=== PATIENT | female | born 1990 ===

== ENCOUNTER 2020-11-28 20:26 | Emergency (ER) | payer BC, SELFPAY ==
[2020-11-28 20:30] VITALS: BP 126/65; PULSE 63; RESP 20; TEMP 36.7; O2SAT 99
--- NOTE | 2020-11-28 20:43 | ED.ANIMALBIT ---
HPI - Animal Bite General Chief Complaint: Animal Bite Stated Complaint: cut hand Source: patient, family and RN notes reviewed Mode of arrival: ambulatory Limitations: no limitations History of Present Illness complaint: animal bite Onset (ago): minute(s) (20) Animal: dog Mechanism: bite Location - Extremities: Left: hand Pain description: dull Context: animals fighting Associated symptoms: bleeding Treatments prior to arrival: wound dressing(s) Related Data Patient tetanus UTD: Yes Home Medications Medication Instructions Recorded Confirmed etonogestrel 0.12 mg-ethinyl 1 vag ring VAGINAL ONCE 08/17/19 11/28/20 estradiol 0.015 mg/24 hr vaginal ring Allergies Allergy/AdvReac Type Severity Reaction Status Date / Time No Known Allergies Allergy Unverified 08/17/19 13:23 Review of Systems Review of Systems: All systems reviewed & are unremarkable except as noted in HPI and below PMFSH Past Medical History Medical History (Updated 11/28/20 @ 21:29 by Willis Mayer MD) Anxiety Nicotine dependence Obesity, Class II, BMI 35-39.9 Surgical History Surgical History No history of previous surgery Family History Family History Mother Factor 5 Leiden mutation, heterozygous Social History Social History Smoking packs per day: 0.5 Smoking cigarettes per day: 10.0 Years smoked: 2 Smoking pack-years: 1.00 Smoking status: Former smoker Tobacco type: cigarettes Alcohol intake: current Substance use: current Substance use type: marijuana Additional living arrangements comments: Additional occupation/education comments: [employer] Gender identity (if verbalized by the patient): Female Spiritual care concerns: No Exam Const: General: healthy appearing and no acute distress Nutritional Appearance: well nourished Orientation/consciousness: patient oriented x3 HENMT: Head: normal to inspection Ears: external ears normal Eyes: Conjunctivae: conjunctivae normal Pupils: Equal, round and reactive pupils present EOM: EOMs intact bilaterally Chest: Chest palpation & inspection: normal inspection of the chest Resp: Effort & Inspection: normal respiratory effort Auscultation: clear to auscultation bilaterally Cardio: Rate: regular rate Rhythm: regular rhythm GI: GI Palp: Yes Soft to palpation and No Tenderness to palpation present (GI) Auscultation: normal bowel sounds Back/Spine/Pelvis: Cervical Spine: cervical ROM normal Thoracic/Lumbar Spine: thoraco-lumbar ROM normal Skin: General skin exam: normal color Wounds: wounds noted laceration left lateral hand size (3.5 cm), puncture wound left dorsal hand size (0.5 cm) and other (X 2) Neuro: General: patient oriented x3, moves all extremities and no focal motor deficits Speech: normal speech Gait exam (Neuro): Normal gait present Extrem: General: normal to inspection and no pedal edema Psych: Appearance: grossly normal and well kempt Mental Status: mental status grossly normal Affect: normal affect Attitude: cooperative Thought content: Yes Normal thought content present Course Vital Signs Vital signs: Vital Signs Temperature 36.7 C 11/28/20 20:30 Pulse Rate 63 11/28/20 20:30 Respiratory Rate 20 11/28/20 20:30 Blood Pressure 126/65 11/28/20 20:30 Pulse Oximetry 99 11/28/20 20:30 Temperature 36.7 C 11/28/20 20:30 Pulse Rate 63 11/28/20 20:30 Respiratory Rate 20 11/28/20 20:30 Blood Pressure 126/65 11/28/20 20:30 Pulse Oximetry 99 11/28/20 20:30 Procedures Laceration Laceration 1: Date: 11/28/20 Site: hand Side (If applicable): left Size (cm): 3.5 Description: irregular and contaminated Depth: simple, single layer Local Anesthetic: lidocaine 1%
[2020-11-28] MEDS: LIDOCAINE HCL 1% LOCAL INJ 20 ML VIAL (21:05)
[2020-11-28 21:33] VITALS: PULSE 82; RESP 20; TEMP 36.7; O2SAT 98
[2020-11-28] MEDS: AMOXICILLIN/CLAVULANATE K 875-125 MG TAB 1 TABLET PO (21:35)
== END 2020-11-28 21:40 | disposition home or self-care (01) ==
PROVIDERS: Emergency Provider Emergency Medicine; PCP Nurse Practitioner Family
DX: S61.412A Laceration without foreign body of left hand, initial encounter (principal); W54.0XXA Bitten by dog, initial encounter
CPT/HCPCS: 12002; 99282; 99283; A9270

== ENCOUNTER 2021-08-01 11:30 | Outpatient (CLI) | payer BC, SELFPAY ==
[2021-08-01 12:45] LABS: SARS-CoV-2 RNA PCR Positive (Negative)
== END 2021-08-01 11:31 | disposition home or self-care (01) ==
LOC: CHSLAB 11:33
PROVIDERS: PCP Nurse Practitioner Family; Visit Provider Family Medicine
DX: U07.1 COVID-19 (principal)
CPT/HCPCS: C9803; U0003; U0005

== ENCOUNTER 2024-06-18 21:35 | Observation (INO) | payer OTHER, SELFPAY ==
[2024-06-18] VITALS (9 sets, daily range): BP systolic 126–140; BP diastolic 73–93; PULSE 78–101; O2SAT 98–100
--- NOTE | 2024-06-18 22:00 | PC.NURSE ---
RN visually assessed pt's bleeding. Small amount of blood noted on the washcloth the pt had in her underwear. RN gave pt a pad to put in her undewear to better assess her bleeding.
--- NOTE | 2024-06-18 22:00 | LDADM ---
This patient, Jazmyn Mercado, was admitted to OB Post 116 on 06/18/24 at 21:35. Plans for labor, pain management and were discussed with patient. Patient/family oriented to hospital policies and general routines including ID bracelet, bed and alarms, visiting hours, pain management, procedures, bathroom and other care routines, personal items, smoking policy, room service/diet and guest tray routines, infant security routines, and visiting hours. Patient/Family are encouraged to report perceived risks to care and to ask questions if they do not understand what they are told or what they should do. See OBIX for further documentation.
--- NOTE | 2024-06-18 22:55 | PC.NURSE ---
RN assessed the bleeding on the pad. No new bleeding noted on the pt's pad.
--- NOTE | 2024-07-16 21:02 | PM.OBTRLD ---
OB - Triage/Final Diagnosis Visit Information Comments/Additional reasons for admission: I have assessed the risk for this patient, Jazmyn Mercado, and determined that she would benefit from observation care. Final Diagnosis (1) Vaginal bleeding during : Code(s): O46.90 - Antepartum hemorrhage, unspecified, unspecified trimester Status: Acute
== END 2024-06-18 23:31 | disposition home or self-care (01) ==
PROVIDERS: Admitting Provider Obstetrics & Gynecology; PCP Nurse Practitioner Family; Visit Provider Obstetrics & Gynecology
DX: O46.93 Antepartum hemorrhage, unspecified, third trimester (principal); Z3A.35 35 weeks gestation of pregnancy
CPT/HCPCS: G0378; G0379

== ENCOUNTER 2024-07-13 00:01 | Inpatient (IN) | payer OTHER, SELFPAY ==
[2024-07-13] VITALS (218 sets, daily range): BP systolic 74–156; BP diastolic 42–104; PULSE 55–142; RESP 16; TEMP 36.4–37.6; O2SAT 81–100; BMI 37.3
--- NOTE | 2024-07-13 00:21 | LDADM ---
This patient, Jazmyn Mercado, was admitted to Labor/Delivery/Recovery 106 on 07/13/24 at 00:01. Plans for labor, pain management and were discussed with patient. Patient/family oriented to hospital policies and general routines including ID bracelet, bed and alarms, visiting hours, pain management, procedures, bathroom and other care routines, personal items, smoking policy, room service/diet and guest tray routines, infant security routines, and visiting hours. Patient/Family are encouraged to report perceived risks to care and to ask questions if they do not understand what they are told or what they should do. See OBIX for further documentation.
[2024-07-13] MEDS: LACTATED RINGERS 1,000 ML 125 ML IV CONT ×2 (01:15→09:32)
[2024-07-13 01:16] LABS: Basophils Absolute Auto 0.2 K/mm3 (0.0-0.1); Basophils Percent Auto 1.3 % (0.2-1.2); Eosinophils Absolute Auto 0.5 K/mm3 (0-0.3); Eosinophils Percent Auto 3.6 % (0-4.4); Hematocrit 36.9 % (37.0-47.0); Hemoglobin 12.2 g/dL (12.0-15.0); Immature Granulocyte Absolute 0.45 K/mm3 (0.00-0.031); Immature Granulocyte Percent A 3.6 % (0-0.5); Lymphocytes Absolute Auto 2.91 K/mm3 (0.9-3.2); Mean Corpuscular HGB Conc 33.1 g/dl (32-36); Mean Corpuscular Hemoglobin 29.3 pg (26-34); Mean Corpuscular Volume 88.7 fl (80-100); Mean Platelet Volume 10.7 fl (7.4-10.4); Monocytes Absolute Auto 1.5 K/mm3 (0.1-0.6); Monocytes Percent Auto 11.5 % (2.6-8.5); Neutrophils Absolute Auto 7.2 K/mm3 (1.3-6.7); Platelet Count Result 309 k/mm3 (150-375); Red Blood Count 4.16 M/mm3 (4.2-5.4); Red Cell Distribution Width 12.8 % (11.5-14.5); White Blood Count 12.6 K/mm3 (4.5-10.0)
[2024-07-13] MEDS: AMPICILLIN 2 GM/NS 100 ML 2 GM/100 ML BAG IVPB (01:16)
[2024-07-13] MEDS: OXYTOCIN 30 UNITS/NS 500 ML 30 UNITS/500 ML BAG IV CONT (01:17)
[2024-07-13] MEDS: CALCIUM CARBONATE (TUMS) 500 MG (200 MG ELEMENTAL) PO (01:30)
[2024-07-13 02:04] LABS: HIV 1/2 Ab P24 Ag Result Negative (Negative)
[2024-07-13 02:22] LABS: Rapid Plasma Reagin Non-Reactive (NonReactive)
[2024-07-13] MEDS: AMPICILLIN 1 GM/NS 50 ML 1 GM/50 ML BAG IVPB ×3 (05:30→13:30)
--- NOTE | 2024-07-13 08:01 | WPDOBADMIT ---
Obstetrics - Admit Note Admission Note: record reviewed. No pertinent additions to the history and/or any subsequent changes in the physical findings that are not consistent with the expected course of the were found. Additions to the history and/or subsequent changes in the physical findings follow. IOL, SVE 3/80/-2, AROM clear odorless fluid, anticipate vaginal delivery
--- NOTE | 2024-07-13 12:01 | WPDANESEPPF ---
Anes - Initial Pre Proc Eval Procedure: labor epidural Date/Time: 07/13/24 12:01 Surgeon: Juni Turcios MD Pre Op Diagnosis: labor pain Pre Op Diagnosis: IOL Patient Data Age: 33 Gender: F Height: 1.7 m Weight: 108 kg Last Vital Signs Temp 36.6 C 07/13/24 10:00 Pulse 71 07/13/24 12:01 BP 156/93 H 07/13/24 12:01 Pulse Ox 97 07/13/24 07:36 O2 Del Method Room Air 07/13/24 00:21 Allergies Allergy/AdvReac Type Severity Reaction Status Date / Time No Known Allergies Allergy Verified 07/13/24 00:32 Home Medications ?Medication ?Instructions ?Recorded ?Confirmed ?Type vits no.126-ferrous fum 1 tablet PO DAILY 06/17/24 07/13/24 History 28 mg iron-folic acid 800 mcg tablet (Classic ) famotidine 20 mg tablet (Pepcid) 20 mg PO DAILY 07/13/24 07/13/24 History Laboratory Tests 07/13/24 00:17 WBC 12.6 H K/mm3 (4.5-10.0) RBC 4.16 L M/mm3 (4.2-5.4) Hgb 12.2 g/dL (12.0-15.0) Hct 36.9 L % (37.0-47.0) MCV 88.7 fl (80-100) MCH 29.3 pg (26-34) MCHC 33.1 g/dl (32-36) RDW 12.8 % (11.5-14.5) Plt Count 309 k/mm3 (150-375) MPV 10.7 H fl (7.4-10.4) Immature Gran % (Auto) 3.6 H % (0-0.5) Neut % (Auto) 57.0 % (45.5-73.1) Lymph % (Auto) 23.0 % (18.3-44.2) [place] % (Auto) 11.5 H % (2.6-8.5) Eos % (Auto) 3.6 % (0-4.4) Baso % (Auto) 1.3 H % (0.2-1.2) Lymph # (Auto) 2.91 K/mm3 (0.9-3.2) [place] # (Auto) 1.5 H K/mm3 (0.1-0.6) Eos # (Auto) 0.5 H K/mm3 (0-0.3) Baso # (Auto) 0.2 H K/mm3 (0.0-0.1) Abs Immat Gran (auto) 0.45 H K/mm3 (0.00-0.031) Absolute Neuts (auto) 7.2 H K/mm3 (1.3-6.7) Absolute Nucleated RBC 0.000 K/mm3 (0.0-0.012) Nucleated RBC % 0.0 % (0.0-0.2) RPR Non-reactive (NonReactive) HIV 1&2 Ab/P24 Ag 4thGn Negative (Negative) Blood Type O Positive Antibody Screen Negative Patient hx anesthesia problems: none Family hx anesthesia problems: none Results Review: All pre-operative results and documents have been reviewed as part of the pre-operative evaluation. [facility] Past Medical History Medical History Anxiety Miscarriage Nicotine dependence Obesity, Class II, BMI 35-39.9 Surgical History Surgical History No history of previous surgery Family History Family History Mother Factor 5 Leiden mutation, heterozygous Social History Social History Smoking packs per day: 0.5 Smoking cigarettes per day: 10.0 Years smoked: 2 Smoking pack-years: 1.00 Smoking status: Former smoker Tobacco type: cigarettes Alcohol intake: current Alcohol use details: social Substance use: never Substance use type: marijuana Do You Feel Safe in your Home?: Yes Lack of Transportation: No Lack of Food: Never True Current Housing: I Have Housing Concerned About Future Housing: No Difficulty Paying Gas/Electric Bills: No Difficulty Paying for Meds: No Currently Unemployed: No Education: High School Diploma/GED Difficulty w/ Childcare or Family Care: No Living arrangements: with family Additional living arrangements comments: Occupation/Education: occupation Additional occupation/education comments: [employer] Gender identity (if verbalized by the patient): Female Spiritual care concerns: No Anes - Eval Final PreProcedure Day of Procedure 07/13/24 12:01 Patient weight: obese ASA classification: II Anesthetic plan: proceed Anesthesia type and monitoring: regional epidural and standard monitoring Results Review: All pre-operative results and documents have been reviewed as part of the pre-operative evaluation. Informed Consent: The patient's anesthetic plan and its attendant risks and benefits were discussed with the patient/family/POA. Questions were solicited and answers provided to the satisfaction of the patient/family/POA.
[2024-07-13] MEDS: ONDANSETRON INJ 4 MG/2 ML VIAL IV PUSH (15:30)
--- NOTE | 2024-07-13 18:39 | PM.OBPRVD ---
OB - Vaginal Delivery Note Procedure Delivery date: 07/13/24 Induction method: AROM and Per Pitocin Protocol Delivery monitor: External FHT and External Uterine Route of delivery: Episiotomy description: Right Mediolateral Delivery repair: vicryl Specimen: No Quantitative Blood Loss (ml): 125 Anesthesia type: Epidural Disposition: Floor Narrative: pt pushing effectively and perineum unable to stretch, FHR 80's, discussed with pt RML to ease delivery. RML and then baby delivered easily with one push Baby Date of : 07/13/24 Time of : 18:23 Gestational Age by Date: 39 Infant gender: Male presentation: vertex position: Right Occiput Anterior Placenta delivery description: Spontaneous Cord Vessel Description: 3 Vessels and Delayed Cord Clamping score one minute: 9 score five minutes: 9
[2024-07-13] MEDS: OXYTOCIN 30 UNITS/NS 500 ML 30 UNITS/500 ML BAG 125 UNITS IV CONT (18:53)
[2024-07-13] MEDS: IBUPROFEN 600 MG TABLET PO (19:31)
[2024-07-13] MEDS: BENZOCAINE 20% AER SPR (*SP) 56 GM CAN 1 SPRAY TOPICAL (19:32)
[2024-07-13] MEDS: WITCH HAZEL 40 PADS 1 PAD TOPICAL (19:32)
[2024-07-13] MEDS: ACETAMINOPHEN 325 MG TABLET 650 MG PO (19:32)
[2024-07-14 01:30] VITALS: BP 123/70; PULSE 84; RESP 16; TEMP 37.1; O2SAT 101
[2024-07-14] MEDS: ACETAMINOPHEN 325 MG TABLET 650 MG PO ×4 (01:42→20:45)
[2024-07-14] MEDS: IBUPROFEN 600 MG TABLET PO ×4 (01:43→20:45)
--- NOTE | 2024-07-14 02:21 | PC.NURSE ---
2130- pt admitted to room #292, oriented pt to room. Admission packet reviewed with pt and FOB. Pt instructed to call when needing to get up oob, pt agreed.
[2024-07-14 05:05] VITALS: BP 123/75; PULSE 89; RESP 16; TEMP 37; O2SAT 100
[2024-07-14 05:26] LABS: Hematocrit 32.2 % (37.0-47.0); Hemoglobin 10.5 g/dL (12.0-15.0)
[2024-07-14 07:40] VITALS: BP 136/76; PULSE 66; RESP 18; TEMP 36.6; O2SAT 99
--- NOTE | 2024-07-14 08:00 | PC.NURSE ---
Observed mother with latched to the [right] breast in [cradle] position. [was] able to maintain an appropriate latch. Mother [declines] nipple pain/discomfort [throughout feeding]. Mom can tell when he is just on the nipple vs. when he has a deeper latch. Mother was shown how to create a deeper latch while baby is actively nursing. He did begin smacking during the feeding and we adjusted the latch to stop the loss of suction. Encouraged mother to keep infant awake and nursing at the breast for 15 minutes. admission packet given and reviewed. Mom declines WIC at this time but knows we can send over a referral if she chooses. She has her own Mom Cozy pump and hopes to add pumping in once is well established so she can create a stockpile of milk for baby. Mother voiced understanding of the education shared, to call for assistance if the does not latch or if there is discomfort with . name/number on communication board. Reported to the Primary RN.?
[2024-07-14] MEDS: DOCUSATE SODIUM 100 MG CAPSULE PO ×2 (08:07→17:31)
[2024-07-14] MEDS: MULTIVIT/MIN/PREN/FOL AC/IRON TABLET 1 TAB PO (08:11)
--- NOTE | 2024-07-14 08:34 | P.PNOB_ITS ---
OB - PN: Subj Subjective Date/time seen: 07/14/24 08:34 Patient comments: no complaints, pain well controlled, incisional pain, tolerating diet and flatus present OB - PN: Obj Data Labs 07/14/24 04:49 Labs: Laboratory Results - last 24 hr 07/14/24 04:49 Hgb 10.5 L Hct 32.2 L OB - PN A/P Plan day: 1 Plan: routine care Comments: No problems, routine care Time Spent With Patient Time: Total time spent is greater than 50% in coordination of care (as documented) at patient's floor/unit and/or counseling patient: Exam 2 Const: General: comfortable, no acute distress and alert Resp: Effort & Inspection: normal respiratory effort Auscultation: no crackles, no rales and no rhonchi Cardio: Rate: regular rate Heart sounds: no click, no murmurs and no rubs GI: Inspection: non-distended GI Palp: No Tenderness to palpation present (GI) Auscultation: normal bowel sounds Other: Incision - CDI Extrem: General: normal to inspection, no pedal edema and no calf tenderness
[2024-07-14 11:15] VITALS: BP 135/75; PULSE 92; RESP 16; TEMP 37.1; O2SAT 98
[2024-07-14 11:35] VITALS: BP 122/76; PULSE 74; RESP 18; TEMP 36.5; O2SAT 98
--- NOTE | 2024-07-14 16:32 | WPDANLDPN2 ---
Anes-Prog Note L&D Date/Time: 07/14/24 16:32 Comfortable throughout: labor and delivery Neuraxial method: epidural Epidural/Spinal procedure site: clean & non-tender Neuro status: Neuro function grossly intact. Cardiovascular status: normal Respiratory status: normal Airway patency: baseline Mental status: baseline Post-Op hydration status: normal Vital Signs: Last Vital Signs Temp 36.5 C 07/14/24 11:35 Pulse 74 07/14/24 11:35 Resp 18 07/14/24 11:35 BP 122/76 07/14/24 11:35 Pulse Ox 98 07/14/24 11:35 O2 Del Method Room Air 07/14/24 11:15 Pain score (VAS): 0 I/O: Intake & Output 07/14/24 07/14/24 07/14/24 07:59 15:59 23:59 Intake Total 480 Balance 480 Post-procedural complaints: none Patient feedback: Patient satisfied with anesthetic care.
[2024-07-15] MEDS: IBUPROFEN 600 MG TABLET PO ×2 (02:37→08:53)
[2024-07-15] MEDS: ACETAMINOPHEN 325 MG TABLET 650 MG PO ×2 (02:38→08:53)
[2024-07-15 07:25] VITALS: BP 121/70; PULSE 70; RESP 18; TEMP 36.9; O2SAT 98
[2024-07-15] MEDS: MULTIVIT/MIN/PREN/FOL AC/IRON TABLET 1 TAB PO (08:54)
[2024-07-15] MEDS: DOCUSATE SODIUM 100 MG CAPSULE PO (08:54)
[2024-07-15] MEDS: MEASLES,MUMPS,RUBELLA VACCINE 0.5 ML VIAL SUB-Q (08:54)
--- NOTE | 2024-07-15 09:21 | P.PNOB_ITS ---
OB - PN: Subj Subjective Date/time seen: 07/15/24 09:21 Interval history: PPD#2 Doing well, no issues Pain well controlled Breast feeding Ready for discharge home today OB - PN: Obj Data Labs 07/14/24 04:49 OB - PN A/P Assessment and Plan (1) (spontaneous vaginal delivery): Code(s): O80 - Encounter for full-term uncomplicated delivery Status: Acute Plan day: 2 Plan: routine care and discharge home Time Spent With Patient Time: Total time spent is greater than 50% in coordination of care (as documented) at patient's floor/unit and/or counseling patient: Review of Systems 2 Review of Systems: All systems reviewed & are unremarkable except as noted in HPI and below Exam 2 Const: General: comfortable and no acute distress O rientation/consciousness: patient oriented x3 Resp: Effort & Inspection: normal respiratory effort
--- NOTE | 2024-07-15 09:25 | P.DS_ITS ---
DS: Admitting Diagnosis Discharge Date 07/15/24 Admitting Diagnosis labor DS: Discharge Diagnosis Discharge Diagnosis (1) (spontaneous vaginal delivery): Code(s): O80 - Encounter for full-term uncomplicated delivery Status: Acute OB - DS: Summary OB Procedures : None OB Procedures Intrapartum: Spontaneous Vag Delivery OB Procedures: : None Peripartum Data Episiotomy description: Right Mediolateral Time Spent with Patient Time attestation: Total time spent providing and/or coordinating discharge services: Discharge Plan Discharge Attending physician on discharge: Mandeep Baldwin Consulting providers: Radha Carballo Discharging Clinician: Mandeep Baldwin Patient Disposition: Home, Self-Care Activity: may shower, as tolerated and pelvic rest Diet: as tolerated Patient Instructions: Antibiotic Form Patient Language: Turkmen Stand Alone Forms: General Discharge Information Follow-up/Referrals: Radha Carballo CNM [Certified Nurse [place] [facility]] - 5 Weeks Discharge Medications: New docusate sodium 100 mg Capsule 100 mg PO BID PRN (Reason: Constipation) Qty: 60 0RF ibuprofen 600 mg Tablet 600 mg PO Q6H PRN (Reason: Cramping) Qty: 30 0RF Continued Classic 28 mg iron- 800 mcg Tablet 1 tablet PO DAILY Discontinued famotidine [Pepcid] 20 mg tablet 20 mg PO DAILY Date of admission: 07/13/24 00:01 Primary Care Provider: Ila Gill Admitting Provider: Juni Turcios Attending physician on admission: Juni Turcios Condition: Stable
--- NOTE | 2024-07-15 14:07 | PC.NURSE ---
0750 Introductions were made, then consulted with patient to assess needs related to . Mother led the conversation with her?plans to feed?her and the?experience so far. Mother does plan on exclusively but baby did receive one formula bottle through the night as baby would not latch. Encouraged understanding of the benefits of skin to skin (demonstrating unwrapping infant and placing upright on her chest), stimulating with massage touch, changing positions to encourage wakefulness, how to watch for early feeding cues, responsive feeding, feeding on demand (aiming for 8-12 times in 24 hours, about every 2-3 hours), milk production, building/maintaining a milk supply, duration of feeding, signs of adequate intake/output and how to record on the feeding sheet. Infant is going to the nursery to see the mural painter at this time, mother to call out with next feeding so RN could assess latch and positioning. 1024 RN checked on mother as she had not heard from her, per mother baby breastfed at 0910 for 15 mins without any pain but mother does have a small blister on her right nipple. Plan is to discharge home later today, please call with next feeding. 1130 Mother called, she works well with her with encouragement and education. Reviewed positioning and ear, shoulder, hip alignment, supporting the breast to facilitate a deep latch, asymmetrical latch (off-center), leading with the chin with a big, open, wide gape and body close to mother. Infant latched optimally to the [right] breast in [football] position. Education given to the mother of how to visualize the suckling (with good rocking jaw motion), swallows (dropping of the lower jaw) and how to listen for drinking at the breast (the ka sound). was [able] to maintain latch without pain to mother protecting the nipple with optimal positioning and latching, swallows heard by RN. Reviewed comfort measures of healing with a warm, wet washcloth to rinse breast, then leave open to air-dry, good handwashing when or touching the breast/nipples to prevent infection. Mother voiced understanding of skin to skin, stimulating with massage touch, responsive feedings, hand expressed colostrum, talking to infant to encourage if it has been 2 -2.5 hours since the start of the last , to call if infant does not latch, or if there is discomfort with . Resources used for education were facilitated with the [visual educational handouts/ tool/mom and baby guide], Inpatient/outpatient resources provided with business card, feeding sheet, name written on the communication board, and the mom/baby guide. Parents voiced understanding of information, demonstrated learning and will call if there is a request for assistance. Reported to the Primary RN.
[2024-07-16 10:37] VITALS: BP 135/88; PULSE 70; RESP 18; TEMP 36.7; O2SAT 99
--- OUTSIDE RECORDS SUMMARY | 2024-07-18 06:53 | XMS_ITS | Patient Health Summary ---
Author Organization [facility] Address [address] [place] [address] Care Team Providers Care Ordnance Technician Name Role Phone Unavailable Primary Care Provider Unavailabl e Note from [facility],non-owned Affiliates and Associated Physician Practices is amultiple site organization consisting of ambulatory clinics and hospital sitesin [place], [place], [place] and [place]. This disclosure is being madepursuant to the Care Everywhere program and may not contain all information available regarding this patient. 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
--- OUTSIDE RECORDS SUMMARY | 2024-07-18 06:53 | XMS_ITS | Encounter Summary ---
Author Organization [facility] Address [address] [place] [address] Care Team Providers Care Long Goods Drier Name Role Phone Unavailable Primary Care Provider Unavailabl e Reason for Visit * Reason Onset Date Comments Appointment 08/27/2019 Encounter Details Date Type Department Care Team (Late st Contact Info) Description 08/27/2019 Telephone [facility] [address] [place] [address] Michelle Bhakta Appointment Social History Tobacco Use Types Packs/Day Years Used Date Smoking Tobacco: Never Assessed Sex and Gender Information Value Date Recorded Sex Assigned at Not on file Gender Identity Not on file Sexual Orientation Not on file documented as of this encounter Miscellaneous Notes * Telephone Encounter - Michelle Busch - 08/27/2019 9:43 AM CST Left patient a voicemail regarding her appointment tomorrow asking her to give us a call so that wecan update and verify her insurance. 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
--- OUTSIDE RECORDS SUMMARY | 2024-07-18 06:53 | XMS_ITS | Clinical Summary ---
Author Organization [facility] Address [address] [place] [address] Care Team Providers Care Clothing Sales Assistant Name Role Phone Unavailable Primary Care Provider Unavailabl e Source Comments [facility],non-owned Affiliates and Associated Physician Practices is amultiple site organization consisting of ambulatory clinics and hospital sitesin [place], [place], [place] and [place]. This disclosure is being madepursuant to the Care Everywhere program and may not contain all information available regarding this patient. 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 08/18/2019 Social History Tobacco Use Types Packs/Day Years Used Date Smoking Tobacco: Never Assessed Sex and Gender Information Value Date Recorded Sex Assigned at Not on file Gender Identity Not on file Sexual Orientation Not on file Plan of Treatment Health Maintenance Due Date Last Done Comments PAP SMEAR 1992 HIV SCREENING 11/23/2007 HEPATITIS C SCREENING 11/18/2010 DTAP/TDAP/TD VACCINES (1 - Tdap) 11/23/2011 HEPATITIS B VACCINE (1 of 3 - 19+ 3-dose series) 11/23/2011 DEPRESSION SCREENING 07/29/2023 COVID-19 VACCINE ( - 2023-2 5 season) 2024 INFLUENZA VACCINE (#1) 2024 ZOSTER VACCINE (1 of 2) 2042 HIB VACCINE Aged Out No longer eligi ble based on patient's age to complete this topic HPV VACCINE Aged Out No longer eligi ble based on patient's age to complete this topic MENINGOCOCCAL VACCINE Aged Out No allen maxim eligible based on patient's age to complete this topic PNEUMOCOCCAL VACCINE Aged Out No long er eligible based on patient's age to complete this topic
--- OUTSIDE RECORDS SUMMARY | 2024-07-18 06:53 | XMS_ITS | Continuity of Care Document ---
Author Organization [facility] Address [address] [place] [address] Care Team Providers Care Sow Farm Technician Name Role Phone JUVENTINO DIGGS Primary Care Provider Assessment Encounter Date Assessment Date Assessment LastModified by Organization Details LastModified Time 07/08/2024 07/08/2024 Patient is _38__weeks . Discussed plan. Not available 07/09/2024 11:20:12 Plan of Treatment Reminders Order Date Submit Date Provider Last Modified By Organization Details Last Modified Time Details Appointments None record ed. Lab None record ed. Referral None record ed. Procedures None record ed. Surgeries None record ed. Imaging None record ed. Medication Orders None record ed. Patient TargetsNo targets recorded. Patient InstructionsNo instructions recorded. Reason for Referral None Reported. Results Created Date Observation Date Name Description Value Unit Range Abnormal Flag Note LastModifiedBy Organization Detail LastModifiedTime 05/04/2005/04/2024 non-s tress test No observ ation record ed. [email or web address] Dahinda [address], [place], [address], 05/04/2024 12:19:11 05/04/20 24 05/04/2024 US, obste tric, follo w-up No observ ation record ed. [email or web address] Lavinia [address], [place], [address], 05/04/2024 22:27:21 05/04/20 24 05/04/2024 US, obste tric, bioph ysica l profi le No observ ation record ed. [email or web address] Dahinda [address], [place], [address], 05/04/2024 17:18:32 05/18/2005/18/2024 US, obste tric, follo w-up No observ ation record ed. [facility] [address], [place], [address], 05/18/2024 18:12:58 05/18/20 24 05/18/2024 US, obste tric, follo w-up No observ ation record ed. [address]avin[address], [place], [address], 05/20/2024 18:31:50 06/19/20 24 06/19/2024 US, obste tric, follo w-up No observ ation record ed. [email or web address] [address], [place], [address], 06/19/2024 20:46:58 06/19/2006/19/2024 US, obste tric, follo w-up No observ ation record ed. [facility] [address], [place], [address], 06/19/2024 17:04:08 Result Notes None recorded. Problems Name Problem SNOMED Code Status Onset Date Resolution Date Notes Provider Name and Address Organization Details Recorded Time Pregnanc y test negative 658181457 Completed 201412/08/2021 Negative Pregnanc y Test;Pra ctice ID: 0001 Jamee snyder [facility] 2 11:30:32 Amenorrh ea 50782641 Completed 201412/08/2021 AMENORRH EA;Pract ice ID: 0001 Jamee snyder [facility] 2 11:30:31 Routine antenata l care Completed 201412/08/2021 Supervis ion of other normal pregnanc y;Practi ce ID: 0001 Jamee snyder, [facility] 2 11:30:31 Pregnanc y test positive 876964989 Completed 201412/08/2021 Positive Pregnanc y Test;Pra ctice ID: 0001 Jamee snyder, [facility] 2 11:30:32 Uterine size for dates discrepa ncy [id number] Completed 201412/08/2021 UTERINE SIZE MARKO-ANTE PAR;Prac lovely ID: 0001 [facility] 11:30:32 Threaten ed miscarri age 70704819 Completed 201412/08/2021 Threaten ed , antepart um;Pract ice ID: 0001 [facility] 2 11:30:32 Missed miscarri age [id number] Completed 201412/08/2021 Missed ;Practic e ID: 0001 Jamee snyder, [facility] 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 2 11:30:32 Pelvic and perineal pain 315691814 Completed 201812/08/2021 Pelvic and perineal pain;Pra ctice ID: 0001 Jamee snyder, [facility] 2 11:30:32 Finding related to pregnanc y Completed 201812/08/2021 Recurren t pregnanc y loss;Pra ctice ID: 0001 Jamee snyder [facility] 2 11:30:32 Female infertil ity associat ed with anovulat ion [id number] Completed 201812/08/2021 Female infertil ity associat ed with anovulat ion;Prac lovely ID: 0001 Jamee Cruz [facility], [facility] 2 11:30:31 Surveill ance of contrace ption Completed 201812/08/2021 Encounte r for surveill ance of contrace ptives, unspecif ied;Prac lovely ID: 0001 Jamee Cruz [facility], [facility] 2 11:30:32 Venereal disease screenin g Completed 201312/08/2021 Screenin g examinat ion for venereal disease; Recorded Elsewher e: No Locat ion: [facility] S ource: EHR [employer] Specialist bee: N Odilonti ce ID: 0001 Ken lable Time: 02:15:00 PM Jamee Cruz [facility] 2 11:30:31 Complete Completed 201312/08/2021 Spontane ous , complete , without mention of complica tion;Rec orded Elsewher e: No Locat ion: [facility] S ource: EHR [employer] Specialist bee: N Odilonti ce ID: 0001 Ken lable Time: 11:45:00 AM Jamee Cruz [facility] 2 11:30:32 Speciali zed medical examinat ion Completed 201312/08/2021 Other specifie d chlamydi al diseases ;Recorde d Elsewher e: No Locat ion: [facility] S ource: EHR [employer] Specialist bee: N Practi ce ID: 0001 Ken lable Time: 02:15:00 PM Jamee Cruz [facility] 2 11:30:32 Adult health examinat ion Completed 201312/08/2021 ROUTINE MEDICAL EXAM;Rec orded Elsewher e: No Locat ion: [facility] S ource: EHR [employer] Specialist bee: N Odilonti ce ID: 0001 Ken lable Time: 02:15:00 PM Jamee Cruz [facility], [facility] 2 11:30:32 Speciali zed medical examinat ion Completed 201312/08/2021 ROUTINE COMIC BOOK WRITER EXAMINAT ION;Ramone rded Elsewher e: No Locat ion: [facility] S ource: EHR [employer] Specialist bee: N Odilonti ce ID: 0001 Ken lable Time: 02:15:00 PM Jamee snyder, [facility] 2 11:30:32 Oligomen orrhea [id number] Completed 201412/08/2021 Oligomen orrhea;R ecorded Elsewher e: No Locat ion: [facility] S ource: EHR [employer] Specialist bee: N Odilonti ce ID: 0001 Ken lable Time: 06:00:00 PM Jamee Cruz [facility], [facility] 2 11:30:32 Screenin g for malignan t neoplasm of cervix Completed 201312/08/2021 Screenin g for malignan t neoplasm s of the cervix;R ecorded Elsewher e: No Locat ion: [facility] S ource: EHR [employer] Specialist bee: N Emilie ce ID: 0001 Ken lable Time: 02:15:00 PM Jamee Cruz [facility], [facility] 2 11:30:31 Pregnanc y 32412407 Active 2023 Marian Valdez [facility], [facility] 4 13:31:50 Mixed anxiety and depressi ve disorder 127719109 Active 4 EPDS score 15 Marian Valdez [facility], [facility] 4 13:32:54 Past pregnanc y history of multiple miscarri ages Active former partner had transloc ation Radha Carballo, [place] [address], [place], [address], [place] [facility] 4 14:03:22 Rubella non-immu ne 925451658 Active MMR PP Jessica snyder, [facility] 4 10:33:54 Rubella non-immu ne 239312660 Active MMR PP Jessica snyder, [facility] 4 10:33:54 Problem Notes None recorded. Procedures Surgical History Date Name Laterality Status Provider Name and Address Organization Details Recorded Time 2 Date of Last Pap Smear completed [facility] 04/22/2024 13:24:55 1 extraction of wisdom tooth completed [facility] 04/22/2024 13:29:15 Imaging Results None recorded. Procedure Notes None recorded. Medical Equipment None Reported. Allergies No known drug allergies Medications Name Sig Start Date Stop Date Status Note LastModified by Organization Details LastModified Time fluconazo le 100 mg tablet 07/13 completed Not Available Not Available Not Available azithromy ross 250 mg tablet 12/12 completed Not Available Not Available Not Available Cytotec 200 mcg tablet take 4 (800MCG) by Vaginal route every bedtime for 3 days 02/16 completed Prescrib ed Elsewher e: No [facility] odify By: kenneth angulo DateTime : 02/15/20 15 03:15:00 PM Not Available Not Available Not Available clomiphen e citrate 50 mg tablet take 1 Tablet by oral route every day for 5 days days 3-7 of cycle 01/30 completed Prescrib ed Elsewher e: No [facility] odify By: rianna flores DateTime : 01/27/20 19 03:00:00 PM Not Available Not Available Not Available sumatript an 25 mg tablet 12/12 completed Not Available Not Available Not Available Macrobid 100 mg capsule 05/20 completed Not Available Not Available Not Available ofloxacin 0.3 % ear drops 04/22 completed Not Available Not Available Not Available amitripty line 25 mg tablet 12/12 completed Not Available Not Available Not Available amitripty line 10 mg tablet 12/12 completed Not Available Not Available Not Available propranol ol ER 80 mg capsule,2 4 hr,extend ed release 12/12 completed Not Available Not Available Not Available misoprost ol 100 mcg tablet take 1 tablet by oral route 4 times every day after meals and at bedtime 04/30 completed Prescrib ed Elsewher e: Yes [facility] By: [email or web address] trick En counter DateTime : 07/15/20 13 09:45:00 AM Not Available Not Available Not Available Provera 10 mg tablet take 1 tablet by oral route every day 01/12 completed Prescrib ed Elsewher e: No Locat ion: [facility] odify By: leandra ossa DateTime : 01/04/20 15 06:00:00 PM Not Available Not Available Not Available mupirocin 2 % topical ointment 04/22 completed Not Available Not Available Not Available fluticaso ne propionat e 50 mcg/actua tion nasal spray,jaswant pension 12/12 completed Not Available Not Available Not Available amoxicill in 875 mg-potass ium clavulana te 125 mg tablet 04/22 completed Not Available Not Available Not Available etonogest rel 0.12 mg-ethiny l estradiol 0.015 mg/24 hr vaginal ring Insert 1 vaginal ring every month by vaginal route. 04/22 completed Not Available Not Available Not Available take 1 tablet by oral route every day 01/03 completed Prescrib ed Elsewher e: Yes [facility] By: ángel Encount er DateTime : 07/15/20 13 09:45:00 AM Not Available Not Available Not Available Raoul-C DHA 35 mg-1 mg-200 mg capsule take 1 capsule by oral route every day 01/03 completed Prescrib ed Elsewher e: No [facility] By: [email or web address] trick En counter DateTime : 04/30/20 14 02:15:00 PM Not Available Not Available Not Available LAMP SHADE MAKER-PNV-DH A 28 mg iron-1 mg-200 mg capsule take 1 capsule by oral route every day 01/12 completed Prescrib ed Elsewher e: No Locat ion: [facility] annamarie [facility] odify By: dmrose E ncounter DateTime : 01/04/20 15 06:00:00 PM Not Available Not Available Not Available Annovera 0.15 mg-0.013 mg/24 hr vaginal ring Insert ring vaginall y x 3wks, remove 1 wk ring free; then rinse & reinsert yearly vag ring. 04/22 completed Not Available Not Available Not Available Vitals Date Recorded Body weight Body mass index (BMI) Body height Systolic blood pressure Diastolic blood pressure Provider Name and Address Organization Details Last Updated DateTime 07/08/2024 642949.5 3828 g 39.7 kg/m2 167.01 cm 135 mm[Hg] 89 mm[Hg] Marian Valdez [facility] 18:06:56 Social History Question Answer Notes LastModified by Organizat ion Details LastModified Time Tobacco Smoking Status Current Some Day Smoker Jamee Anthony snyder, [facility] 12/12/2021 11:03:45 What Is Your Level Of Alcohol Consumption? None [email or web address] Information not available 04/22/2024 If You Are , What Was Your Level Of Alcohol Consumption Prior To ? Occasional [email or web address] Information not available 04/22/2024 Are You Blind Or Do You Have Difficulty Seeing? No Information not available 12/12/2021 What Is Your Level Of Caffeine Consumption? Occasional Information not available 12/12/2021 In The 14 Days Before Symptom Onset, Have You Had Close Contact With A Laboratory-confir med COVID-19 While That Case Was Ill? No [email or web address] Information not available 04/22/2024 In The 14 Days Before Symptom Onset, Have You Had Close Contact With A Person Who Is Under Investigation For COVID-19 While That Person Was Ill? No Information not available 04/22/2024 Have You Been To An Area Known To Be High Risk For COVID-19? No [email or web address] Information not available 04/22/2024 Are You Deaf Or Do You Have Serious Difficulty Hearing? No Information not available 12/12/2021 What Type Of Diet Are You Following? REGULAR Information not available 12/12/2021 What Is The Highest Grade Or Level Of School You Have Completed Or The Highest Degree You Have Received? 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 No Information not available 04/22/2024 Do You Use Protection During Sex? No [email or web address] Information not available 04/22/2024 Do You Use Your Seat Belt Or Car Seat Routinely? Yes Information not available 12/12/2021 Do You Have Smoke And Carbon Monoxide Detectors In Your Home? Yes Information not available 12/12/2021 How Much Tobacco Do You Smoke? No [email or web address] Information not available 04/22/2024 Do You Feel Stressed (tense, Restless, Nervous, Or Anxious, Or Unable To Sleep At Night)? [id number] Information not available 12/12/2021 Do You Use Any Illicit Or Recreational Drugs? No Information not available 12/12/2021 Do You Use Sunscreen Routinely? Yes Information not available 12/12/2021 Has Tobacco Cessation Counseling Been Provided? Yes [email or web address] Information not available 04/22/2024 On What Date Was Tobacco Cessation Counseling Provided? 07/01/2024 [email or web address] Information not available 07/01/2024 Have You Used IV Drugs? No [email or web address] Information not available 04/22/2024 Do You Or Have You Ever Used Any Other Forms Of Tobacco Or Nicotine? Yes [email or web address] Information not available 04/22/2024 Sex: Unknown Functional Status Question Answer Note LastModified by Organizat ion Details LastModified Time Do you have difficulty walking or climbing stairs? No Information not available 12/12/2021 Are you able to walk? [email or web address] Information not available 12/12/2021 Are you able to care for yourself? Yes Information not available 12/12/2021 Do you have difficulty dressing or bathing? No Information not available 12/12/2021 What is your exercise level? Occasional Information not available 12/12/2021 Mental Status None recorded. Family History Relationship Description Onset Age of this Age Resolved Age Notes LastModified by Organization Details LastModified Time Mother Clotting factor V assay Not available 2021 11:03:07 Notes:factor iv - mom Moth er: Factor IV Medical History Condition Response Other N Blood Transfusion N Dermatologic Disorders N Gestational Diabetes N Anxiety Disorder Y Autoimmune disease N Arthritis N Polyps N Infertility N Acid Reflux (GERD) Y Cancer N Varicosities N Stroke N Neurologic/Epilepsy N Fibromyalgia N Headaches N Kidney Disease N Heart Problems N Kidney or Bladder Problems N Eating Disorder N Art (IVF or FET) N Hepatitis/Liver Disease N No Past Medical History N Urinary Tract Infection N Asthma N Trauma/Violence N Thrombophilias N Allergies (Food, seasonal, environmental ) N Breast Cancer N Drug/Latex Allergies/Reactions N Lung Disease N Defects or Inherited Disease N Breast Problem N Hematologic disorders N Anesthesia Complications N History of STI N Deep Vein Thrombosis N Polycystic ovary syndrome N History of abnormal pap N Endometriosis N High Cholesterol N Thyroid Problems N GI Problems N Anemia N Psychiatric Illness N Ovarian Cancer N Diabetes N Pulmonary (TB, Asthma) N Eczema N Abuse/Domestic Violence N Depression/ depression Y Heart Disease N Pre-Eclampsia N Hypertension N Osteoporosis N Gynecological History Statement/Question Response Abnormal Pap N Flow Light Date of Last Mammogram Date of LMP 10/12/2023 On BCP's at Conception? N N Was last menstrual period normal Y STIs/STDs N HPV Vaccine Y Duration of Flow (days) 4 Current Control Method Are cycles usually normal Y Date of Last Colonoscopy Sexually Active? Y Date of DEXA bone scan Age of first menstrual cycle 15 Date of Last Pap Smear 07/13/2022 Sexual Problems? N LMP Approximate N Obstetrics History GPAL:G 5 P 0 0 4 0 Type Value Spontaneous 4 Living 0 Total 5 Past Encounters Encounter ID Performer Location Encounter Start Date Encounter Closed Date Diagnosis/Indication Diagnosis SNOMED-CT Code Diagnosis ICD10 Code [id number] Yolis Nazario Dah[facility] [address] [address] 06/19/2024 15:20:57 06/19/2024 16:27:38 Dilatation of renal pelvis 906866047 O36.8999 Z3A.35 [id number] Radha Carballo [facility] [address],[place] [address] 06/19/2024 15:21:10 06/19/2024 16:27:17 Gestation period, 35 weeks 83429792 Z3A.35 screening 2437 17096 Z36.85 [id number] Radha Carballo [facility] [address],[place] [address] 06/24/2024 09:21:04 06/24/2024 10:04:18 Gestation period, 36 weeks 95396472 Z3A.36 [id number] Radha Carballo [facility] [address],[place] [address] 07/01/2024 13:48:22 07/01/2024 16:28:18 Routine care 402100286 Z34.90 [id number] Radha Carballo [facility] [address],[place] [address] 07/08/2024 17:47:42 07/09/2024 11:57:03 Gestation period, 38 weeks 04847875 Z3A.38 Health Concerns Section Related Observation LastModified by Organization Detai ls LastModified Time None Recorded Concern Status LastModified by Organization Details LastModified Time None Recorded Payers Encounter Date Sequence Insurance Name Policy Number Policy Forbes Covered Member ID Forbes Member ID Guarantor Name 07/08/2024 1 [facility] ON OR AFTER 01/26/21 (MEDICAID REPLACEMENT - HMO) Yuli Mercado [id number] Yuli Mercado OBGyn Episode Ob Episode Information Episode Created Date Number of Fetuses Patient Bloodtype Patient rh Status Prepregnancy Weight lbs Domestic Partner Domestic Partner Phone Father Name Furnace Firer Status 04/22/20 24 1 O Positive [place] OPEN Fetus Data First Name Last Name Admitted to NICU Weight (g) Sex Living Outcome Pediatric Complications Fetus ID Race Codes Race Delivery Type [id number] Problems Problem Notes Problem Name Start Date End Date Resolution Snomed Code Not e Rubella non-immune 051428659 M MR BHATTI Past history of multiple miscarriages 9564333746 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 Mixed anxiety and depressive disorder 627668093 4 EPDS score 15 David Calculation DAVID Calculation Method Initial David Date Initial Exam Date Initial Exam Provider Initial Ultrasound Date Last Menstrual Period Date Ultra Sound Weeks Gestation Conception by IVF Embryo Age at Transfer Date of Transfer 07/18/20 24 12/12/19 24 12/12/2023 10/12/2023 9 Eighteen To Twenty Week David Update Ultra Sound Date Fundal Height At Umbil Quickening Date Ultra Sound Latest Weeks Gestation Final David Confirmed By Final David Confirmed Date Final David Date Ultra Sound Latest Days Gestation 02/20/20 24 19 0 Pre-naomi Flowsheet Flowsheet Date 04/22/2024 Watkins Score Blood Edema Fundus Height Fundus Units Glucose Ketones Leukocytes Nitrite Labor Signs Protein Cervic Dilation Cervic Effacement Cervic Station neg none none trace Type Weight in lbs Pre/Post Dialysis Refused Weight 209.076591483986 BP Diastolic BP Location Tested BP Systolic BP Type 83 128 Fetus Heart Rate Present A 157 Present Fetus Movement A Yes Comments Patient states that is havin g heartburn, pain in rib area and some BH contractions. ok for tums, pepcid, begin routine prental care moved back from [place], reviewed office, precautions, +FM, GCT today f/u w eeks Flowsheet Date 05/04/2024 Watkins Score Blood Edema Fundus Height Fundus Units Glucose Ketones Leukocytes Nitrite Labor Signs Protein Cervic Dilation Cervic Effacement Cervic Station none Type Weight in lbs Pre/Post Dialysis Refused 213.826629270081 BP Diastolic BP Location Tested BP Systolic BP Type 78 115 Fetus Heart Rate Present Fetus Movement A Yes Comments Patient states that is havin g some BH contractions. discussed rsv, tdap, covid, flu, education and precautions, decel heard on doppler plan NST today f/u 2 weeks Flowsheet Date 05/04/2024 Watkins Score Blood Edema Fundus Height Fundus Units Glucose Ketones Leukocytes Nitrite Labor Signs Protein Cervic Dilation Cervic Effacement Cervic Station Type Weight in lbs Pre/Post Dialysis Refused BP Diastolic BP Location Tested BP Systolic BP Type Fetus Heart Rate Present Fetus Movement Comments Flowsheet Date 05/04/2024 Watkins Score Blood Edema Fundus Height Fundus Units Glucose Ketones Leukocytes Nitrite Labor Signs Protein Cervic Dilation Cervic Effacement Cervic Station Type Weight in lbs Pre/Post Dialysis Refused BP Diastolic BP Location Tested BP Systolic BP Type Fetus Heart Rate Present Fetus Movement Comments Flowsheet Date 05/18/2024 [place]ins Score Blood Edema Fundus Height Fundus Units Glucose Ketones Leukocytes Nitrite Labor Signs Protein Cervic Dilation Cervic Effacement Cervic Station Type Weight in lbs Pre/Post Dialysis Refused BP Diastolic BP Location Tested BP Systolic BP Type Fetus Heart Rate Present Fetus Movement Comments Flowsheet Date 05/20/2024 Watkins Score Blood Edema Fundus Height Fundus Units Glucose Ketones Leukocytes Nitrite Labor Signs Protein Cervic Dilation Cervic Effacement Cervic Station none Type Weight in lbs Pre/Post Dialysis Refused 220.636128216265 BP Diastolic BP Location Tested BP Systolic BP Type 81 124 Fetus Heart Rate Present Fetus Movement A Yes Comments Patient states that is havin g some light cramping. reviewed US, discussed renal dilation plan rpt in 4 weeks, reviewed vaccines. planning classes at [place], discussed EIOL an option answered questions f/u 2 weeks Flowsheet Date 06/01/2024 Watkins Score Blood Edema Fundus Height Fundus Units Glucose Ketones Leukocytes Nitrite Labor Signs Protein Cervic Dilation Cervic Effacement Cervic Station 33 cm Type Weight in lbs Pre/Post Dialysis Refused 228.137503633193 BP Diastolic BP Location Tested BP Systolic BP Type 86 L arm 128 sitting Fetus Heart Rate Present A 145 Fetus Movement A Yes Comments no complaints, no problems, routine care, no contractions, no vaginal bleeding, no loss of fluid, no cramping Flowsheet Date 06/19/2024 Watkins Score Blood Edema Fundus Height Fundus Units Glucose Ketones Leukocytes Nitrite Labor Signs Protein Cervic Dilation Cervic Effacement Cervic Station Type Weight in lbs Pre/Post Dialysis Refused BP Diastolic BP Location Tested BP Systolic BP Type Fetus Heart Rate Present Fetus Movement Comments Flowsheet Date 06/19/2024 Watkins Score Blood Edema Fundus Height Fundus Units Glucose Ketones Leukocytes Nitrite Labor Signs Protein Cervic Dilation Cervic Effacement Cervic Station trace trace Type Weight in lbs Pre/Post Dialysis Refused 235.354323136269 BP Diastolic BP Location Tested BP Systolic BP Type 86 122 Fetus Heart Rate Present Fetus Movement A Yes Comments Patient had bleeding with in tercourse yesterday and some swelling. discussed precautions and education gbs next week efw 54% +FM Flowsheet Date 06/24/2024 Watkins Score Blood Edema Fundus Height Fundus Units Glucose Ketones Leukocytes Nitrite Labor Signs Protein Cervic Dilation Cervic Effacement Cervic Station trace 1cm 60% -2 Type Weight in lbs Pre/Post Dialysis Refused 236.895094100333 BP Diastolic BP Location Tested BP Systolic BP Type 84 129 Fetus Heart Rate Present Fetus Movement A Yes Comments Patient states that is havin g some heartburn and swelling. reviewed precautions, education ok for pepcid and tums, +FM IOL 07/13 at 0001 f/u one week GBS + Flowsheet Date 07/01/2024 Watkins Score Blood Edema Fundus Height Fundus Units Glucose Ketones Leukocytes Nitrite Labor Signs Protein Cervic Dilation Cervic Effacement Cervic Station trace 1cm 60% -2 Type Weight in lbs Pre/Post Dialysis Refused Weight [id number] BP Diastolic BP Location Tested BP Systolic BP Type 91 129 Fetus Heart Rate Present Fetus Movement A Yes Comments Patient is having back pain, rib pain, cramping, discharge and swelling. reviewed education and precautions, +FM reviewed plan, f/u one weeks Flowsheet Date 07/08/2024 Watkins Score Blood Edema Fundus Height Fundus Units Glucose Ketones Leukocytes Nitrite Labor Signs Protein Cervic Dilation Cervic Effacement Cervic Station 39 cm 3cm 70% -2 Type Weight in lbs Pre/Post Dialysis Refused [id number] BP Diastolic BP Location Tested BP Systolic BP Type 89 135 Fetus Heart Rate Present A 145 Fetus Movement A Yes Comments Patient is having rib pain, cramping and discharge. will change IOL to low dose pitocin reviewed precautions and education reviewed +Fm Menstrual History Last Menstrual Date Menses Monthly On Bcp Conception Prior Menses Frequency Hcg Plus Date Menarche Onset Age 0310/12/2023 Delivery Information Delivery Date Delivery Type Labor Anesthesia Weeks Gestation Incision Type Labor Labor Length Hrs Delivered By Post Complications Tubal Sterilization Discharge Date Comments Discharge Information Feeding Method Contraceptive Method Maternal HG B and HCT Levels
--- OUTSIDE RECORDS SUMMARY | 2024-07-18 06:53 | XMS_ITS | Referral Summary ---
Author Organization [facility] Address [address] [place] [address] Care Team Providers Care Car Seat Upholsterer Name Role Phone Unavailable Primary Care Provider Unavailabl e Source Comments [facility],non-owned Affiliates and Associated Physician Practices is amultiple site organization consisting of ambulatory clinics and hospital sitesin [place], [place], [place] and [place]. This disclosure is being madepursuant to the Care Everywhere program and may not contain all information available regarding this patient. 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
--- OUTSIDE RECORDS SUMMARY | 2024-07-18 06:53 | XMS_ITS | Data Portability ---
Author Organization [facility] [place] Address [address] [place] [address] [place] [address] Care Team Providers Care Sample Book Maker Name Role Phone JUVENTINO DIGGS Primary Care Provider Assessment Encounter Date Assessment Date Assessment LastModified by Organization Details LastModified Time 06/19/2024 06/19/2024 Patient is _35__weeks . Discussed plan. Not available 06/19/2024 16:22:30 06/24/2024 06/24/2024 Patient is __36_weeks . Discussed plan. Not available 06/24/2024 10:01:08 07/01/2024 07/01/2024 Patient is _37__weeks . Discussed plan. Not available 07/01/2024 15:46:56 07/08/2024 07/08/2024 Patient is _38__weeks . Discussed plan. Not available 07/09/2024 11:20:12 Plan of Treatment Reminders Order Date Submit Date Provider Last Modified By Organization Details Last Modified Time Details Appointments None recorded. Lab streptococc us group B, culture, unspecified specimen 2023 024 [facility] (Lab), [address], [place], [address], 16:40:18 Referral None recorded. Procedures None recorded. Surgeries None recorded. Imaging US, obstetric, follow-up 2023 024 [email or web address] [place], [address], [address], [place], [address], 21:15:15 Medication Orders None recorded. Patient TargetsNo targets recorded. Patient InstructionsNo instructions recorded. Reason for Referral None Reported. Results Created Date Observation Date Name Description Value Unit Range Abnormal Flag Note LastModifiedBy Organization Detail LastModifiedTime 06/19/20 24 06/19/2024 CULTU RE: GROUP B STREP SCREE N, REFLE X SUSCE PTIBI LITY result report SEE RESULT S BELOW abnormal Test: Cultu re: Group B Strep , Refle x Susce ptibi lity ([facility]/ [facility]/K H/[facility] ) Speci men Sourc e: Vagin a/Rec jamar Speci men Type: Vagin al/Re ctal Speci men Date: 06/19 1511 Resul t Date: 06/23 1535 Resul t Statu s: Final resul t Abnor mal: Yes Resul ting Lab: [facility] [address] [facility] [address] Tel: [phone] CULTU RE ----- ----- ----- --- Posit cecilia for Strep tococ cus agala ctiae (Grou p B) (Abno rmal) Clind amyci n = resis tant, eryth romyc in = resis tant. Cefaz alexander may be used for intra partu m proph ylaxi s in penic illin -leo rgic women at low risk, and Vanco mycin is recom eva d for women at high risk for anaph ylaxi s. Susce ptibi lity testi ng is not neces tessa for these drugs . Not Available [facility] (Lab) [address], [place], [address], 06/23/2024 16:40:18 06/19/2006/19/2024 US, obste tric, follo w-up No observ ation record ed. [email or web address], [place], [address], 06/19/2024 20:46:58 06/19/20 24 06/19/2024 US, obste tric, follo w-up No observ ation record ed. [facility] [address], [place], [address], 06/19/2024 17:04:08 Result Notes None recorded. Problems Name Problem SNOMED Code Status Onset Date Resolution Date Notes Provider Name and Address Organization Details Recorded Time Pregnanc y test negative 794866328 Completed 201412/08/2021 Negative Pregnanc y Test;Pra ctice ID: 0001 Jamee Cruz [facility], [facility] 2 11:30:32 Amenorrh ea [id number] Completed 201412/08/2021 AMENORRH EA;Pract ice ID: [address] [facility] 2 11:30:31 Routine antenata l care Completed 201412/08/2021 Supervis ion of other normal pregnanc y;Practi ce ID: 0001 Jamee Cruz [facility], [facility] 2 11:30:31 Pregnanc y test positive [id number] Completed 201412/08/2021 Positive Pregnanc y Test;Pra ctice ID: 0001 Jamee Cruz [facility], [facility] 2 11:30:32 Uterine size for dates discrepa ncy 895034012 Completed 201412/08/2021 UTERINE SIZE MARKO-ANTE PAR;Prac lovely ID: 0001 Jamee Cruz [facility], [facility] 2 11:30:32 Threaten ed miscarri age 26473206 Completed 201412/08/2021 Threaten ed , antepart um;Pract ice ID: [address] [facility] 2 11:30:32 Missed miscarri age 37045504 Completed 201412/08/2021 Missed ;Practic e ID: 0001 Jamee Cruz null, [facility] 2 11:30:[address] Concept Completed 201812/08/2021 Encntr for slot editor exam (general ) (routine ) w/o abn findings ;Practic e ID: 0001 Jamee snyder [facility] 2 11:30:32 Pelvic and perineal pain 518382372 Completed 201812/08/2021 Pelvic and perineal pain;Pra ctice ID: [address] [facility] 2 11:30:32 Finding related to pregnanc y Completed 201812/08/2021 Recurren t pregnanc y loss;Pra ctice ID: 0001 Jamee Cruz [facility] 2 11:30:32 Female infertil ity associat ed with anovulat ion [id number] Completed 201812/08/2021 Female infertil ity associat ed with anovulat ion;Prac lovely ID: [address] [facility] 2 11:30:31 Surveill ance of contrace ption Completed 201812/08/2021 Encounte r for surveill ance of contrace ptives, unspecif ied;Prac lovely ID: [address] [facility] 2 11:30:32 Venereal disease screenin g Completed 201312/08/2021 Screenin g examinat ion for venereal disease; Recorded Elsewher e: No Locat ion: [place] [facility] [facility] S ource: EHR Mapping Pilot bee: N Practi ce ID: 0001 [place] Time: 02:15:00 [facility] 11:30:31 Complete Completed 201312/08/2021 Spontane ous , complete , without mention of complica tion;Rec orded Elsewher e: No Locat ion: [facility] S ource: EHR Mapping Pilot bee: N Practi ce ID: 0001 Ken lable Time: 11:45:00 AM Jamee Cruz [facility], [facility] 2 11:30:32 Speciali zed medical examinat ion Completed 201312/08/2021 Other specifie d chlamydi al diseases ;Recorde d Elsewher e: No Locat ion: [facility] S ource: EHR Mapping Pilot bee: N Practi ce ID: 0001 Ken lable Time: 02:15:[address] [facility] 2 11:30:32 Adult health examinat ion Completed 201312/08/2021 ROUTINE MEDICAL EXAM;Rec orded Elsewher e: No Locat ion: [facility] S ource: EHR Mapping Pilot bee: N Practi ce ID: 0001 Ken lable Time: 02:15:00 PM Jamee Cruz [facility], [facility] 2 11:30:32 Speciali zed medical examinat ion Completed 201312/08/2021 ROUTINE UNDERWRITING TECHNICIAN EXAMINAT ION;Ramone rded Elsewher e: No Locat ion: [facility] S ource: EHR Mapping Pilot bee: N Odilonti ce ID: 0001 Ken lable Time: 02:15:[address] [facility] 2 11:30:32 Oligomen orrhea [id number] Completed 201412/08/2021 Oligomen orrhea;R ecorded Elsewher e: No Locat ion: [facility] S ource: EHR Mapping Pilot bee: N Practi ce ID: 0001 Ken lable Time: 06:00:[address] [facility] 2 11:30:32 Screenin g for malignan t neoplasm of cervix Completed 201312/08/2021 Screenin g for malignan t neoplasm s of the cervix;R ecorded Elsewher e: No Locat ion: [place] [facility] S ource: EHR Mapping Pilot bee: N Emilie ce ID: 0001 Ken lable Time: 02:15:00 PM Jamee Cruz [facility], [facility] 2 11:30:31 Pregnanc y 91776640 Active 2023 Marian Valdez [facility], [facility] 4 13:31:50 Mixed anxiety and depressi ve disorder 251713671 Active 4 EPDS score 15 Marian Valdez [facility], [facility] 4 13:32:54 Past pregnanc y history of multiple miscarri ages Active former partner had transloc ation Radha Carballo, [place] [address], [place], [address], [place] [facility] 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 4 10:33:54 Rubella non-immu ne 107851208 Active MMR PP Jessica Rae [facility], [facility] 4 10:33:54 Problem Notes None recorded. Procedures Surgical History Date Name Laterality Status Provider Name and Address Organization Details Recorded Time 2 Date of Last Pap Smear completed Marian Valdez [facility] 04/22/2024 13:24:55 1 extraction of wisdom tooth completed Marian Valdez [facility] 04/22/2024 13:29:15 Imaging Results Imaging Date Name Status LastModified by Organiz ation Details LastModified Time 06/19/2024 US, obstetric, follow-up completed [email or web address], [place], [address], 06/19/2024 20:46:58 06/19/2024 US, obstetric, follow-up completed [facility] [address], [place], [address], 06/19/2024 17:04:08 Procedure Notes None recorded. Medical Equipment None [...] Prescrib ed Elsewher e: No Locat ion: [facility] odify By: kenneth angulo DateTime : 02/15/20 15 03:15:00 PM Not Available Not Available Not Available clomiphen e citrate 50 mg tablet take 1 Tablet by oral route every day for 5 days days 3-7 of cycle 01/30 completed Prescrib ed Elsewher e: No Locat ion: [facility] odify By: rianna flores DateTime : 01/27/20 [...] Prescrib ed Elsewher e: Yes Loca tion: [facility] odify By: [email or web address] trick En counter DateTime : 07/15/20 13 09:45:00 AM Not Available Not Available Not Available Provera 10 mg tablet take 1 tablet by oral route every day 01/12 completed Prescrib ed Elsewher e: No Locat ion: [place] [facility] odify By: leandra E ncounter DateTime : 01/04/20 15 06:00:00 [...] Prescrib ed Elsewher e: Yes Loca tion: [place] [facility] odify By: ángel Bacon er DateTime : 07/15/20 13 09:45:00 AM Not Available Not Available Not Available Raoul-C DHA 35 mg-1 mg-200 mg capsule take 1 capsule by oral route every day 01/03 completed Prescrib ed Elsewher e: No Locat ion: [place] [facility] odify By: [email or web address] trick En counter DateTime : 04/30/20 14 02:15:00 PM Not Available Not Available Not Available SAVINGS COUNSELOR-PNV-DH A 28 mg iron-1 mg-200 mg capsule take 1 capsule by oral route every day 01/12 completed Prescrib ed Elsewher e: No Locat ion: [place] [facility] odify By: leanrda E ncounter DateTime : 01/04/20 15 06:00:00 [...] and Address Organization Details Last Updated DateTime 06/19/2024 019705.2 0695 g 38.2 kg/m2 167.01 cm 122 mm[Hg] 86 mm[Hg] Marian Valdez [facility] 4 16:06:28 Date Recorded Body height Body mass index (BMI) Body weight Systolic blood pressure Diastolic blood pressure Provider Name and Address Organization Details Last Updated DateTime 06/24/2024 167.01 cm 38.4 kg/m2 251003.7 9932 g 129 mm[Hg] 84 mm[Hg] Marian Valdez [facility] 4 09:31:01 Date Recorded Body height Body mass index (BMI) Body weight Systolic blood pressure Diastolic blood pressure Provider Name and Address Organization Details Last Updated DateTime 07/01/2024 167.01 cm 38.4 kg/m2 992634.8 g 129 mm[Hg] 91 mm[Hg] [facility] 4 14:17:54 Date Recorded Body weight Body mass index (BMI) Body height Systolic blood pressure Diastolic blood pressure Provider Name and Address Organization Details Last Updated DateTime 07/08/2024 835063.5 3828 g 39.7 kg/m2 167.01 cm 135 mm[Hg] 89 mm[Hg] Mariankalyan Valdez [facility] 4 18:06:56 Social History Question Answer Notes LastModified by Organizat ion Details LastModified Time Tobacco Smoking Status Current Some Day [facility] 12/12/2021 11:03:45 What Is Your Level Of Alcohol Consumption? None [email or web address] Information not available 04/22/2024 If You Are , What Was Your Level Of Alcohol Consumption Prior To ? Occasional [email or web address] Information not available 04/22/2024 Are You Blind Or Do You Have Difficulty Seeing? No Information not available 12/12/2021 What Is Your Level Of Caffeine Consumption? Occasional Information not available 12/12/2021 In The 14 Days Before Symptom Onset, Have You Had Close Contact With A Laboratory-confir med COVID-19 While That Case Was Ill? No [email or web address] Information not available 04/22/2024 In The 14 Days Before Symptom Onset, Have You Had Close Contact With A Person Who Is Under Investigation For COVID-19 While That Person Was Ill? No [email or web address] Information not available 04/22/2024 Have You Been To An Area Known To Be High Risk For COVID-19? No [email or web address] Information not available 04/22/2024 Are You Deaf Or Do You Have Serious Difficulty Hearing? No Information not available 12/12/2021 What Type Of Diet Are You Following? REGULAR Information not available 12/12/2021 What Is The Highest Grade Or Level Of School You Have Completed Or The Highest Degree You Have Received? 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 No [email or web address] Information not available 04/22/2024 Do You Use Protection During Sex? No [email or web address] Information not available 04/22/2024 Do You Use Your Seat Belt Or Car Seat Routinely? Yes Information not available 12/12/2021 Do You Have Smoke And Carbon Monoxide Detectors In Your Home? Yes Information not available 12/12/2021 How Much Tobacco Do You Smoke? No Information not available 04/22/2024 Do You Feel Stressed (tense, Restless, Nervous, Or Anxious, Or Unable To Sleep At Night)? [id number] Information not available 12/12/2021 Do You Use Any Illicit Or Recreational Drugs? No Information not available 12/12/2021 Do You Use Sunscreen Routinely? Yes Information not available 12/12/2021 Has Tobacco Cessation Counseling Been Provided? Yes [email or web address] Information not available 04/22/2024 On What Date Was Tobacco Cessation Counseling Provided? 07/01/2024 [email or web address] Information not available 07/01/2024 Have You Used IV Drugs? No [email or web address] Information not available 04/22/2024 Do You Or Have You Ever Used Any Other Forms Of Tobacco Or Nicotine? 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 Medical History Condition Response Allergies (Food, seasonal, environmental ) N Other N Drug/Latex Allergies/Reactions N Blood Transfusion N Breast Cancer N Dermatologic Disorders N Lung Disease N Defects or Inherited Disease N Breast Problem N Gestational Diabetes N Hematologic disorders N Anesthesia Complications N History of STI N Deep Vein Thrombosis N Polycystic ovary syndrome N Anxiety Disorder Y Autoimmune disease N Arthritis N Polyps N Infertility N Acid Reflux (GERD) Y History of abnormal pap N Cancer N Varicosities N Stroke N Neurologic/Epilepsy N Endometriosis N High Cholesterol N Fibromyalgia N Headaches N Kidney Disease N Heart Problems N Thyroid Problems N Kidney or Bladder Problems N GI Problems N Eating Disorder N Anemia N Art (IVF or FET) N Psychiatric Illness N Ovarian Cancer N Diabetes N Pulmonary (TB, Asthma) N Hepatitis/Liver Disease N No Past Medical History N Eczema N Urinary Tract Infection N Abuse/Domestic Violence N Asthma N Trauma/Violence N Depression/ depression Y Heart Disease N Pre-Eclampsia N Hypertension N Osteoporosis N Thrombophilias N Gynecological History Statement/Question Response Abnormal Pap [...] Diagnosis/Indication Diagnosis SNOMED-CT Code Diagnosis ICD10 Code [id number] Chelsie Barrera [facility] [address] [address] 05/27/2020 11:15:48 05/27/2020 15:43:48 Gynecologic examination 69200866 Z01.419 Disorder of breast 52658 008 N64.9 [id number] Chelsie Barrera [facility] [address],[place] [address] 12/12/2021 10:34:47 12/12/2021 11:59:57 Gynecologic examination 21662261 Z01.419 Multiple skin tags 99248 7009 L91.8 D22.9 Contracept ion care management 253835895 Z30.9 [id number] Chelsie Barrera [facility] [address] [place] [address] 07/13/2022 13:34:04 07/13/2022 14:58:02 Screening for malignant neoplasm of cervix 907397765 Z12.4 Contracept ion care management 351185407 Z30.9 [id number] Radha Carballo [facility] [address] [place] [address] 04/22/2024 11:59:21 04/22/2024 14:05:36 Gestation period, 27 weeks 26049669 Z3A.27 Venereal d isease screening 381926727 Z11.3 Routine an tenatal care 061257860 Z34.90 [id number] Radha Carballo [facility] [address],[place] [address] 05/04/2024 11:01:38 05/04/2024 11:51:07 Gestation period, 29 weeks 27584578 Z3A.29 [id number] Jamee Rodriguez [place] [address],[place] [address] 05/04/2024 12:03:38 05/04/2024 12:29:23 heart deceleration 409218421 O36.8399 [id number] Kerrie Wood [place] [address],[place] [address] 05/04/2024 12:15:48 05/04/2024 17:20:59 Nonreassuring status 709857141 O36.[id number] [facility] [address],[place] [address] 05/18/2024 17:06:31 05/18/2024 18:06:32 Medical examination for suspected condition 465085256 Z03.74 Z3A.31 [id number] Radha Carballo CNM [place] [address],[place] [address] 05/20/2024 11:01:33 05/20/2024 12:41:56 Gestation period, 31 weeks 91209222 Z3A.31 [id number] Juni Turcios MD [place] [address],[place] [address] 06/01/2024 14:45:41 06/01/2024 15:57:26 Routine care 544115275 Z34.[id number] [facility] [address],[place] [address] 06/19/2024 15:20:57 06/19/2024 16:27:38 Dilatation of renal pelvis 950539367 O36.8999 Z3A.35 [id number] Radha Carballo CNM [place] [address],[place] [address] 06/19/2024 15:21:10 06/19/2024 16:27:17 Gestation period, 35 weeks 81136327 Z3A.35 screening 2437 04881 Z36.85 [id number] [facility] [address] [place] [address] 06/24/2024 09:21:04 06/24/2024 10:04:18 Gestation period, 36 weeks 10321175 Z3A.36 [id number] [facility] [address] [place] [address] 07/01/2024 13:48:22 07/01/2024 16:28:18 Routine care 786659390 Z34.90 [id number] [facility] [address],[place] [address] 07/08/2024 17:47:42 07/09/2024 11:57:03 Gestation period, 38 weeks 92632961 Z3A.38 Health Concerns Section Related Observation LastModified by Organization Detai ls LastModified Time None Recorded Concern Status LastModified by Organization Details LastModified Time None Recorded Advance Directives Directive None Recorded Payers Encounter Date Sequence Insurance Name Policy Number Policy Forbes Covered Member ID Forbes Member ID Guarantor Name 06/19/[address] [facility] ON OR AFTER 01/26/21 (MEDICAID REPLACEMENT - HMO) Yuli Mercado [id number] Yuli Mercado 06/19/[address] [facility] ON OR AFTER 01/26/21 (MEDICAID REPLACEMENT - HMO) Yuli Mercado [id number] Yuli Mercado 06/24/[address] [facility] ON OR AFTER 01/26/21 (MEDICAID REPLACEMENT - HMO) Yuli Mercado [id number] Yuli Mercado 07/01/[address] [facility] ON OR AFTER 01/26/21 (MEDICAID REPLACEMENT - HMO) Yuli Mercado [id number] Yuli Mercado 07/08/[address] [facility] ON OR AFTER 01/26/21 (MEDICAID REPLACEMENT - HMO) Yuli Mercado [id number] Yuli Mercado OBGyn Episode Ob Episode Information Episode Created Date Number of Fetuses Patient Bloodtype Patient rh Status Prepregnancy Weight lbs Domestic Partner Domestic Partner Phone Father Name Pedal Assembler Status 12/13/19 22 1 CLOSED Fetus Data First Name Last Name Admitted to NICU Weight (g) Sex Living Outcome Pediatric Complications Fetus ID Race Codes Race Delivery Type , Spontane ous [id number] David Calculation DAVID Calculation Method Initial David Date Initial Exam Date Initial Exam Provider Initial Ultrasound Date Last Menstrual Period Date Ultra Sound Weeks Gestation Conception by IVF Embryo Age at Transfer Date of Transfer 0 Eighteen To Twenty Week David Update Ultra Sound Date Fundal Height At Umbil Quickening Date Ultra Sound Latest Weeks Gestation Final David Confirmed By Final David Confirmed Date Final David Date Ultra Sound Latest Days Gestation 0 0 Menstrual History Last Menstrual Date Menses Monthly On Bcp Conception Prior Menses Frequency Hcg Plus Date Menarche Onset Age Delivery Information Delivery Date Delivery Type Labor Anesthesia Weeks Gestation Incision Type Labor Labor Length Hrs Delivered By Post Complications Tubal Sterilization Discharge Date Comments 8 Discharge Information Feeding Method Contraceptive Method Maternal HG B and HCT Levels Ob Episode Information Episode Created Date Number of Fetuses Patient Bloodtype Patient rh Status Prepregnancy Weight lbs Domestic Partner Domestic Partner Phone Father Name Pedal Assembler Status 12/13/19 22 1 CLOSED Fetus Data First Name Last Name Admitted to NICU Weight (g) Sex Living Outcome Pediatric Complications Fetus ID Race Codes Race Delivery Type , Spontane ous [id number] David Calculation DAVID Calculation Method Initial David Date Initial Exam Date Initial Exam Provider Initial Ultrasound Date Last Menstrual Period Date Ultra Sound Weeks Gestation Conception by IVF Embryo Age at Transfer Date of Transfer 0 Eighteen To Twenty Week David Update Ultra Sound Date Fundal Height At Umbil Quickening Date Ultra Sound Latest Weeks Gestation Final David Confirmed By Final David Confirmed Date Final David Date Ultra Sound Latest Days Gestation 0 0 Menstrual History Last Menstrual Date Menses Monthly On Bcp Conception Prior Menses Frequency Hcg Plus Date Menarche Onset Age Delivery Information Delivery Date Delivery Type Labor Anesthesia Weeks Gestation Incision Type Labor Labor Length Hrs Delivered By Post Complications Tubal Sterilization Discharge Date Comments 3 Discharge Information Feeding Method Contraceptive Method Maternal HG B and HCT Levels Ob Episode Information Episode Created Date Number of Fetuses Patient Bloodtype Patient rh Status Prepregnancy Weight lbs Domestic Partner Domestic Partner Phone Father Name Pedal Assembler Status 12/13/19 22 1 CLOSED Fetus Data First Name Last Name Admitted to NICU Weight (g) Sex Living Outcome Pediatric Complications Fetus ID Race Codes Race Delivery Type , Spontane ous [id number] David Calculation DAVID Calculation Method Initial David Date Initial Exam Date Initial Exam Provider Initial Ultrasound Date Last Menstrual Period Date Ultra Sound Weeks Gestation Conception by IVF Embryo Age at Transfer Date of Transfer 0 Eighteen To Twenty Week David Update Ultra Sound Date Fundal Height At Umbil Quickening Date Ultra Sound Latest Weeks Gestation Final David Confirmed By Final David Confirmed Date Final David Date Ultra Sound Latest Days Gestation 0 0 Menstrual History Last Menstrual Date Menses Monthly On Bcp Conception Prior Menses Frequency Hcg Plus Date Menarche Onset Age Delivery Information Delivery Date Delivery Type Labor Anesthesia Weeks Gestation Incision Type Labor Labor Length Hrs Delivered By Post Complications Tubal Sterilization Discharge Date Comments 5 Discharge Information Feeding Method Contraceptive Method Maternal HG B and HCT Levels Ob Episode Information Episode Created Date Number of Fetuses Patient Bloodtype Patient rh Status Prepregnancy Weight lbs Domestic Partner Domestic Partner Phone Father Name Pedal Assembler Status 12/13/19 22 1 CLOSED Fetus Data First Name Last Name Admitted to NICU Weight (g) Sex Living Outcome Pediatric Complications Fetus ID Race Codes Race Delivery Type , Spontane ous [id number] David Calculation DAVID Calculation Method Initial David Date Initial Exam Date Initial Exam Provider Initial Ultrasound Date Last Menstrual Period Date Ultra Sound Weeks Gestation Conception by IVF Embryo Age at Transfer Date of Transfer 0 Eighteen To Twenty Week David Update Ultra Sound Date Fundal Height At Umbil Quickening Date Ultra Sound Latest Weeks Gestation Final David Confirmed By Final David Confirmed Date Final David Date Ultra Sound Latest Days Gestation 0 0 Menstrual History Last Menstrual Date Menses Monthly On Bcp Conception Prior Menses Frequency Hcg Plus Date Menarche Onset Age Delivery Information Delivery Date Delivery Type Labor Anesthesia Weeks Gestation Incision Type Labor Labor Length Hrs Delivered By Post Complications Tubal Sterilization Discharge Date Comments 4 Discharge Information Feeding Method Contraceptive Method Maternal HG B and HCT Levels Ob Episode Information Episode Created Date Number of Fetuses Patient Bloodtype Patient rh Status Prepregnancy Weight lbs Domestic Partner Domestic Partner Phone Father Name Pedal Assembler Status 04/22/20 24 1 O Positive [place] OPEN Fetus Data First Name Last Name Admitted to NICU Weight (g) Sex Living Outcome Pediatric Complications Fetus ID Race Codes Race Delivery Type [id number] Problems Problem Notes Problem Name Start Date End Date Resolution Snomed Code Not e Rubella non-immune 488675001 M MR PP Past history of multiple miscarriages [id number] 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 Mixed anxiety and depressive disorder [id number] 4 EPDS score 15 David Calculation DAVID [...] Latest Days Gestation 02/20/20 24 19 0 Pre- Flowsheet Flowsheet Date 04/22/2024 Watkins Score Blood Edema Fundus Height Fundus Units Glucose Ketones Leukocytes Nitrite Labor Signs Protein Cervic Dilation Cervic Effacement Cervic Station neg none none trace Type Weight in lbs Pre/Post Dialysis Refused Weight 209.741700524313 BP Diastolic BP Location Tested BP Systolic BP Type 83 128 Fetus Heart Rate Present A 157 Present Fetus Movement A Yes Comments Patient states that is havin g heartburn, pain in rib area and some BH contractions. ok for tums, pepcid, begin routine prental care moved back from [place], reviewed office, precautions, +FM, GCT today f/u w eeks Flowsheet Date 05/04/2024 Watkins Score Blood Edema Fundus Height Fundus Units Glucose Ketones Leukocytes Nitrite Labor Signs Protein Cervic Dilation Cervic Effacement Cervic Station none Type Weight in lbs Pre/Post Dialysis Refused 213.845421216771 BP Diastolic BP Location Tested BP Systolic [...] Present Fetus Movement Comments Flowsheet Date 05/18/2024 Watkins Score Blood Edema Fundus Height Fundus [...] Type Weight in lbs Pre/Post Dialysis Refused 220.134561042654 BP Diastolic BP Location Tested BP Systolic BP Type 81 124 Fetus Heart Rate Present Fetus Movement A Yes Comments Patient states that is havin g some light cramping. reviewed US, discussed renal dilation plan rpt in 4 weeks, reviewed vaccines. planning classes at [place], discussed EIOL an option answered questions f/u 2 weeks Flowsheet Date 06/01/2024 Watkins Score Blood Edema Fundus Height Fundus Units Glucose Ketones Leukocytes Nitrite Labor Signs Protein Cervic Dilation Cervic Effacement Cervic Station 33 cm Type Weight in lbs Pre/Post Dialysis Refused 228.177693774718 BP Diastolic BP Location Tested BP Systolic [...] Type Weight in lbs Pre/Post Dialysis Refused 235.066652180237 BP Diastolic BP Location Tested BP Systolic [...] Type Weight in lbs Pre/Post Dialysis Refused 236.116101073326 BP Diastolic BP Location Tested BP Systolic [...] Weight in lbs Pre/Post Dialysis Refused Weight 236.699134033524 BP Diastolic BP Location Tested BP Systolic [...] Type Weight in lbs Pre/Post Dialysis Refused 244.233786159972 BP Diastolic BP Location Tested BP Systolic [...]
--- OUTSIDE RECORDS SUMMARY | 2024-07-18 06:53 | XMS_ITS | Encounter Summary ---
Author Organization [facility] Address [facility] [facility] [place] [address] Care Team Providers Care [employer] Name Role Phone Unavailable Primary Care Provider Unavailabl e Encounter Details Date Type Department Care Team (Latest Contact Info) Description 08/28/2019 1:15 PM INTERNAL MEDICINE PHYSICIAN - 08/28/2019 11:59 PM INTERNAL MEDICINE PHYSICIAN Hospital Encounter [facility]/ EVALUATION UNIT [address] [place] [address] Franky Galvan MD [address] [facility] [address] [place] [address] Discharge Disposition: Home or Self Care Social History Tobacco Use Types Packs/Day Years Used Date Smoking Tobacco: Never Assessed Sex and Gender Information Value Date Recorded Sex Assigned at Not on file Gender Identity Not on file Sexual Orientation Not on file documented as of this encounter Progress Notes * Tala Hanson, PhD - 08/28/2019 3:13 PM CST GENETICS CONSULTATION NOTE [facility] PATIENT: Jazmyn Mercado DATE OF : 1990 DATE SEEN: 08/28/2019 SEEN BY: Tala Hanson, PhD, MS, [facility] PATIENT PROFILE: Ms. Mercado is a , 28 year old. She was accompanied by [place]on (). A total of 60 minutes were spent with the patient. CURRENT : Ms. 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 RELEVANT FAMILY HISTORY: Family history is remarkable for: 1) Patient's partner with a balanced translocation: 46,XY,t(7;10)(q36.1;q21.2) 2) Partner's mother with reported recurrent loss -- miscarriage of spontaneously conceived twin and triplet pregnancies with partner's father, three healthy children through different FOB 3) Partner's brother with suspected heart defect -- hole in heart and on a lot of monitors as a kid -- secondary to motor vehicle accident There is no other reported family history of defects, neurodevelopmental disability, or recurrent loss. Full pedigree available in Media. 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 This was identified by karyotype as part of a workup for recurrent loss (RPL). The primary concern for the couple was the health of the patient's partner, who carries the translocation. We explained that in balanced carriers where all genetic material is present, we do not anticipate any health concerns outside of problems like RPL. We also discussed the cytogenetic possibilities for future pregnancies which include: ?? Normal chromosomes ?? Balanced translocation ?? Unbalanced translocation with derivative chromosome??7 (7q deletion, 10q duplication) ?? Unbalanced translocation with derivative chromosome??10 (10q deletion, 7q duplication) ?? Other chromosome abnormalities? Each of these were discussed, and possible features of associated deletions and duplications were briefly reviewed. Exact prognosis for each unbalanced translocation is difficult to determine becausethere is very limited data on how the specific duplications/deletions may interact with each other.However, the couple have an increased risk for loss based on specific analysis of the partner's translocation performed by Dr. Shelby Yu. Of recognized pregnancies, 47% are expected tomiscarry. This risk includes general background risk of approximately 20%. In addition, the chance that the couple will have a liveborn child with an unbalanced translocation is 1.5-2.5%. ?? Balanced translocations can be inherited or de matthew in an individual. The patient's partner reported that his mother miscarried two multiple pregnancies. It is possible that the family history of RPLis related to the balanced translocation seen in the patient. However, there are many factors that can contribute to miscarriage. Without more information, it is difficult to know how this history may relate to the partner's translocation. Testing is available for the partner's parents to determineif the translocation was inherited and a potential risk for other family members. ?? We discussed reproductive and testing options for the couple. Preimplantation genetic testing (PGT)as an option in future pregnancies through IVF, and the patient reported that she has done significant research on this topic. PGT may allow for the selection of chromosomally normal or balanced embryos for transfer. diagnostic testing is recommended for any achieved with an embryo selected via PGT. Chorionic villus sampling (CVS) and amniocentesis are available for diagnostic testing for any . The benefits, risks, and limitations of both options were discussed. We also discussed the options of using a sperm donor and adoption. We briefly discussed other screening and testing options, including noninvasive testing (NIPT). The patient reported that she and her partner are considering all options at this time. 2) We briefly discussed the partner's family history of a possible congenital heart defect (CHD) inhis brother. Recurrence risk for a CHD in any of the partner's future children is approximately 1-2% compared to general population risk of 0.5%; echocardiogram may be recommended in future pregnancies. Specific information about the defect and any potential surgeries or other treatments werenot available at the time of the session. If more information becomes available, we are happy to review it to provide a more specific risk assessment. PLAN: A letter summarizing information from our discussion will be sent to the patient and referring OB (see Letters). The patient has my contact information and was encouraged to call with any questions or concerns. Tala Hanson, PhD, MS, [facility] Certified Genetic Counselor [facility] Genetic Counseling Primary Care Nurse cc: Dr. 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
--- OUTSIDE RECORDS SUMMARY | 2024-07-18 06:54 | XMS_ITS | Continuity of Care Document ---
Author Organization [facility] Address [address] [place] [address] [address] Care Team Providers Care Aviation Project Manager Name Role Phone JUVENTINO DIGGS Primary Care Provider Assessment No assessment recorded. Plan of Treatment Reminders Order Date Submit Date Provider Last Modified By Organization Details Last Modified Time Details Appointments None record ed. Lab None record ed. Referral None record ed. Procedures None record ed. Surgeries None record ed. Imaging US, obstet nia, follow -up 024 06/19/20 24 [email or web address] [address], [address], [place], [address], 21:15:15 Medication Orders None record ed. Patient TargetsNo targets recorded. Patient InstructionsNo instructions recorded. Reason for Referral None Reported. Results Created Date Observation Date Name Description Value Unit Range Abnormal Flag Note LastModifiedBy Organization Detail LastModifiedTime 05/04/2005/04/2024 non-s tress test No observ ation record ed. [email or web address] [facility] [address], [place], [address], 05/04/2024 12:19:11 05/04/20 24 05/04/2024 US, obste tric, follo w-up No observ ation record ed. [email or web address] [address], [place], [address], 05/04/2024 22:27:21 05/04/20 24 05/04/2024 US, obste tric, bioph ysica l profi le No observ ation record ed. [email or web address] [address], [place], [address], 05/04/2024 17:18:32 05/18/20 24 05/18/2024 US, obste tric, follo w-up No observ ation record ed. [facility] [address], [place], [address], 05/18/2024 18:12:58 05/18/2005/18/2024 US, obste tric, follo w-up No observ ation record ed. [address], [place], [address], 05/20/2024 18:31:50 06/19/20 24 06/19/2024 US, obste tric, follo w-up No observ ation record ed. [email or web address] [address], [place], [address], 06/19/2024 20:46:58 06/19/2006/19/2024 US, obste tric, follo w-up No observ ation record ed. [facility] [address], [place], [address], 06/19/2024 17:04:08 Result Notes None recorded. Problems Name Problem SNOMED Code Status Onset Date Resolution Date Notes Provider Name and Address Organization Details Recorded Time Pregnanc y test negative 733435938 Completed 201412/08/2021 Negative Pregnanc y Test;Pra ctice ID: 0001 Jamee Cruz [facility] 2 11:30:32 Amenorrh ea 40079471 Completed 201412/08/2021 AMENORRH EA;Pract ice ID: 0001 [facility] 11:30:31 Routine antenata l care Completed 201412/08/2021 Supervis ion of other normal pregnanc y;Practi ce ID: 0001 Jamee snyder [facility] 2 11:30:31 Pregnanc y test positive 841588853 Completed 201412/08/2021 Positive Pregnanc y Test;Pra ctice ID: 0001 Jamee snyder [facility] 2 11:30:32 Uterine size for dates discrepa ncy [id number] Completed 201412/08/2021 UTERINE SIZE MARKO-ANTE PAR;Prac lovely ID: 0001 Jamee snyder [facility] 2 11:30:32 Threaten ed miscarri age 15734343 Completed 201412/08/2021 Threaten ed , antepart um;Pract ice ID: 0001 Jamee Cruz [facility] 2 11:30:32 Missed miscarri age 66877451 Completed 201412/08/2021 Missed ;Practic e ID: 0001 Jamee snyder [facility] 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 2 11:30:32 Pelvic and perineal pain 962143875 Completed 201812/08/2021 Pelvic and perineal pain;Pra ctice ID: 0001 Jamee snyder [facility] 2 11:30:32 Finding related to pregnanc y Completed 201812/08/2021 Recurren t pregnanc y loss;Pra ctice ID: 0001 Jamee snyder [facility] 2 11:30:32 Female infertil ity associat ed with anovulat ion [id number] Completed 201812/08/2021 Female infertil ity associat ed with anovulat ion;Prac lovely ID: 0001 Jamee Cruz [facility], [facility] 2 11:30:31 Surveill ance of contrace ption Completed 201812/08/2021 Encounte r for surveill ance of contrace ptives, unspecif ied;Prac lovely ID: 0001 Jamee Cruz [facility], [facility] 2 11:30:32 Venereal disease screenin g Completed 201312/08/2021 Screenin g examinat ion for venereal disease; Recorded Elsewher e: No Locat ion: [facility] S ource: EHR Griddle Cook bee: N Odil[place] ce ID: 0001 Ken lable Time: 02:15:00 PM Jamee Cruz [facility] 2 11:30:31 Complete Completed 201312/08/2021 Spontane ous , complete , without mention of complica tion;Rec orded Elsewher e: No Locat ion: [facility] S ource: EHR Griddle Cook bee: N [place] ce ID: 0001 Ken lable Time: 11:45:00 AM Jamee Cruz [facility] 2 11:30:32 Speciali zed medical examinat ion Completed 201312/08/2021 Other specifie d chlamydi al diseases ;Recorde d Elsewher e: No Locat ion: [facility] S ource: EHR Griddle Cook bee: N [place] ce ID: 0001 Ken lable Time: 02:15:00 PM Jamee Cruz [facility] 2 11:30:32 Adult health examinat ion Completed 201312/08/2021 ROUTINE MEDICAL EXAM;Rec orded Elsewher e: No [facility] E[facility] Griddle Cook bee: N [place] ce ID: 0001 Ken lable Time: 02:15:00 PM Jamee Cruz [facility], [facility] 2 11:30:32 Speciali zed medical examinat ion Completed 201312/08/2021 ROUTINE INSECT CONTROL INSPECTOR EXAMINAT ION;Ramone rded Elsewher e: No Locat ion: [facility] S ource: EHR Griddle Cook bee: N [place] ce ID: 0001 Ken lable Time: 02:15:00 PM Jamee Cruz [facility], [facility] 2 11:30:32 Oligomen orrhea [id number] Completed 201412/08/2021 Oligomen orrhea;R ecorded Elsewher e: No Locat ion: [facility] S ource: EHR Griddle Cook bee: N [place]il[place] ce ID: 0001 Ken lable Time: 06:00:00 PM Jamee Cruz [facility], [facility] 2 11:30:32 Screenin g for malignan t neoplasm of cervix Completed 201312/08/2021 Screenin g for malignan t neoplasm s of the cervix;R ecorded Elsewher e: No Locat ion: [facility] [place] [facility] ID: 0001 Ken lable Time: 02:15:00 PM Jamee Cruz [facility], [facility] 2 11:30:31 Pregnanc y 26593112 Active 2023 Marian Valdez null, [facility] 4 13:31:50 Mixed anxiety and depressi ve disorder 594305177 Active 4 EPDS score 15 Marian Valdez null, [facility] 4 13:32:54 Past pregnanc y history of multiple miscarri ages Active former partner had transloc ation Radha Carballo CNM [address], [place], [address], [place] [facility] 4 14:03:22 Rubella non-immu ne 053031852 Active MMR PP Jessica Rae null, [facility] 4 10:33:54 Rubella non-immu ne 946380453 Active MMR PP Jessica Rae null, [facility] 4 10:33:54 Problem Notes None recorded. Procedures Surgical History Date Name Laterality Status Provider Name and Address Organization Details Recorded Time 2 Date of Last Pap Smear completed Mariankalyan Valdez [facility] 04/22/2024 13:24:55 1 extraction of wisdom tooth completed Mariankalyan Valdez [facility] 04/22/2024 13:29:15 Imaging Results Imaging Date Name Status LastModified by Organiz ation Details LastModified Time 06/19/2024 US, obstetric, follow-up completed [facility] [address], [place], [address], 06/19/2024 17:04:08 Procedure Notes None recorded. Medical [...] e: No Locat ion: [facility] M odify By: kenneth angulo DateTime : 02/15/20 03:15:00 PM Not Available Not Available Not Available clomiphen e citrate 50 mg tablet take 1 Tablet by oral route every day for 5 days days 3-7 of cycle 01/30 completed Prescrib ed Elsewher e: No Locat ion: [facility] odify By: rianna flores DateTime : [...] Prescrib ed Elsewher e: Yes Loca tion: [facility] odify By: [email or web address] trick En counter DateTime : 07/15/20 13 09:45:00 AM Not Available Not Available Not Available Provera 10 mg tablet take 1 tablet by oral route every day 01/12 completed Prescrib ed Elsewher e: No Locat ion: [facility] odify By: leandra E ncohema DateTime : 01/04/20 15 06:00:00 PM Not [...] e: Yes Loca tion: [place] [facility] odify By: adminnew Encount er DateTime : 07/15/20 13 09:45:00 AM Not Available Not Available Not Available Raoul-C DHA 35 mg-1 mg-200 mg capsule take 1 capsule by oral route every day 01/03 completed Prescrib ed Elsewher e: No [facility] odify By: [email or web address] trick En counter DateTime : 04/30/20 14 02:15:00 PM Not Available Not Available Not Available COAT FINISHER-PNV-DH A 28 mg iron-1 mg-200 mg capsule take 1 capsule by oral route every day 01/12 completed Prescrib ed Elsewher e: No Locat ion: [facility] odify By: [email or web address] E ncounter DateTime : 01/04/20 15 06:00:00 [...] Address Organization Details Last Updated DateTime 06/19/2024 845480.2 0695 g 38.2 kg/m2 167.01 cm 122 mm[Hg] 86 mm[Hg] Marian Valdez [facility] 4 16:06:28 Social History Question Answer Notes LastModified by Organizat ion Details LastModified Time Tobacco Smoking Status Current Some Day Smoker Jamee snyder [facility] 12/12/2021 11:03:45 What Is Your Level Of Alcohol Consumption? None [email or web address] Information not available 04/22/2024 If You Are , What Was Your Level Of Alcohol Consumption Prior To ? Occasional [email or web address] Information not available 04/22/2024 Are You Blind Or Do You Have Difficulty Seeing? No Information not available 12/12/2021 What Is Your Level Of Caffeine Consumption? Occasional Information not available 12/12/2021 In The 14 Days Before Symptom Onset, Have You Had Close Contact With A Laboratory-confir med COVID-19 While That Case Was Ill? No [email or web address] Information not available 04/22/2024 In The 14 Days Before Symptom Onset, Have You Had Close Contact With A Person Who Is Under Investigation For COVID-19 While That Person Was Ill? No [email or web address] Information not available 04/22/2024 Have You Been To An Area Known To Be High Risk For COVID-19? No [email or web address] Information not available 04/22/2024 Are You Deaf Or Do You Have Serious Difficulty Hearing? No Information not available 12/12/2021 What Type Of Diet Are You Following? REGULAR Information not available 12/12/2021 What Is The Highest Grade Or Level Of School You Have Completed Or The Highest Degree You Have Received? 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 No [email or web address] Information not available 04/22/2024 Do You Use Protection During Sex? No [email or web address] Information not available 04/22/2024 Do You Use Your Seat Belt Or Car Seat Routinely? Yes Information not available 12/12/2021 Do You Have Smoke And Carbon Monoxide Detectors In Your Home? Yes Information not available 12/12/2021 How Much Tobacco Do You Smoke? No [email or web address] Information not available 04/22/2024 Do You Feel Stressed (tense, Restless, Nervous, Or Anxious, Or Unable To Sleep At Night)? [id number] Information not available 12/12/2021 Do You Use Any Illicit Or Recreational Drugs? No Information not available 12/12/2021 Do You Use Sunscreen Routinely? Yes Information not available 12/12/2021 Has Tobacco Cessation Counseling Been Provided? Yes [email or web address] Information not available 04/22/2024 On What Date Was Tobacco Cessation Counseling Provided? 07/01/2024 [email or web address] Information not available 07/01/2024 Have You Used IV Drugs? No [email or web address] Information not available 04/22/2024 Do You Or Have You Ever Used Any Other Forms Of Tobacco Or Nicotine? Yes [email or web address] Information not available 04/22/2024 Sex: Unknown Functional [...] (Food, seasonal, environmental ) N Other N Breast Cancer N Drug/Latex Allergies/Reactions N Blood Transfusion N Dermatologic Disorders N Lung Disease N Defects or Inherited Disease N Breast Problem N Gestational Diabetes N Hematologic disorders N Anesthesia Complications N History of STI N Deep Vein Thrombosis N Polycystic ovary syndrome N Anxiety Disorder Y Autoimmune disease N Arthritis N Infertility N Polyps N Acid Reflux (GERD) Y History of abnormal pap N Cancer N Stroke N Varicosities N Neurologic/Epilepsy N Endometriosis N High Cholesterol N Headaches N Fibromyalgia N Kidney Disease N Heart Problems N Kidney or Bladder Problems N Thyroid Problems N GI Problems N Eating Disorder [...] Diagnosis/Indication Diagnosis SNOMED-CT Code Diagnosis ICD10 Code [id number] Radha Carballo [facility] [address],[place] [address] 05/20/2024 11:01:33 05/20/2024 12:41:56 Gestation period, 31 weeks 94808325 Z3A.31 [id number] Juni Turcios MD [facility] [address],[place] [address] 06/01/2024 14:45:41 06/01/2024 15:57:26 Routine care 328397814 Z34.80 [id number] [facility] [address],[place] [address] 06/19/2024 15:20:57 06/19/2024 16:27:38 Dilatation of renal pelvis 737087805 O36.8999 Z3A.35 [id number] Radha Carballo [facility] [address],[place] [address] 06/19/2024 15:21:10 06/19/2024 16:27:17 Gestation period, 35 weeks 29823520 Z3A.35 screening 2437 46765 Z36.85 Health Concerns Section Related Observation LastModified by Organization Detai ls LastModified Time None Recorded Concern Status LastModified by Organization Details LastModified Time None Recorded Payers Encounter Date Sequence Insurance Name Policy Number Policy Forbes Covered Member ID Forbes Member ID Guarantor Name 06/19/2024 1 [facility] ON OR AFTER 01/26/21 (MEDICAID REPLACEMENT - HMO) Yuli Mercado [id number] Yuli Mercado OBGyn Episode Ob Episode Information Episode Created Date Number of Fetuses Patient Bloodtype Patient rh Status Prepregnancy Weight lbs Domestic Partner Domestic Partner Phone Father Name 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 Status 04/22/20 24 1 O Positive [place] OPEN Fetus Data First Name Last Name Admitted to NICU Weight (g) Sex Living Outcome Pediatric Complications Fetus ID Race Codes Race Delivery Type [id number] Problems Problem Notes Problem Name Start Date End Date Resolution Snomed Code Not e Rubella non-immune 620141604 M MR BHATTI Past history of multiple miscarriages 6132673527 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 Mixed anxiety and depressive disorder 355689664 4 EPDS score 15 David Calculation DAVID Calculation Method Initial David Date Initial Exam Date Initial Exam Provider Initial Ultrasound Date Last Menstrual Period Date Ultra Sound Weeks Gestation Conception by IVF Embryo Age at Transfer Date of Transfer 07/18/2012/12/19 26 12/12/2023 10/12/2023 9 Eighteen To Twenty [...] Weight in lbs Pre/Post Dialysis Refused Weight 209.036844413973 BP Diastolic BP Location Tested BP Systolic BP Type 83 128 Fetus Heart Rate Present A 157 Present Fetus Movement A Yes Comments Patient states that is havin g heartburn, pain in rib area and some BH contractions. ok for tums, pepcid, begin routine prental care moved back from [place], reviewed office, precautions, +FM, GCT today f/u w eeks Flowsheet Date 05/04/2024 Watkins Score Blood Edema Fundus Height Fundus Units Glucose Ketones Leukocytes Nitrite Labor Signs Protein Cervic Dilation Cervic Effacement Cervic Station none Type Weight in lbs Pre/Post Dialysis Refused 213.311959184937 BP Diastolic BP Location Tested BP Systolic [...] Type Weight in lbs Pre/Post Dialysis Refused 220.119001255338 BP Diastolic BP Location Tested BP Systolic BP Type 81 124 Fetus Heart Rate Present Fetus Movement A Yes Comments Patient states that is havin g some light cramping. reviewed US, discussed renal dilation plan rpt in 4 weeks, reviewed vaccines. planning classes at [place], discussed EIOL an option answered questions f/u 2 weeks Flowsheet Date 06/01/2024 Watkins Score Blood Edema Fundus Height Fundus Units Glucose Ketones Leukocytes Nitrite Labor Signs Protein Cervic Dilation Cervic Effacement Cervic Station 33 cm Type Weight in lbs Pre/Post Dialysis Refused 228.491397483556 BP Diastolic BP Location Tested BP Systolic [...] Type Weight in lbs Pre/Post Dialysis Refused 235.349598010532 BP Diastolic BP Location Tested BP Systolic [...] Type Weight in lbs Pre/Post Dialysis Refused 236.107728776732 BP Diastolic BP Location Tested BP Systolic [...] Weight in lbs Pre/Post Dialysis Refused Weight 236.615476530172 BP Diastolic BP Location Tested BP Systolic [...] Type Weight in lbs Pre/Post Dialysis Refused 244.602279950651 BP Diastolic BP Location Tested BP Systolic [...]
--- OUTSIDE RECORDS SUMMARY | 2024-07-18 06:54 | XMS_ITS | Continuity of Care Document ---
Author Organization [facility] [place] Address [address] [place] [address] Care Team Providers [employer] Teacher Name Role Phone JUVENTINO DIGGS Primary Care Provider [phone] Assessment Encounter Date Assessment Date Assessment LastModified by Organization Details LastModified Time 06/19/2024 06/19/2024 Patient is _35__weeks . Discussed plan. Not available 06/19/2024 16:22:30 Plan of Treatment Reminders Order Date Submit Date Provider Last Modified By Organization Details Last Modified Time Details Appointments None recorded. Lab streptococc us group B, culture, unspecified specimen 2023 024 [facility] (Lab), [address], [place], [address], 4 16:40:18 Referral None recorded. Procedures None recorded. Surgeries None recorded. Imaging None recorded. Medication Orders None recorded. Patient TargetsNo targets recorded. Patient InstructionsNo instructions recorded. Reason for Referral None Reported. Results Created Date Observation Date Name Description Value Unit Range Abnormal Flag Note LastModifiedBy Organization Detail LastModifiedTime 05/04/2005/04/2024 non-s tress test No observ ation record ed. [email or web address] [place] [address], [place], [address], 05/04/2024 12:19:11 05/04/20 24 05/04/2024 US, obste tric, follo w-up No observ ation record ed. [email or web address] [address] [address], [place], [address], 05/04/2024 22:27:21 05/04/2005/04/2024 US, obste tric, bioph ysica l profi le No observ ation record ed. [email or web address] [place] [address], [place], [address], 05/04/2024 17:18:32 05/18/2005/18/2024 US, obste tric, follo w-up No observ ation record ed. [facility] [address], [place], [address], 05/18/2024 18:12:58 05/18/2005/18/2024 US, obste tric, follo w-up No observ ation record ed. [email or web address] [address], [place], [address], 05/20/2024 18:31:50 06/19/20 24 06/19/2024 US, obste tric, follo w-up No observ ation record ed. [email or web address] [address], [place], [address], 06/19/2024 20:46:58 06/19/20 24 06/19/2024 US, obste tric, follo w-up No observ ation record ed. [facility] [address], [place], [address], 06/19/2024 17:04:08 Result Notes None recorded. Problems Name Problem SNOMED Code Status Onset Date Resolution Date Notes Provider Name and Address Organization Details Recorded Time Pregnanc y test negative 481209416 Completed 201412/08/2021 Negative Pregnanc y Test;Pra ctice ID: 0001 [facility]amee Cruz [facility] 11:30:32 Amenorrh ea 58179972 Completed 201412/08/2021 AMENORRH EA;Pract ice ID: 0001 Jamee snyder [facility] 2 11:30:31 Routine antenata l care Completed 201412/08/2021 Supervis ion of other normal pregnanc y;Practi ce ID: 0001 Jamee snyder [facility] 2 11:30:31 Pregnanc y test positive 124907920 Completed 201412/08/2021 Positive Pregnanc y Test;Pra ctice ID: 0001 [facility] 11:30:32 Uterine size for dates discrepa ncy 874534576 Completed 201412/08/2021 UTERINE SIZE MARKO-ANTE PAR;Prac lovely ID: 0001 [facility] 2 11:30:32 Threaten ed miscarri age 87382668 Completed 201412/08/2021 Threaten ed , antepart um;Pract ice ID: 0001 Jamee snyder [facility] 2 11:30:32 Missed miscarri age 91576500 Completed 201412/08/2021 Missed ;Practic e ID: 0001 Jamee snyder [facility] 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 2 11:30:32 Pelvic and perineal pain 677412749 Completed 201812/08/2021 Pelvic and perineal pain;Pra ctice ID: 0001 Jamee snyder [facility] 2 11:30:32 Finding related to pregnanc y Completed 201812/08/2021 Recurren t pregnanc y loss;Pra ctice ID: 0001 Jamee snyder, [facility] 2 11:30:32 Female infertil ity associat ed with anovulat ion [id number] Completed 201812/08/2021 Female infertil ity associat ed with anovulat ion;Prac lovely ID: 0001 Jamee snyder, [facility] 2 11:30:31 Surveill ance of contrace ption Completed 201812/08/2021 Encounte r for surveill ance of contrace ptives, unspecif ied;Prac lovely ID: 0001 Jamee Cruz [facility], [facility] 2 11:30:32 Venereal disease screenin g Completed 201312/08/2021 Screenin g examinat ion for venereal disease; Recorded Elsewher e: No Locat ion: [facility] S ource: EHR Residential Nurse bee: N Practi ce ID: 0001 Ken lable Time: 02:15:00 PM Jamee Cruz [facility] 2 11:30:31 Complete Completed 201312/08/2021 Spontane ous , complete , without mention of complica tion;Rec orded Elsewher e: No Locat ion: [facility] S ource: EHR Residential Nurse bee: N Practi ce ID: 0001 Ken lable Time: 11:45:00 AM Jamee Cruz [facility] 2 11:30:32 Speciali zed medical examinat ion Completed 201312/08/2021 Other specifie d chlamydi al diseases ;Recorde d Elsewher e: No Locat ion: [facility] S ource: EHR Residential Nurse bee: N Practi ce ID: 0001 Ken lable Time: 02:15:00 PM Jamee Cruz [facility] 2 11:30:32 Adult health examinat ion Completed 201312/08/2021 ROUTINE MEDICAL EXAM;Rec orded Elsewher e: No Locat ion: [facility] S ource: EHR Residential Nurse bee: N Odilonti ce ID: 0001 Ken lable Time: 02:15:00 PM Jamee Cruz [facility], [facility] 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 2 11:30:32 Oligomen orrhea [id number] Completed 201412/08/2021 Oligomen orrhea;R ecorded Elsewher e: No Locat ion: [facility] S ource: EHR Residential Nurse bee: N Practi ce ID: 0001 Ken lable Time: 06:00:00 PM Jamee Cruz [facility], [facility] 2 11:30:32 Screenin g for malignan t neoplasm of cervix Completed 201312/08/2021 Screenin g for malignan t neoplasm s of the cervix;R ecorded Elsewher e: No Locat ion: [facility] S ource: EHR Residential Nurse bee: N Odilonti ce ID: 0001 Ken lable Time: 02:15:00 PM Jamee Cruz [facility], [facility] 2 11:30:31 Pregnanc y 54979043 Active 2023 Marian Valdez null, [facility] 4 13:31:50 Mixed anxiety and depressi ve disorder 076621658 Active 4 EPDS score 15 Marian Valdez [facility], [facility] 4 13:32:54 Past pregnanc y history of multiple miscarri ages Active former partner had transloc ation Radha Carballo, [place] [address], [place], [address], [facility] 4 14:03:22 Rubella non-immu ne 147101789 Active MMR PP Jessica Rae [facility], [facility] 4 10:33:54 Rubella non-immu ne 040049822 Active MMR PP Jessica Rae [facility], [facility] 4 10:33:54 Problem Notes None recorded. Procedures Surgical History Date Name Laterality Status Provider Name and Address Organization Details Recorded Time 2 Date of Last Pap Smear completed Marian Valdez [facility] 04/22/2024 13:24:55 1 extraction of wisdom tooth completed Marian Valdez [facility] 04/22/2024 13:29:15 Imaging Results None recorded. [...] e: No [facility] [place] [facility] [place] [facility] By: kenneth angulo DateTime : 02/15/20 15 03:15:00 PM Not Available Not Available Not Available clomiphen e citrate 50 mg tablet take 1 Tablet by oral route every day for 5 days days 3-7 of cycle 01/30 completed Prescrib ed Elsewher e: No Locat ion: [place] [facility] odify By: rianna flores DateTime : [...] Prescrib ed Elsewher e: Yes Loca tion: Naiamparo annamarie [facility] odify By: [email or web address] trick En counter DateTime : 07/15/20 13 09:45:00 AM Not Available Not Available Not Available Provera 10 mg tablet take 1 tablet by oral route every day 01/12 completed Prescrib ed Elsewher e: No Locat ion: Diane annamarie [facility] odify By: leandra sosa DateTime : 01/04/20 15 06:00:00 PM Not [...] Prescrib ed Elsewher e: Yes [facility] By: adminnew Encount er DateTime : 07/15/20 13 09:45:00 AM Not Available Not Available Not Available Raoul-C DHA 35 mg-1 mg-200 mg capsule take 1 capsule by oral route every day 01/03 completed Prescrib ed Elsewher e: No Locat ion: [facility] odify By: [email or web address] benyk En counter DateTime : 04/30/20 14 02:15:00 PM Not Available Not Available Not Available ORE FEEDER-PNV-DH A 28 mg iron-1 mg-200 mg capsule take 1 capsule by oral route every day 01/12 completed Prescrib ed Elsewher e: No Locat ion: [facility] odify By: leandra sosa DateTime : 01/04/20 15 06:00:00 PM Not [...] Address Organization Details Last Updated DateTime 06/19/2024 445838.2 0695 g 38.2 kg/m2 167.01 cm 122 mm[Hg] 86 mm[Hg] Marian Valdez [facility] 16:06:28 Social History Question Answer Notes LastModified by Organizat ion Details LastModified Time Tobacco Smoking Status Current Some Day Smoker Jamee Anthony snyder, [facility] 12/12/2021 11:03:45 What Is Your Level Of Alcohol Consumption? None [email or web address] Information not available 04/22/2024 If You Are , What Was Your Level Of Alcohol Consumption Prior To ? Occasional [email or web address] Information not available 04/22/2024 Are You Blind Or Do You Have Difficulty Seeing? No Information not available 12/12/2021 What Is Your Level Of Caffeine Consumption? Occasional Information not available 12/12/2021 In The 14 Days Before Symptom Onset, Have You Had Close Contact With A Laboratory-confir med COVID-19 While That Case Was Ill? No Information not available 04/22/2024 In The 14 Days Before Symptom Onset, Have You Had Close Contact With A Person Who Is Under Investigation For COVID-19 While That Person Was Ill? No [email or web address] Information not available 04/22/2024 Have You Been To An Area Known To Be High Risk For COVID-19? No [email or web address] Information not available 04/22/2024 Are You Deaf Or Do You Have Serious Difficulty Hearing? No Information not available 12/12/2021 What Type Of Diet Are You Following? REGULAR Information not available 12/12/2021 What Is The Highest Grade Or Level Of School You Have Completed Or The Highest Degree You Have Received? 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 No [email or web address] Information not available 04/22/2024 Do You Use Protection During Sex? No [email or web address] Information not available 04/22/2024 Do You Use Your Seat Belt Or Car Seat Routinely? Yes Information not available 12/12/2021 Do You Have Smoke And Carbon Monoxide Detectors In Your Home? Yes Information not available 12/12/2021 How Much Tobacco Do You Smoke? No [email or web address] Information not available 04/22/2024 Do You Feel Stressed (tense, Restless, Nervous, Or Anxious, Or Unable To Sleep At Night)? [id number] Information not available 12/12/2021 Do You Use Any Illicit Or Recreational Drugs? No Information not available 12/12/2021 Do You Use Sunscreen Routinely? Yes Information not available 12/12/2021 Has Tobacco Cessation Counseling Been Provided? Yes [email or web address] Information not available 04/22/2024 On What Date Was Tobacco Cessation Counseling Provided? 07/01/2024 [email or web address] Information not available 07/01/2024 Have You Used IV Drugs? No [email or web address] Information not available 04/22/2024 Do You Or [...] Diagnosis/Indication Diagnosis SNOMED-CT Code Diagnosis ICD10 Code [id number] [facility] [address] [address] 05/20/2024 11:01:33 05/20/2024 12:41:56 Gestation period, 31 weeks 23724548 Z3A.31 [id number] Juni Turcios MD [place] [address],[place] [address] 06/01/2024 14:45:41 06/01/2024 15:57:26 Routine care 574567568 Z34.80 [id number] Yolis Nazario [place] [address],[place] [address] 06/19/2024 15:20:57 06/19/2024 16:27:38 Dilatation of renal pelvis 461348515 O36.8999 Z3A.35 [id number] [facility] [address],[place] [address] 06/19/2024 15:21:10 06/19/2024 16:27:17 Gestation period, 35 weeks 90599854 Z3A.35 screening 2437 16758 Z36.85 Health Concerns Section Related Observation LastModified by Organization Detai ls LastModified Time None Recorded Concern Status LastModified by Organization Details LastModified Time None Recorded Payers Encounter Date Sequence Insurance Name Policy Number Policy Forbes Covered Member ID Forbes Member ID Guarantor Name 06/19/2024 1 [facility] ON OR AFTER 01/26/21 (MEDICAID REPLACEMENT - HMO) Yuli Mercado [id number] Yuli Mercado OBGyn Episode Ob Episode Information Episode Created Date Number of Fetuses Patient Bloodtype Patient rh Status Prepregnancy Weight lbs Domestic Partner Domestic Partner Phone Father Name Consultant Internship Status 04/22/20 24 1 O Positive [place] OPEN Fetus Data First Name Last Name Admitted to NICU Weight (g) Sex Living Outcome Pediatric Complications Fetus ID Race Codes Race Delivery Type [id number] Problems Problem Notes Problem Name Start Date End Date Resolution Snomed Code Not e Rubella non-immune 053873665 M MR BHATTI Past history of multiple miscarriages 0596999415 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 Mixed anxiety and depressive disorder 009946552 4 EPDS score 15 David Calculation DAVID [...] Weight in lbs Pre/Post Dialysis Refused Weight 209.342183983195 BP Diastolic BP Location Tested BP Systolic BP Type 83 128 Fetus Heart Rate Present A 157 Present Fetus Movement A Yes Comments Patient states that is havin g heartburn, pain in rib area and some BH contractions. ok for tums, pepcid, begin routine prental care moved back from [place], reviewed office, precautions, +FM, GCT today f/u w eeks Flowsheet Date 05/04/2024 Watkins Score Blood Edema Fundus Height Fundus Units Glucose Ketones Leukocytes Nitrite Labor Signs Protein Cervic Dilation Cervic Effacement Cervic Station none Type Weight in lbs Pre/Post Dialysis Refused 213.820039415477 BP Diastolic BP Location Tested BP Systolic [...] Type Weight in lbs Pre/Post Dialysis Refused 220.072302620359 BP Diastolic BP Location Tested BP Systolic BP Type 81 124 Fetus Heart Rate Present Fetus Movement A Yes Comments Patient states that is havin g some light cramping. reviewed US, discussed renal dilation plan rpt in 4 weeks, reviewed vaccines. planning classes at [facility], discussed EIOL an option answered questions f/u 2 weeks Flowsheet Date 06/01/2024 Watkins Score Blood Edema Fundus Height Fundus Units Glucose Ketones Leukocytes Nitrite Labor Signs Protein Cervic Dilation Cervic Effacement Cervic Station 33 cm Type Weight in lbs Pre/Post Dialysis Refused 228.226148315335 BP Diastolic BP Location Tested BP Systolic [...] Type Weight in lbs Pre/Post Dialysis Refused 235.982620902564 BP Diastolic BP Location Tested BP Systolic [...] Type Weight in lbs Pre/Post Dialysis Refused 236.180940193445 BP Diastolic BP Location Tested BP Systolic [...] Weight in lbs Pre/Post Dialysis Refused Weight 236.833947357617 BP Diastolic BP Location Tested BP Systolic [...] Type Weight in lbs Pre/Post Dialysis Refused 244.299295086482 BP Diastolic BP Location Tested BP Systolic [...]
--- OUTSIDE RECORDS SUMMARY | 2024-07-18 06:54 | XMS_ITS | Continuity of Care Document ---
Author Organization [facility] Address [address] [place] [address] Care Team Providers Care Sterile Instrument Technician Name Role Phone JUVENTINO DIGGS Primary Care Provider [phone] Assessment Encounter Date Assessment Date Assessment LastModified by Organization Details LastModified Time 07/01/2024 07/01/2024 Patient is _37__weeks . Discussed plan. Not available 07/01/2024 15:46:56 Plan of Treatment Reminders Order Date Submit [...] test No observ ation record ed. [email or web address] [facility] [address] [place], [address], 05/04/2024 12:19:11 05/04/2005/04/2024 US, obste tric, follo w-up No observ ation record ed. [email or web address] [facility] [address], [place], [address], 05/04/2024 22:27:21 05/04/20 24 05/04/2024 US, obste tric, bioph ysica l profi le No observ ation record ed. [email or web address] [facility] [address] [place], [address], 05/04/2024 17:18:32 05/18/2005/18/2024 US, obste tric, follo w-up No observ ation record ed. [facility] [address] [place], [address], 05/18/2024 18:12:58 05/18/20 24 05/18/2024 US, obste tric, follo w-up No observ ation record ed. [facility] [address], [place], [address], 05/20/2024 18:31:50 06/19/20 24 06/19/2024 US, obste tric, follo w-up No observ ation record ed. [email or web address] [facility] [address], [place], [address], 06/19/2024 20:46:58 06/19/2006/19/2024 US, obste tric, follo w-up No observ ation record ed. [facility] [address] [place], [address], 06/19/2024 17:04:08 Result Notes None recorded. Problems Name Problem SNOMED Code Status Onset Date Resolution Date Notes Provider Name and Address Organization Details Recorded Time Pregnanc y test negative 549941572 Completed 201412/08/2021 Negative Pregnanc y Test;Pra ctice ID: 0001 Jamee snyder [facility] 2 11:30:32 Amenorrh ea 91450183 Completed 201412/08/2021 AMENORRH EA;Pract ice ID: 0001 Jamee snyder [facility] 2 11:30:31 Routine antenata l care Completed 201412/08/2021 Supervis ion of other normal pregnanc y;Practi ce ID: 0001 Jamee snyder, [facility] 2 11:30:31 Pregnanc y test positive 057906828 Completed 201412/08/2021 Positive Pregnanc y Test;Pra ctice ID: 0001 Jamee snyder, [facility] 2 11:30:32 Uterine size for dates discrepa ncy 134738674 Completed 201412/08/2021 UTERINE SIZE MARKO-ANTE PAR;Prac lovely ID: 0001 [facility] 2 11:30:32 Threaten ed miscarri age 75971549 Completed 201412/08/2021 Threaten ed , antepart um;Pract ice ID: 0001 [facility] 2 11:30:32 Missed miscarri age 91740517 Completed 201412/08/2021 Missed ;Practic e ID: 0001 Jamee snyder, [facility] 2 11:30:[address] Concept Completed 201812/08/2021 Encntr for developmental psychologist exam (general ) (routine ) w/o abn findings ;Practic e ID: 0001 Jamee snyder, [facility] 2 11:30:32 Pelvic and perineal pain 834046474 Completed 201812/08/2021 Pelvic and perineal pain;Pra ctice ID: 0001 Jamee snyder, [facility] 2 11:30:32 Finding related to pregnanc y Completed 201812/08/2021 Recurren t pregnanc y loss;Pra ctice ID: 0001 Jamee snyder [facility] 2 11:30:32 Female infertil ity associat ed with anovulat ion [id number] Completed 201812/08/2021 Female infertil ity associat ed with anovulat ion;Prac lovely ID: 0001 Jamee Cruz [facility], [facility] 2 11:30:31 Surveill ance of contrace ption Completed 201812/08/2021 Encounte r for surveill ance of contrace ptives, unspecif ied;Prac lovely ID: 0001 Jamee Cruz [facility], [facility] 2 11:30:32 Venereal disease screenin g Completed 201312/08/2021 Screenin g examinat ion for venereal disease; Recorded Elsewher e: No Locat ion: [facility] S ource: [facility] [employer] Front Office Manager bee: N Odil[place] ce ID: 0001 Ken lable Time: 02:15:00 PM [facility] 2 11:30:31 Complete Completed 201312/08/2021 Spontane ous , complete , without mention of complica tion;Rec orded Elsewher e: No Locat ion: [facility] S ource: [facility] [employer] Office Manager bee: N [place]il[place] ce ID: 0001 Ken lable Time: 11:45:00 AM [facility] 2 11:30:32 Speciali zed medical examinat ion Completed 201312/08/2021 Other specifie d chlamydi al diseases ;Recorde d Elsewher e: No Locat ion: [facility] S ource: [facility] [employer] Front Office Manager bee: N Practi ce ID: 0001 Ken lable Time: 02:15:00 PM [facility] 2 11:30:32 Adult health examinat ion Completed 201312/08/2021 ROUTINE MEDICAL EXAM;Rec orded Elsewher e: No Locat ion: [facility] S ource: [facility] Front Office Manager bee: N [place]il[place] ce ID: 0001 Ken lable Time: 02:15:00 PM Jamee Cruz [facility], [facility] 2 11:30:32 Speciali zed medical examinat ion Completed 201312/08/2021 ROUTINE QUALITY CONTROLLER EXAMINAT ION;Ramone rded Elsewher e: No Locat ion: [facility] S ource: [facility] Front Office Manager bee: N [place]il[place] ce ID: 0001 Ken lable Time: 02:15:00 PM Jamee snyder, [facility] 2 11:30:32 Oligomen orrhea [id number] Completed 201412/08/2021 Oligomen orrhea;R ecorded Elsewher e: No Locat ion: [facility] S ource: [facility] [employer] Front Office Manager bee: N Odilont[place] ce ID: 0001 Ken lable Time: 06:00:00 PM Jamee Cruz [facility], [facility] 2 11:30:32 Screenin g for malignan t neoplasm of cervix Completed 201312/08/2021 Screenin g for malignan t neoplasm s of the cervix;R ecorded Elsewher e: No Locat ion: [facility] S ource: [facility] Front Office Manager bee: N Emilie ce ID: 0001 Ken lable Time: 02:15:00 PM Jamee Cruz [facility], [facility] 2 11:30:31 Pregnanc y 76769581 Active 2023 Marian Valdez [facility], [facility] 4 13:31:50 Mixed anxiety and depressi ve disorder 524669530 Active 4 EPDS score 15 Marian Valdez [facility], [facility] 4 13:32:54 Past pregnanc y history of multiple miscarri ages Active former partner had transloc ation Radha Carballo, [place] [address] [place], [address], [place] [facility] 4 14:03:22 Rubella non-immu ne 166728281 Active MMR PP Jessica snyder, [facility] 4 10:33:54 Rubella non-immu ne 107530242 Active MMR PP Jessica snyder, [facility] 4 10:33:54 Problem Notes None recorded. Procedures Surgical History Date Name Laterality Status Provider Name and Address Organization Details Recorded Time 2 Date of Last Pap Smear completed [facility] 04/22/2024 13:24:55 1 extraction of wisdom tooth completed [facility] 04/22/2024 13:29:15 Imaging Results None recorded. [...] Prescrib ed Elsewher e: No [facility] odify By: kenneth angulo DateTime : 02/15/20 15 03:15:00 PM Not Available Not Available Not Available clomiphen e citrate 50 mg tablet take 1 Tablet by oral route every day for 5 days days 3-7 of cycle 01/30 completed Prescrib ed Elsewher e: No [facility] odify By: rianna flores DateTime : [...] Prescrib ed Elsewher e: Yes [facility] By: [email or web address] trick En counter DateTime : 07/15/20 13 09:45:00 AM Not Available Not Available Not Available Provera 10 mg tablet take 1 tablet by oral route every day 01/12 completed Prescrib ed Elsewher e: No Locat ion: [facility] odify By: leandra sosa DateTime : 01/04/20 [...] Prescrib ed Elsewher e: Yes [facility] By: ángel Encount er DateTime : 07/15/20 13 09:45:00 AM Not Available Not Available Not Available Raoul-C DHA 35 mg-1 mg-200 mg capsule take 1 capsule by oral route every day 01/03 completed Prescrib ed Elsewher e: No [facility] By: [email or web address] trick En counter DateTime : 04/30/20 14 02:15:00 PM Not Available Not Available Not Available [employer] CUTTER-PNV-DH A 28 mg iron-1 mg-200 mg capsule take 1 capsule by oral route every day 01/12 completed Prescrib ed Elsewher e: No Locat ion: [facility] annamarie [facility] odify By: dmrose E ncounter DateTime : 01/04/20 15 06:00:00 PM Not Available Not Available Not Available Annovera 0.15 mg-0.013 mg/24 hr vaginal ring Insert ring vaginall y x 3wks, remove 1 wk ring free; then rinse & reinsert yearly vag ring. 04/22 completed Not Available Not Available Not Available Vitals Date Recorded Body height Body mass index (BMI) Body weight Systolic blood pressure Diastolic blood pressure Provider Name and Address Organization Details Last Updated DateTime 07/01/2024 167.01 cm 38.4 kg/m2 511490.8 g 129 mm[Hg] 91 mm[Hg] Marian Valdez [facility] 14:17:54 Social History Question Answer Notes LastModified by Organizat ion Details LastModified Time Tobacco Smoking Status Current Some Day Smoker [email or web address] 12/12/2021 11:03:45 What Is Your Level Of Alcohol Consumption? None Information not available 04/22/2024 If You Are , What Was Your Level Of Alcohol Consumption Prior To ? Occasional [email or web address] Information not available 04/22/2024 Are You Blind Or Do You Have Difficulty Seeing? No Information not available 12/12/2021 What Is Your Level Of Caffeine Consumption? Occasional Information not available 12/12/2021 In The 14 Days Before Symptom Onset, Have You Had Close Contact With A Laboratory-confir med COVID-19 While That Case Was Ill? No [email or web address] Information not available 04/22/2024 In The 14 Days Before Symptom Onset, Have You Had Close Contact With A Person Who Is Under Investigation For COVID-19 While That Person Was Ill? No [email or web address] Information not available 04/22/2024 Have You Been To An Area Known To Be High Risk For COVID-19? No [email or web address] Information not available 04/22/2024 Are You Deaf Or Do You Have Serious Difficulty Hearing? No Information not available 12/12/2021 What Type Of Diet Are You Following? REGULAR Information not available 12/12/2021 What Is The Highest Grade Or Level Of School You Have Completed Or The Highest Degree You Have Received? 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 No [email or web address] Information not available 04/22/2024 Do You Use Protection During Sex? No [email or web address] Information not available 04/22/2024 Do You Use Your Seat Belt Or Car Seat Routinely? Yes Information not available 12/12/2021 Do You Have Smoke And Carbon Monoxide Detectors In Your Home? Yes Information not available 12/12/2021 How Much Tobacco Do You Smoke? No [email or web address] Information not available 04/22/2024 Do You Feel Stressed (tense, Restless, Nervous, Or Anxious, Or Unable To Sleep At Night)? [id number] Information not available 12/12/2021 Do You Use Any Illicit Or Recreational Drugs? No Information not available 12/12/2021 Do You Use Sunscreen Routinely? Yes Information not available 12/12/2021 Has Tobacco Cessation Counseling Been Provided? Yes [email or web address] Information not available 04/22/2024 On What Date Was Tobacco Cessation Counseling Provided? 07/01/2024 [email or web address] Information not available 07/01/2024 Have You Used IV Drugs? No [email or web address] Information not available 04/22/2024 Do You Or Have You Ever Used Any Other Forms Of Tobacco Or Nicotine? Yes [email or web address] Information not available 04/22/2024 Sex: Unknown Functional [...] Diagnosis/Indication Diagnosis SNOMED-CT Code Diagnosis ICD10 Code [id number] Juni Turcios MD [facility] [address] [address] 06/01/2024 14:45:41 06/01/2024 15:57:26 Routine care 997851688 Z34.80 [id number] Yolis Nazario [facility] [address],[place] [address] 06/19/2024 15:20:57 06/19/2024 16:27:38 Dilatation of renal pelvis 388698636 O36.8999 Z3A.35 [id number] [facility] [address] [address] 06/19/2024 15:21:10 06/19/2024 16:27:17 Gestation period, 35 weeks 61050308 Z3A.35 screening 2437 24580 Z36.85 [id number] [facility] [address],[place] [address] 06/24/2024 09:21:04 06/24/2024 10:04:18 Gestation period, 36 weeks 75515532 Z3A.36 [id number] [facility] [address],[place] [address] 07/01/2024 13:48:22 07/01/2024 16:28:18 Routine care 999777668 Z34.90 Health Concerns Section Related Observation LastModified by Organization Detai ls LastModified Time None Recorded Concern Status LastModified by Organization Details LastModified Time None Recorded Payers Encounter Date Sequence Insurance Name Policy Number Policy Forbes Covered Member ID Forbes Member ID Guarantor Name 07/01/2024 1 [facility] ON OR AFTER 01/26/21 (MEDICAID REPLACEMENT - HMO) Yuli Rogelio [id number] Yuli Rogelio OBGyn Episode Ob Episode Information Episode Created Date Number of Fetuses Patient Bloodtype Patient rh Status Prepregnancy Weight lbs Domestic Partner Domestic Partner Phone Father Name Stroke Coordinator Status 04/22/20 24 1 O Positive [place] OPEN Fetus Data First Name Last Name Admitted to NICU Weight (g) Sex Living Outcome Pediatric Complications Fetus ID Race Codes Race Delivery Type [id number] Problems Problem Notes Problem Name Start Date End Date Resolution Snomed Code Not e Rubella non-immune [id number] M MR BHATTI Past history of multiple miscarriages 6613847684 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 Mixed anxiety and depressive disorder 817647408 4 EPDS score 15 David Calculation DAVID [...] Weight in lbs Pre/Post Dialysis Refused Weight 209.363233076895 BP Diastolic BP Location Tested BP Systolic BP Type 83 128 Fetus Heart Rate Present A 157 Present Fetus Movement A Yes Comments Patient states that is havin g heartburn, pain in rib area and some BH contractions. ok for tums, pepcid, begin routine prental care moved back from [place], reviewed office, precautions, +FM, GCT today f/u w eeks Flowsheet Date 05/04/2024 Watkins Score Blood Edema Fundus Height Fundus Units Glucose Ketones Leukocytes Nitrite Labor Signs Protein Cervic Dilation Cervic Effacement Cervic Station none Type Weight in lbs Pre/Post Dialysis Refused 213.776522575968 BP Diastolic BP Location Tested BP Systolic [...] Type Weight in lbs Pre/Post Dialysis Refused 220.493158370498 BP Diastolic BP Location Tested BP Systolic BP Type 81 124 Fetus Heart Rate Present Fetus Movement A Yes Comments Patient states that is havin g some light cramping. reviewed US, discussed renal dilation plan rpt in 4 weeks, reviewed vaccines. planning classes at [place], discussed EIOL an option answered questions f/u 2 weeks Flowsheet Date 06/01/2024 Watkins Score Blood Edema Fundus Height Fundus Units Glucose Ketones Leukocytes Nitrite Labor Signs Protein Cervic Dilation Cervic Effacement Cervic Station 33 cm Type Weight in lbs Pre/Post Dialysis Refused 228.948109379963 BP Diastolic BP Location Tested BP Systolic [...] Type Weight in lbs Pre/Post Dialysis Refused 235.897062326853 BP Diastolic BP Location Tested BP Systolic [...] Type Weight in lbs Pre/Post Dialysis Refused 236.327255640087 BP Diastolic BP Location Tested BP Systolic [...] Weight in lbs Pre/Post Dialysis Refused Weight 236.270969484456 BP Diastolic BP Location Tested BP Systolic [...] Type Weight in lbs Pre/Post Dialysis Refused 244.418926505421 BP Diastolic BP Location Tested BP Systolic [...]
--- OUTSIDE RECORDS SUMMARY | 2024-07-18 06:54 | XMS_ITS | Continuity of Care Document ---
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 Discussed plan. Not available 06/24/2024 10:01:08 Plan of Treatment Reminders Order Date Submit [...] test No observ ation record ed. [email or web address] [facility] [address], [place], [address], 05/04/2024 12:19:11 05/04/20 24 05/04/2024 US, obste tric, follo w-up No observ ation record ed. [email or web address] [address], [place], [address], 05/04/2024 22:27:21 05/04/20 24 05/04/2024 US, obste tric, bioph ysica l profi le No observ ation record ed. [email or web address] [facility] [address], [place], [address], 05/04/2024 17:18:32 05/18/2005/18/2024 US, obste tric, follo w-up No observ ation record ed. [facility] [address], [place], [address], 05/18/2024 18:12:58 05/18/20 24 05/18/2024 US, obste tric, follo w-up No observ ation record ed. [email or web address] [address], [place], [address], 05/20/2024 18:31:50 06/19/20 24 06/19/2024 US, obste tric, follo w-up No observ ation record ed. [email or web address] [address], [place], [address], 06/19/2024 20:46:58 06/19/2006/19/2024 US, obste tric, follo w-up No observ ation record ed. [facility] [address], [place], [address], 06/19/2024 17:04:08 Result Notes None recorded. Problems Name Problem SNOMED Code Status Onset Date Resolution Date Notes Provider Name and Address Organization Details Recorded Time Pregnanc y test negative 221193316 Completed 201412/08/2021 Negative Pregnanc y Test;Pra ctice ID: 0001 Jamee snyder [facility] 2 11:30:32 Amenorrh ea 10163541 Completed 201412/08/2021 AMENORRH EA;Pract ice ID: 0001 Jamee snyder [facility] 2 11:30:31 Routine antenata l care Completed 201412/08/2021 Supervis ion of other normal pregnanc y;Practi ce ID: 0001 Jamee snyder, [facility] 2 11:30:31 Pregnanc y test positive 899106585 Completed 201412/08/2021 Positive Pregnanc y Test;Pra ctice ID: 0001 Jamee snyder, [facility] 2 11:30:32 Uterine size for dates discrepa ncy 897628892 Completed 201412/08/2021 UTERINE SIZE MARKO-ANTE PAR;Prac lovely ID: 0001 [facility] 2 11:30:32 Threaten ed miscarri age 64833008 Completed 201412/08/2021 Threaten ed , antepart um;Pract ice ID: 0001 [facility] 2 11:30:32 Missed miscarri age 10129333 Completed 201412/08/2021 Missed ;Practic e ID: 0001 Jamee snyder, [facility] 2 11:30:[address] Concept Completed 201812/08/2021 Encntr for vp home health exam (general ) (routine ) w/o abn findings ;Practic e ID: 0001 Jamee snyder, [facility] 2 11:30:32 Pelvic and perineal pain 720216931 Completed 201812/08/2021 Pelvic and perineal pain;Pra ctice ID: 0001 Jamee snyder, [facility] 2 11:30:32 Finding related to pregnanc y Completed 201812/08/2021 Recurren t pregnanc y loss;Pra ctice ID: 0001 Jamee snyder [facility] 2 11:30:32 Female infertil ity associat ed with anovulat ion 418875731 Completed 201812/08/2021 Female infertil ity associat ed with anovulat ion;Prac lovely ID: 0001 Jamee Cruz [facility], [facility] 2 11:30:31 Surveill ance of contrace ption Completed 201812/08/2021 Encounte r for surveill ance of contrace ptives, unspecif ied;Prac lovely ID: 0001 Jamee Cruz [facility], [facility] 2 11:30:32 Venereal disease screenin g Completed 201312/08/2021 Screenin g examinat ion for venereal disease; Recorded Elsewher e: No Locat ion: [facility] S ource: EHR Production Aide bee: N Odilonti ce ID: 0001 Ken lable Time: 02:15:00 PM Jamee Cruz [facility] 2 11:30:31 Complete Completed 201312/08/2021 Spontane ous , complete , without mention of complica tion;Rec orded Elsewher e: No Locat ion: [facility] S ource: EHR Production Aide bee: N Odilonti ce ID: 0001 Ken lable Time: 11:45:00 AM Jamee Cruz [facility] 2 11:30:32 Speciali zed medical examinat ion Completed 201312/08/2021 Other specifie d chlamydi al diseases ;Recorde d Elsewher e: No Locat ion: [facility] S ource: EHR Production Aide bee: N Practi ce ID: 0001 Ken lable Time: 02:15:00 PM Jamee Cruz [facility] 2 11:30:32 Adult health examinat ion Completed 201312/08/2021 ROUTINE MEDICAL EXAM;Rec orded Elsewher e: No Locat ion: [facility] S ource: EHR Production Aide bee: N Odilonti ce ID: 0001 Ken lable Time: 02:15:00 PM Jamee Cruz [facility], [facility] 2 11:30:32 Speciali zed medical examinat ion Completed 201312/08/2021 ROUTINE HELP AID EXAMINAT ION;Ramone rded Elsewher e: No Locat ion: [facility] S ource: EHR Production Aide bee: N Odilonti ce ID: 0001 Ken lable Time: 02:15:00 PM Jamee snyder, [facility] 2 11:30:32 Oligomen orrhea 77284216 Completed 201412/08/2021 Oligomen orrhea;R ecorded Elsewher e: No Locat ion: [facility] S ource: EHR Production Aide bee: N Odilonti ce ID: 0001 Ken lable Time: 06:00:00 PM Jamee Cruz [facility], [facility] 2 11:30:32 Screenin g for malignan t neoplasm of cervix Completed 201312/08/2021 Screenin g for malignan t neoplasm s of the cervix;R ecorded Elsewher e: No Locat ion: [facility] S ource: EHR Production Aide bee: N Emilie ce ID: 0001 Ken lable Time: 02:15:00 PM Jamee Cruz [facility], [facility] 2 11:30:31 Pregnanc y 79325796 Active 2023 Marian Valdez [facility], [facility] 4 13:31:50 Mixed anxiety and depressi ve disorder 687142381 Active 4 EPDS score 15 Marian Valdez [facility], [facility] 4 13:32:54 Past pregnanc y history of multiple miscarri ages Active former partner had transloc ation Radha Carballo, [place] [address], [place], [address], [place] [facility] 4 14:03:22 Rubella non-immu ne 479821099 Active MMR PP Jessica snyder, [facility] 4 10:33:54 Rubella non-immu ne 917709775 Active MMR PP Jessica snyder, [facility] 4 10:33:54 Problem Notes None recorded. Procedures Surgical History Date Name Laterality Status Provider Name and Address Organization Details Recorded Time 2 Date of Last Pap Smear completed [facility] 04/22/2024 13:24:55 1 extraction of wisdom tooth completed [facility] 04/22/2024 13:29:15 Imaging Results [...] Prescrib ed Elsewher e: No [facility] odify By: kneneth angulo DateTime : 02/15/20 15 03:15:00 PM Not Available Not Available Not Available clomiphen e citrate 50 mg tablet take 1 Tablet by oral route every day for 5 days days 3-7 of cycle 01/30 completed Prescrib ed Elsewher e: No [facility] odify By: rianna flores DateTime : [...] Prescrib ed Elsewher e: Yes [facility] By: [email or web address] trick En counter DateTime : 07/15/20 13 09:45:00 AM Not Available Not Available Not Available Provera 10 mg tablet take 1 tablet by oral route every day 01/12 completed Prescrib ed Elsewher e: No [facility] By: leandra sosa DateTime : 01/04/20 [...] Prescrib ed Elsewher e: Yes [facility] By: ángel Encount er DateTime : 07/15/20 13 09:45:00 AM Not Available Not Available Not Available Raoul-C DHA 35 mg-1 mg-200 mg capsule take 1 capsule by oral route every day 01/03 completed Prescrib ed Elsewher e: No [facility] By: [email or web address] trick En counter DateTime : 04/30/20 14 02:15:00 PM Not Available Not Available Not Available ENVIRONMENTAL SAMPLER-PNV-DH A 28 mg iron-1 mg-200 mg capsule take 1 capsule by oral route every day 01/12 completed Prescrib ed Elsewher e: No Locat ion: [facility] annamarie [facility] odify By: dmrose E ncounter DateTime [...] Updated DateTime 06/24/2024 167.01 cm 38.4 kg/m2 326930.7 9932 g 129 mm[Hg] 84 mm[Hg] Marian Valdez [facility] 09:31:01 Social History Question Answer Notes LastModified by Organizat ion Details LastModified Time Tobacco Smoking Status Current Some Day Smoker Jamee Anthony snyder, [facility] 12/12/2021 11:03:45 What Is Your Level Of Alcohol Consumption? None [email or web address] Information not available 04/22/2024 If You Are , What Was Your Level Of Alcohol Consumption Prior To ? Occasional [email or web address] Information not available 04/22/2024 Are You Blind Or Do You Have Difficulty Seeing? No Information not available 12/12/2021 What Is Your Level Of Caffeine Consumption? Occasional Information not available 12/12/2021 In The 14 Days Before Symptom Onset, Have You Had Close Contact With A Laboratory-confir med COVID-19 While That Case Was Ill? No [email or web address] Information not available 04/22/2024 In The 14 Days Before Symptom Onset, Have You Had Close Contact With A Person Who Is Under Investigation For COVID-19 While That Person Was Ill? No [email or web address] Information not available 04/22/2024 Have You Been To An Area Known To Be High Risk For COVID-19? No [email or web address] Information not available 04/22/2024 Are You Deaf Or Do You Have Serious Difficulty Hearing? No Information not available 12/12/2021 What Type Of Diet Are You Following? REGULAR Information not available 12/12/2021 What Is The Highest Grade Or Level Of School You Have Completed Or The Highest Degree You Have Received? 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 No [email or web address] Information not available 04/22/2024 Do You Use Protection During Sex? No [email or web address] Information not available 04/22/2024 Do You Use Your Seat Belt Or Car Seat Routinely? Yes Information not available 12/12/2021 Do You Have Smoke And Carbon Monoxide Detectors In Your Home? Yes Information not available 12/12/2021 How Much Tobacco Do You Smoke? No [email or web address] Information not available 04/22/2024 Do You Feel Stressed (tense, Restless, Nervous, Or Anxious, Or Unable To Sleep At Night)? [id number] Information not available 12/12/2021 Do You Use Any Illicit Or Recreational Drugs? No Information not available 12/12/2021 Do You Use Sunscreen Routinely? Yes Information not available 12/12/2021 Has Tobacco Cessation Counseling Been Provided? Yes [email or web address] Information not available 04/22/2024 On What Date Was Tobacco Cessation Counseling Provided? 07/01/2024 [email or web address] Information not available 07/01/2024 Have You Used IV Drugs? No [email or web address] Information not available 04/22/2024 Do You Or Have You Ever Used Any Other Forms Of Tobacco Or Nicotine? Yes [email or web address] Information not available 04/22/2024 Sex: Unknown Functional [...] Diagnosis/Indication Diagnosis SNOMED-CT Code Diagnosis ICD10 Code [id number] Juni Turcios MD [facility] [address] [address] 06/01/2024 14:45:41 06/01/2024 15:57:26 Routine care [id number] Z34.80 [id number] Yolis Nazario [facility] [address],[place] [address] 06/19/2024 15:20:57 06/19/2024 16:27:38 Dilatation of renal pelvis 335739283 O36.8999 Z3A.35 [id number] [facility] [address],[place] [address] 06/19/2024 15:21:10 06/19/2024 16:27:17 Gestation period, 35 weeks 51889377 Z3A.35 screening 2437 17433 Z36.85 [id number] Radha Carballo [facility] [address],[place] [address] 06/24/2024 09:21:04 06/24/2024 10:04:18 Gestation period, 36 weeks 83209348 Z3A.36 Health Concerns Section Related Observation LastModified by Organization Detai ls LastModified Time None Recorded Concern Status LastModified by Organization Details LastModified Time None Recorded Payers Encounter Date Sequence Insurance Name Policy Number Policy Forbes Covered Member ID Forbes Member ID Guarantor Name 06/24/2024 1 [facility] ON OR AFTER 01/26/21 (MEDICAID REPLACEMENT - HMO) Yuli Mercado [id number] Yuli Mercado OBGyn Episode Ob Episode Information Episode Created Date Number of Fetuses Patient Bloodtype Patient rh Status Prepregnancy Weight lbs Domestic Partner Domestic Partner Phone Father Name Web Content Coordinator Status 04/22/20 24 1 O Positive [place] OPEN Fetus Data First Name Last Name Admitted to NICU Weight (g) Sex Living Outcome Pediatric Complications Fetus ID Race Codes Race Delivery Type [id number] Problems Problem Notes Problem Name Start Date End Date Resolution Snomed Code Not e Rubella non-immune 338996392 M MR PP Past history of multiple miscarriages 0939503172 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 Mixed anxiety and depressive disorder 825859568 4 EPDS score 15 David Calculation DAVID [...] Weight in lbs Pre/Post Dialysis Refused Weight 209.997063436020 BP Diastolic BP Location Tested BP Systolic BP Type 83 128 Fetus Heart Rate Present A 157 Present Fetus Movement A Yes Comments Patient states that is havin g heartburn, pain in rib area and some BH contractions. ok for tums, pepcid, begin routine prental care moved back from [place], reviewed office, precautions, +FM, GCT today f/u w eeks Flowsheet Date 05/04/2024 Watkins Score Blood Edema Fundus Height Fundus Units Glucose Ketones Leukocytes Nitrite Labor Signs Protein Cervic Dilation Cervic Effacement Cervic Station none Type Weight in lbs Pre/Post Dialysis Refused 213.408914473699 BP Diastolic BP Location Tested BP Systolic [...] Type Weight in lbs Pre/Post Dialysis Refused 220.818658691859 BP Diastolic BP Location Tested BP Systolic BP Type 81 124 Fetus Heart Rate Present Fetus Movement A Yes Comments Patient states that is havin g some light cramping. reviewed US, discussed renal dilation plan rpt in 4 weeks, reviewed vaccines. planning classes at [place], discussed EIOL an option answered questions f/u 2 weeks Flowsheet Date 06/01/2024 Watkins Score Blood Edema Fundus Height Fundus Units Glucose Ketones Leukocytes Nitrite Labor Signs Protein Cervic Dilation Cervic Effacement Cervic Station 33 cm Type Weight in lbs Pre/Post Dialysis Refused 228.994687685657 BP Diastolic BP Location Tested BP Systolic [...] Type Weight in lbs Pre/Post Dialysis Refused 235.407075371146 BP Diastolic BP Location Tested BP Systolic [...] Type Weight in lbs Pre/Post Dialysis Refused 236.392061059486 BP Diastolic BP Location Tested BP Systolic [...] Weight in lbs Pre/Post Dialysis Refused Weight 236.304772869845 BP Diastolic BP Location Tested BP Systolic [...] Type Weight in lbs Pre/Post Dialysis Refused 244.772065467263 BP Diastolic BP Location Tested BP Systolic [...]
--- OUTSIDE RECORDS SUMMARY | 2024-07-18 06:54 | XMS_ITS | Continuity of Care Document ---
Author Organization [facility] Address [address] [place] [address] Care Team Providers Care Central Office Operator Name Role Phone JUVENTINO DIGGS Primary Care Provider Assessment Encounter Date Assessment Date Assessment LastModified by Organization Details LastModified Time 05/20/2024 05/20/2024 Patient is __31_weeks . Discussed plan. Not available 05/20/2024 12:38:54 Plan of Treatment Reminders Order Date Submit [...] test No observ ation record ed. [email or web address] [address], [place], [address], 05/04/2024 12:19:11 05/04/2005/04/2024 US, obste tric, follo w-up No observ ation record ed. [email or web address] [address], [place], [address], 05/04/2024 22:27:21 05/04/20 24 05/04/2024 US, obste tric, bioph ysica l profi le No observ ation record ed. [email or web address] [address], [place], [address], 05/04/2024 17:18:32 05/18/2005/18/2024 US, obste tric, follo w-up No observ ation record ed. [facility] [address], [place], [address], 05/18/2024 18:12:58 05/18/20 24 05/18/2024 US, obste tric, follo w-up No observ ation record ed. [email or web address] [address], [place], [address], 05/20/2024 18:31:50 06/19/20 24 06/19/2024 US, obste tric, follo w-up No observ ation record ed. [email or web address] [address], [place], [address], 06/19/2024 20:46:58 06/19/2006/19/2024 US, obste tric, follo w-up No observ ation record ed. [facility] [address], [place], [address], 06/19/2024 17:04:08 Result Notes None recorded. Problems Name Problem SNOMED Code Status Onset Date Resolution Date Notes Provider Name and Address Organization Details Recorded Time Pregnanc y test negative 101652586 Completed 201412/08/2021 Negative Pregnanc y Test;Pra ctice ID: 0001 Jamee snyder [facility] 2 11:30:32 Amenorrh ea 03420084 Completed 201412/08/2021 AMENORRH EA;Pract ice ID: 0001 Jamee snyder [facility] 2 11:30:31 Routine antenata l care Completed 201412/08/2021 Supervis ion of other normal pregnanc y;Practi ce ID: 0001 Jamee snyder, [facility] 2 11:30:31 Pregnanc y test positive 869373324 Completed 201412/08/2021 Positive Pregnanc y Test;Pra ctice ID: 0001 Jamee snyder, [facility] 2 11:30:32 Uterine size for dates discrepa ncy 851063200 Completed 201412/08/2021 UTERINE SIZE MARKO-ANTE PAR;Prac lovely ID: 0001 [facility] 2 11:30:32 Threaten ed miscarri age 66616955 Completed 201412/08/2021 Threaten ed , antepart um;Pract ice ID: 0001 [facility] 2 11:30:32 Missed miscarri age 30682783 Completed 201412/08/2021 Missed ;Practic e ID: 0001 Jamee snyder, [facility] 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 2 11:30:32 Pelvic and perineal pain 050865238 Completed 201812/08/2021 Pelvic and perineal pain;Pra ctice ID: 0001 Jamee snyder, [facility] 2 11:30:32 Finding related to pregnanc y Completed 201812/08/2021 Recurren t pregnanc y loss;Pra ctice ID: 0001 Jamee snyder [facility] 2 11:30:32 Female infertil ity associat ed with anovulat ion [id number] Completed 201812/08/2021 Female infertil ity associat ed with anovulat ion;Prac lovely ID: 0001 Jamee Cruz [facility], [facility] 2 11:30:31 Surveill ance of contrace ption Completed 201812/08/2021 Encounte r for surveill ance of contrace ptives, unspecif ied;Prac lovely ID: 0001 Jamee Cruz [facility], [facility] 2 11:30:32 Venereal disease screenin g Completed 201312/08/2021 Screenin g examinat ion for venereal disease; Recorded Elsewher e: No Locat ion: [facility] S ource: EHR Scooper bee: N Odilonti ce ID: 0001 Ken lable Time: 02:15:00 PM Jamee Cruz [facility] 2 11:30:31 Complete Completed 201312/08/2021 Spontane ous , complete , without mention of complica tion;Rec orded Elsewher e: No Locat ion: [facility] S ource: EHR Scooper bee: N Odilonti ce ID: 0001 Ken lable Time: 11:45:00 AM Jamee Cruz [facility] 2 11:30:32 Speciali zed medical examinat ion Completed 201312/08/2021 Other specifie d chlamydi al diseases ;Recorde d Elsewher e: No Locat ion: [facility] S ource: EHR Scooper bee: N Practi ce ID: 0001 Ken lable Time: 02:15:00 PM Jamee Cruz [facility] 2 11:30:32 Adult health examinat ion Completed 201312/08/2021 ROUTINE MEDICAL EXAM;Rec orded Elsewher e: No Locat ion: [facility] S ource: EHR Scooper bee: N Odilonti ce ID: 0001 Ken lable Time: 02:15:00 PM Jamee Cruz [facility], [facility] 2 11:30:32 Speciali zed medical examinat ion Completed 201312/08/2021 ROUTINE TRAILER MECHANIC EXAMINAT ION;Ramone rded Elsewher e: No Locat ion: [facility] S ource: EHR Scooper bee: N Odilonti ce ID: 0001 Ken lable Time: 02:15:00 PM Jamee snyder, [facility] 2 11:30:32 Oligomen orrhea 34644758 Completed 201412/08/2021 Oligomen orrhea;R ecorded Elsewher e: No Locat ion: [facility] S ource: EHR Scooper bee: N Odilonti ce ID: 0001 Ken lable Time: 06:00:00 PM Jamee Cruz [facility], [facility] 2 11:30:32 Screenin g for malignan t neoplasm of cervix Completed 201312/08/2021 Screenin g for malignan t neoplasm s of the cervix;R ecorded Elsewher e: No Locat ion: [facility] S ource: EHR Scooper bee: N Emilie ce ID: 0001 Ken lable Time: 02:15:00 PM Jamee Cruz [facility], [facility] 2 11:30:31 Pregnanc y 35009635 Active 2023 Marian Valdez [facility], [facility] 4 13:31:50 Mixed anxiety and depressi ve disorder 319290282 Active 4 EPDS score 15 Marian Valdez [facility], [facility] 4 13:32:54 Past pregnanc y history of multiple miscarri ages Active former partner had transloc ation Radha Carballo, [place] [address], [place], [address], [place] [facility] 4 14:03:22 Rubella non-immu ne 597573336 Active MMR PP Jessica snyder, [facility] 4 10:33:54 Rubella non-immu ne 515687945 Active MMR PP Jessica snyder, [facility] 4 10:33:54 Problem Notes None recorded. Procedures Surgical History Date Name Laterality Status Provider Name and Address Organization Details Recorded Time 2 Date of Last Pap Smear completed [facility] 04/22/2024 13:24:55 1 extraction of wisdom tooth completed [facility] 04/22/2024 13:29:15 Imaging Results None [...] Prescrib ed Elsewher e: No [facility] odify By: kenneth angulo DateTime : 02/15/20 15 03:15:00 PM Not Available Not Available Not Available clomiphen e citrate 50 mg tablet take 1 Tablet by oral route every day for 5 days days 3-7 of cycle 01/30 completed Prescrib ed Elsewher e: No [facility] odify By: rianna flores DateTime : [...] Prescrib ed Elsewher e: Yes [facility]: [email or web address] trick En counter DateTime : 07/15/20 13 09:45:00 AM Not Available Not Available Not Available Provera 10 mg tablet take 1 tablet by oral route every day 01/12 completed Prescrib ed Elsewher e: No Locat ion: [facility] odify By: leandra sosa DateTime [...] Prescrib ed Elsewher e: Yes [facility] By: ángel Encount er DateTime : 07/15/20 13 09:45:00 AM Not Available Not Available Not Available Raoul-C DHA 35 mg-1 mg-200 mg capsule take 1 capsule by oral route every day 01/03 completed Prescrib ed Elsewher e: No [facility] By: [email or web address] trick En counter DateTime : 04/30/20 14 02:15:00 PM Not Available Not Available Not Available STUDENT NURSE-PNV-DH A 28 mg iron-1 mg-200 mg capsule take 1 capsule by oral route every day 01/12 completed Prescrib ed Elsewher e: No Locat ion: [facility] annamarie [facility] odify By: dmrose E ncounter DateTime [...] and Address Organization Details Last Updated DateTime 05/20/2024 167.01 cm 35.8 kg/m2 95515.32 14 g 124 mm[Hg] 81 mm[Hg] Marian Valdez [facility] 11:29:37 Social History Question Answer Notes LastModified by Organizat ion Details LastModified Time Tobacco Smoking Status Current Some Day Smoker [facility] 12/12/2021 11:03:45 What Is Your Level Of Alcohol Consumption? None [email or web address] Information not available 04/22/2024 If You Are , What Was Your Level Of Alcohol Consumption Prior To ? Occasional [email or web address] Information not available 04/22/2024 Are You Blind Or Do You Have Difficulty Seeing? No Information not available 12/12/2021 What Is Your Level Of Caffeine Consumption? Occasional Information not available 12/12/2021 In The 14 Days Before Symptom Onset, Have You Had Close Contact With A Laboratory-confir med COVID-19 While That Case Was Ill? No [email or web address] Information not available 04/22/2024 In The 14 Days Before Symptom Onset, Have You Had Close Contact With A Person Who Is Under Investigation For COVID-19 While That Person Was Ill? No [email or web address] Information not available 04/22/2024 Have You Been To An Area Known To Be High Risk For COVID-19? No [email or web address] Information not available 04/22/2024 Are You Deaf Or Do You Have Serious Difficulty Hearing? No Information not available 12/12/2021 What Type Of Diet Are You Following? REGULAR Information not available 12/12/2021 What Is The Highest Grade Or Level Of School You Have Completed Or The Highest Degree You Have Received? 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 No [email or web address] Information not available 04/22/2024 Do You Use Protection During Sex? No [email or web address] Information not available 04/22/2024 Do You Use Your Seat Belt Or Car Seat Routinely? Yes Information not available 12/12/2021 Do You Have Smoke And Carbon Monoxide Detectors In Your Home? Yes Information not available 12/12/2021 How Much Tobacco Do You Smoke? No Information not available 04/22/2024 Do You Feel Stressed (tense, Restless, Nervous, Or Anxious, Or Unable To Sleep At Night)? [id number] Information not available 12/12/2021 Do You Use Any Illicit Or Recreational Drugs? No Information not available 12/12/2021 Do You Use Sunscreen Routinely? Yes Information not available 12/12/2021 Has Tobacco Cessation Counseling Been Provided? Yes [email or web address] Information not available 04/22/2024 On What Date Was Tobacco Cessation Counseling Provided? 07/01/2024 [email or web address] Information not available 07/01/2024 Have You Used IV Drugs? No [email or web address] Information not available 04/22/2024 Do You Or Have You Ever Used Any Other Forms Of Tobacco Or Nicotine? Yes [email or web address] Information not available 04/22/2024 Sex: Unknown Functional [...] ) N Other N Drug/Latex Allergies/Reactions N Breast Cancer N Blood Transfusion N Dermatologic Disorders N [...] Diagnosis/Indication Diagnosis SNOMED-CT Code Diagnosis ICD10 Code [id number] Radha Carballo [facility] [address],[place] [address] 04/22/2024 11:59:21 04/22/2024 14:05:36 Gestation period, 27 weeks 23013204 Z3A.27 Venereal d isease screening 855596111 Z11.3 Routine an tenatal care 459850066 Z34.90 [id number] Radha Carballo [facility] [address],[place] [address] 05/04/2024 11:01:38 05/04/2024 11:51:07 Gestation period, 29 weeks 39082751 Z3A.29 [id number] Jamee Rodriguez [facility] [address],[place] [address] 05/04/2024 12:03:38 05/04/2024 12:29:23 heart deceleration 767518280 O36.8399 [id number] Kerrie Wood [facility] [address],[place] [address] 05/04/2024 12:15:48 05/04/2024 17:20:59 Nonreassuring status 191610823 O36.8999 O76 [id number] [facility] [address],[place] [address] 05/18/2024 17:06:31 05/18/2024 18:06:32 Medical examination for suspected condition 813726960 Z03.74 Z3A.31 [id number] Radha Carballo [facility] [address],[place] [address] 05/20/2024 11:01:33 05/20/2024 12:41:56 Gestation period, 31 weeks 89664291 Z3A.31 Health Concerns Section Related Observation LastModified by Organization Detai ls LastModified Time None Recorded Concern Status LastModified by Organization Details LastModified Time None Recorded Payers Encounter Date Sequence Insurance Name Policy Number Policy Forbes Covered Member ID Forbes Member ID Guarantor Name 05/20/2024 1 [place] [facility] [facility] AID Yuli Mercado [id number] Yuli Mercado OBGyn Episode Ob Episode Information Episode Created Date Number of Fetuses Patient Bloodtype Patient rh Status Prepregnancy Weight lbs Domestic Partner Domestic Partner Phone Father Name Oxyhydrogen Welder Status 04/22/20 24 1 O Positive [place] OPEN Fetus Data First Name Last Name Admitted to NICU Weight (g) Sex Living Outcome Pediatric Complications Fetus ID Race Codes Race Delivery Type [id number] Problems Problem Notes Problem Name Start Date End Date Resolution Snomed Code Not e Rubella non-immune 127860733 M MR BHATTI Past history of multiple miscarriages 3778964428 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 Mixed anxiety and depressive disorder 599155590 4 EPDS score 15 David Calculation DAVID [...] Weight in lbs Pre/Post Dialysis Refused Weight 209.204268801821 BP Diastolic BP Location Tested BP Systolic BP Type 83 128 Fetus Heart Rate Present A 157 Present Fetus Movement A Yes Comments Patient states that is havin g heartburn, pain in rib area and some BH contractions. ok for tums, pepcid, begin routine prental care moved back from [place], reviewed office, precautions, +FM, GCT today f/u w eeks Flowsheet Date 05/04/2024 Watkins Score Blood Edema Fundus Height Fundus Units Glucose Ketones Leukocytes Nitrite Labor Signs Protein Cervic Dilation Cervic Effacement Cervic Station none Type Weight in lbs Pre/Post Dialysis Refused 213.272183205079 BP Diastolic BP Location Tested BP Systolic [...] Type Weight in lbs Pre/Post Dialysis Refused 220.827318413055 BP Diastolic BP Location Tested BP Systolic BP Type 81 124 Fetus Heart Rate Present Fetus Movement A Yes Comments Patient states that is havin g some light cramping. reviewed US, discussed renal dilation plan rpt in 4 weeks, reviewed vaccines. planning classes at [place], discussed EIOL an option answered questions f/u 2 weeks Flowsheet Date 06/01/2024 Watkins Score Blood Edema Fundus Height Fundus Units Glucose Ketones Leukocytes Nitrite Labor Signs Protein Cervic Dilation Cervic Effacement Cervic Station 33 cm Type Weight in lbs Pre/Post Dialysis Refused 228.358920077751 BP Diastolic BP Location Tested BP Systolic [...] Type Weight in lbs Pre/Post Dialysis Refused 235.863351686339 BP Diastolic BP Location Tested BP Systolic [...] Type Weight in lbs Pre/Post Dialysis Refused 236.361179168923 BP Diastolic BP Location Tested BP Systolic [...] Weight in lbs Pre/Post Dialysis Refused Weight 236.124257725784 BP Diastolic BP Location Tested BP Systolic [...] Type Weight in lbs Pre/Post Dialysis Refused 244.471024355018 BP Diastolic BP Location Tested BP Systolic [...]
--- OUTSIDE RECORDS SUMMARY | 2024-07-18 06:54 | XMS_ITS | Continuity of Care Document ---
Author Organization [facility] Address [address] [place] [address] Care Team Providers Care Edge Dyer Name Role Phone JUVENTINO DIGGS Primary Care Provider [phone] Assessment Encounter Date Assessment Date Assessment LastModified by Organization Details LastModified Time 06/01/2024 06/01/2024 Patient is ___weeks . Discussed plan. [email or web address] Not available 06/01/2024 15:19:57 Plan of Treatment Reminders Order Date Submit [...] Abnormal Flag Note LastModifiedBy Organization Detail LastModifiedTime 05/04/20 24 05/04/2024 non-s tress test No observ ation record ed. [email or web address] [facility] [address], [place], [address], 05/04/2024 12:19:11 05/04/20 24 05/04/2024 US, obste tric, follo w-up No observ ation record ed. [email or web address] [facility] [address], [place], [address], 05/04/2024 22:27:21 05/04/20 24 05/04/2024 US, obste tric, bioph ysica l profi le No observ ation record ed. [facility] [address], [place], [address], 05/04/2024 17:18:32 05/18/20 24 05/18/2024 US, obste tric, follo w-up No observ ation record ed. [facility] [address], [place], [address], 05/18/2024 18:12:58 05/18/20 24 05/18/2024 US, obste tric, follo w-up No observ ation record ed. [email or web address] [address], [place], [address], 05/20/2024 18:31:50 06/19/20 24 06/19/2024 US, obste tric, follo w-up No observ ation record ed. [email or web address] [address], [place], [address], 06/19/2024 20:46:58 06/19/20 24 06/19/2024 US, obste tric, follo w-up No observ ation record ed. [facility] [address], [place], [address], 06/19/2024 17:04:08 Result Notes None recorded. Problems Name Problem SNOMED Code Status Onset Date Resolution Date Notes Provider Name and Address Organization Details Recorded Time Pregnanc y test negative 923996273 Completed 201412/08/2021 Negative Pregnanc y Test;Pra ctice ID: 0001 Jamee snyder [facility] 2 11:30:32 Amenorrh ea 33930474 Completed 201412/08/2021 AMENORRH EA;Pract ice ID: 0001 Jamee snyder [facility] 2 11:30:31 Routine antenata l care Completed 201412/08/2021 Supervis ion of other normal pregnanc y;Practi ce ID: 0001 Jamee snyder, [facility] 2 11:30:31 Pregnanc y test positive 432069293 Completed 201412/08/2021 Positive Pregnanc y Test;Pra ctice ID: 0001 Jamee snyder, [facility] 2 11:30:32 Uterine size for dates discrepa ncy [id number] Completed 201412/08/2021 UTERINE SIZE MARKO-ANTE PAR;Prac lovely ID: 0001 [facility] 2 11:30:32 Threaten ed miscarri age 61116049 Completed 201412/08/2021 Threaten ed , antepart um;Pract ice ID: 0001 [facility] 2 11:30:32 Missed miscarri age [id number] Completed 201412/08/2021 Missed ;Practic e ID: 0001 Jamee snyder, [facility] 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 2 11:30:32 Pelvic and perineal pain 138606742 Completed 201812/08/2021 Pelvic and perineal pain;Pra ctice ID: 0001 Jamee snyder, [facility] 2 11:30:32 Finding related to pregnanc y Completed 201812/08/2021 Recurren t pregnanc y loss;Pra ctice ID: 0001 Jamee snyder [facility] 2 11:30:32 Female infertil ity associat ed with anovulat ion [id number] Completed 201812/08/2021 Female infertil ity associat ed with anovulat ion;Prac lovely ID: 0001 Jamee Cruz [facility], [facility] 2 11:30:31 Surveill ance of contrace ption Completed 201812/08/2021 Encounte r for surveill ance of contrace ptives, unspecif ied;Prac lovely ID: 0001 Jaeme Cruz [facility], [facility] 2 11:30:32 Venereal disease screenin g Completed 201312/08/2021 Screenin g examinat ion for venereal disease; Recorded Elsewher e: No Locat ion: [facility] S ource: EHR Hand Laster bee: N Odilonti ce ID: 0001 Ken lable Time: 02:15:00 PM Jamee Cruz [facility] 2 11:30:31 Complete Completed 201312/08/2021 Spontane ous , complete , without mention of complica tion;Rec orded Elsewher e: No Locat ion: [facility] S ource: EHR Hand Laster bee: N Odilonti ce ID: 0001 Ken lable Time: 11:45:00 AM Jamee Cruz [facility] 2 11:30:32 Speciali zed medical examinat ion Completed 201312/08/2021 Other specifie d chlamydi al diseases ;Recorde d Elsewher e: No Locat ion: [facility] S ource: EHR Hand Laster bee: N Practi ce ID: 0001 Ken lable Time: 02:15:00 PM Jamee Cruz [facility] 2 11:30:32 Adult health examinat ion Completed 201312/08/2021 ROUTINE MEDICAL EXAM;Rec orded Elsewher e: No Locat ion: [facility] [place] ce ID: 0001 Ken lable Time: 02:15:00 PM Jamee Cruz [facility], [facility] 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 2 11:30:32 Oligomen orrhea [id number] Completed 201412/08/2021 Oligomen orrhea;R ecorded Elsewher e: No Locat ion: [facility] N Odilonti ce ID: 0001 Ken lable Time: 06:00:00 PM Jamee Cruz [facility], [facility] 2 11:30:32 Screenin g for malignan t neoplasm of cervix Completed 201312/08/2021 Screenin g for malignan t neoplasm s of the cervix;R ecorded Elsewher e: No Locat ion: [facility] N Odilonti ce ID: 0001 Ken lable Time: 02:15:00 PM Jamee Cruz [facility], [facility] 2 11:30:31 Pregnanc y 88183324 Active 2023 Marian Valdez [facility], [facility] 4 13:31:50 Mixed anxiety and depressi ve disorder 209236213 Active 4 EPDS score 15 Marian Valdez [facility], [facility] 4 13:32:54 Past pregnanc y history of multiple miscarri ages Active former partner had transloc ation Radha Carballo, [place] [address], [place], [address], [place] [facility] 4 14:03:22 Rubella non-immu ne 318439627 Active MMR PP Jessica snyder, [facility] 4 10:33:54 Rubella non-immu ne 660398080 Active MMR PP Jessica snyder, [facility] 4 10:33:54 Problem Notes None recorded. Procedures Surgical History Date Name Laterality Status Provider Name and Address Organization Details Recorded Time 2 Date of Last Pap Smear completed [facility] 04/22/2024 13:24:55 1 extraction of wisdom tooth completed [facility] 04/22/2024 13:29:15 Imaging Results None recorded. [...] Prescrib ed Elsewher e: No Locat ion: [facility] annamarie [facility] odify By: kenneth anuglo DateTime : 02/15/20 15 03:15:00 PM Not Available Not Available Not Available clomiphen e citrate 50 mg tablet take 1 Tablet by oral route every day for 5 days days 3-7 of cycle 01/30 completed Prescrib ed Elsewher e: No Locat ion: [facility] annamarie [facility] odify By: rianna flores DateTime : [...] e: Yes Loca tion: Caio de luna [facility] odify By: [email or web address] trick En counter DateTime : 07/15/20 13 09:45:00 AM Not Available Not Available Not Available Provera 10 mg tablet take 1 tablet by oral route every day 01/12 completed Prescrib ed Elsewher e: No Locat ion: Diane annamarie [facility] odify By: leandra sosa DateTime : [...] ed Elsewher e: Yes Loca tion: Caio [facility] odify By: ángel Encount er DateTime : 07/15/20 13 09:45:00 AM Not Available Not Available Not Available Raoul-C DHA 35 mg-1 mg-200 mg capsule take 1 capsule by oral route every day 01/03 completed Prescrib ed Elsewher e: No [facility] By: [email or web address] trick En counter DateTime : 04/30/20 14 02:15:00 PM Not Available Not Available Not Available 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 annamarie [facility] odify By: dmrose E ncounter DateTime : 01/04/20 15 06:00:00 PM Not Available Not Available Not Available Annovera 0.15 mg-0.013 mg/24 hr vaginal ring Insert ring vaginall y x 3wks, remove 1 wk ring free; then rinse & reinsert yearly vag ring. 04/22 completed Not Available Not Available Not Available Vitals Date Recorded Body weight Systolic blood pressure Diastolic blood pressure Provider Name and Address Organization Details Last Updated DateTime 06/01/2024 866433.060 36 g 128 mm[Hg] 86 mm[Hg] Marti Arreola [facility] 06/01/2024 15:21:14 Social History Question Answer Notes LastModified by Organizat ion Details LastModified Time Tobacco Smoking Status Current Some Day Smoker Jamee snyder, [facility] 12/12/2021 11:03:45 What Is Your Level Of Alcohol Consumption? None Information not available 04/22/2024 If You Are , What Was Your Level Of Alcohol Consumption Prior To ? Occasional Information not available 04/22/2024 Are You Blind Or Do You Have Difficulty Seeing? No Information not available 12/12/2021 What Is Your Level Of Caffeine Consumption? Occasional Information not available 12/12/2021 In The 14 Days Before Symptom Onset, Have You Had Close Contact With A Laboratory-confir med COVID-19 While That Case Was Ill? No [email or web address] Information not available 04/22/2024 In The 14 Days Before Symptom Onset, Have You Had Close Contact With A Person Who Is Under Investigation For COVID-19 While That Person Was Ill? No [email or web address] Information not available 04/22/2024 Have You Been To An Area Known To Be High Risk For COVID-19? No [email or web address] Information not available 04/22/2024 Are You Deaf Or Do You Have Serious Difficulty Hearing? No Information not available 12/12/2021 What Type Of Diet Are You Following? REGULAR Information not available 12/12/2021 What Is The Highest Grade Or Level Of School You Have Completed Or The Highest Degree You Have Received? 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 No [email or web address] Information not available 04/22/2024 Do You Use Protection During Sex? No Information not available 04/22/2024 Do You Use Your Seat Belt Or Car Seat Routinely? Yes Information not available 12/12/2021 Do You Have Smoke And Carbon Monoxide Detectors In Your Home? Yes Information not available 12/12/2021 How Much Tobacco Do You Smoke? No [email or web address] Information not available 04/22/2024 Do You Feel Stressed (tense, Restless, Nervous, Or Anxious, Or Unable To Sleep At Night)? [id number] Information not available 12/12/2021 Do You Use Any Illicit Or Recreational Drugs? No Information not available 12/12/2021 Do You Use Sunscreen Routinely? Yes Information not available 12/12/2021 Has Tobacco Cessation Counseling Been Provided? Yes [email or web address] Information not available 04/22/2024 On What Date Was Tobacco Cessation Counseling Provided? 07/01/2024 [email or web address] Information not available 07/01/2024 Have You Used IV Drugs? No [email or web address] Information not available 04/22/2024 Do You Or Have You Ever Used Any Other Forms Of Tobacco Or Nicotine? Yes [email or web address] Information not available 04/22/2024 Sex: Unknown Functional [...] Diagnosis/Indication Diagnosis SNOMED-CT Code Diagnosis ICD10 Code [id number] [facility] [address] [address] 05/04/2024 11:01:38 05/04/2024 11:51:07 Gestation period, 29 weeks 28380060 Z3A.29 [id number] Jamee Rodriguez [facility] [address],[place] [address] 05/04/2024 12:03:38 05/04/2024 12:29:23 heart deceleration 282083162 O36.8399 [id number] Kerrie Wood [facility] [address],[place] [address] 05/04/2024 12:15:48 05/04/2024 17:20:59 Nonreassuring status 345218235 O36.8999 O76 [id number] Yolis Nazario [facility] [address],[place] [address] 05/18/2024 17:06:31 05/18/2024 18:06:32 Medical examination for suspected condition 978861859 Z03.74 Z3A.31 [id number] Radha Carballo [facility] [address],[place] [address] 05/20/2024 11:01:33 05/20/2024 12:41:56 Gestation period, 31 weeks 03985991 Z3A.31 [id number] Juni Turcios MD [facility] [address],[place] [address] 06/01/2024 14:45:41 06/01/2024 15:57:26 Routine care 210436866 Z34.80 Health Concerns Section Related Observation LastModified by Organization Detai ls LastModified Time None Recorded Concern Status LastModified by Organization Details LastModified Time None Recorded Payers Encounter Date Sequence Insurance Name Policy Number Policy Forbes Covered Member ID Forbes Member ID Guarantor Name 06/01/2024 1 [facility] Yuli Mercdao [id number] Yuli Mercado OBGyn Episode Ob Episode Information Episode Created Date Number of Fetuses Patient Bloodtype Patient rh Status Prepregnancy Weight lbs Domestic Partner Domestic Partner Phone Father Name Candy Decorator Status 04/22/20 24 1 O Positive [place] OPEN Fetus Data First Name Last Name Admitted to NICU Weight (g) Sex Living Outcome Pediatric Complications Fetus ID Race Codes Race Delivery Type [id number] Problems Problem Notes Problem Name Start Date End Date Resolution Snomed Code Not e Rubella non-immune 166023815 M MR BHATTI Past history of multiple miscarriages 7005987310 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 ok for tums, pepcid, begin routine prental care moved back from [place], reviewed office, precautions, +FM, GCT today f/u w eeks Flowsheet Date 05/04/2024 Watkins Score Blood Edema Fundus Height Fundus Units Glucose Ketones Leukocytes Nitrite Labor Signs Protein Cervic Dilation Cervic Effacement Cervic Station none Type Weight in lbs Pre/Post Dialysis Refused 213.564124163068 BP Diastolic BP Location Tested BP Systolic [...] Type Weight in lbs Pre/Post Dialysis Refused 220.732485941668 BP Diastolic BP Location Tested BP Systolic BP Type 81 124 Fetus Heart Rate Present Fetus Movement A Yes Comments Patient states that is havin g some light cramping. reviewed US, discussed renal dilation plan rpt in 4 weeks, reviewed vaccines. planning classes at [place], discussed EIOL an option answered questions f/u 2 weeks Flowsheet Date 06/01/2024 Watkins Score Blood Edema Fundus Height Fundus Units Glucose Ketones Leukocytes Nitrite Labor Signs Protein Cervic Dilation Cervic Effacement Cervic Station 33 cm Type Weight in lbs Pre/Post Dialysis Refused 228.724611435433 BP Diastolic BP Location Tested BP Systolic [...] Type Weight in lbs Pre/Post Dialysis Refused 235.718035405375 BP Diastolic BP Location Tested BP Systolic [...] Type Weight in lbs Pre/Post Dialysis Refused 236.268840867302 BP Diastolic BP Location Tested BP Systolic [...] Weight in lbs Pre/Post Dialysis Refused Weight 236.599558958654 BP Diastolic BP Location Tested BP Systolic [...] Type Weight in lbs Pre/Post Dialysis Refused 244.440806185120 BP Diastolic BP Location Tested BP Systolic [...]
--- OUTSIDE RECORDS SUMMARY | 2024-07-18 06:55 | XMS_ITS | Continuity of Care Document ---
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 Plan of Treatment Reminders Order Date Submit Date Provider Last Modified By Organization Details Last Modified Time Details Appointments None recorded. Lab culture, urine 2023 [facility] (Lab), [address] [place], [address], 4 08:10:20 CT + NG + TV, RNA, unspecified specimen 2023 024 [facility] (Lab), [address] [facility], [place], [address], 4 08:10:19 drug screen, urine 2023 024 [facility] [address], [place], [address], 4 18:38:57 Referral None recorded. Procedures None recorded. Surgeries None recorded. Imaging None recorded. Medication Orders None recorded. Patient TargetsNo targets recorded. Patient InstructionsNo instructions recorded. Reason for Referral None Reported. Results Created Date Observation Date Name Description Value Unit Range Abnormal Flag Note LastModifiedBy Organization Detail LastModifiedTime 04/22/20 24 04/22/2024 drug scree n, urine Amphetamines : negati ve Not Available [facility] [address], [place], [address], 04/22/2024 13:30:06 04/22/20 24 04/22/2024 drug scree n, urine Cannabinoids : negati ve Not Available [facility] [address], [place], [address], 04/22/2024 13:30:06 04/22/20 24 04/22/2024 drug scree n, urine Cocaine: negati ve Not Available [facility] [address], [place], [address], 04/22/2024 13:30:06 04/22/20 24 04/22/2024 drug scree n, urine Opiates: negati ve Not Available [facility] [address], [place], [address], 04/22/2024 13:30:06 04/22/20 24 04/22/2024 drug scree n, urine Phenocyclidi ne: negati ve Not Available [facility] [address], [place], [address], 04/22/2024 13:30:06 04/22/20 24 04/22/2024 drug scree n, urine Barbiturates : negati ve Not Available [facility] [address], [place], [address], 04/22/2024 13:30:06 04/22/20 24 04/22/2024 drug scree n, urine Benzodiazepi antoni: negati ve Not Available [facility] [address], [place], [address], 04/22/2024 13:30:06 04/22/20 24 04/22/2024 drug scree n, urine Ethanol: negati ve Not Available [facility] [address], [place], [address], 04/22/2024 13:30:06 04/22/20 24 04/22/2024 drug scree n, urine Hallucinogen s: negati ve Not Available [facility] [address], [place], [address], 04/22/2024 13:30:06 04/22/20 24 04/22/2024 drug scree n, urine Inhalants: negati ve Not Available [facility] [address], [place], [address], 04/22/2024 13:30:06 04/22/20 24 04/22/2024 drug scree n, urine Anabolic Steroids: negati ve Not Available [facility] [address], [place], [address], 04/22/2024 13:30:06 04/22/20 24 04/22/2024 drug scree n, urine Other: negati ve Not Available [facility] [address], [place], [address], 04/22/2024 13:30:06 05/04/20 24 05/04/2024 non-s tress test No observ ation record ed. [email or web address] [facility] [address], [place], [address], 05/04/2024 12:19:11 05/04/20 24 05/04/2024 US, obste tric, follo w-up No observ ation record ed. [email or web address] [address], [place], [address], 05/04/2024 22:27:21 05/04/2005/04/2024 US, obste tric, bioph ysica l profi le No observ ation record ed. [email or web address] [facility] [address], [place], [address], 05/04/2024 17:18:32 05/18/2005/18/2024 US, obste tric, follo w-up No observ ation record ed. [facility] [address], [place], [address], 05/18/2024 18:12:58 05/18/20 24 05/18/2024 US, obste tric, follo w-up No observ ation record ed. [email or web address] [address], [place], [address], 05/20/2024 18:31:50 06/19/2006/19/2024 US, obste tric, follo w-up No observ ation record ed. [email or web address] [address], [place], [address], 06/19/2024 20:46:58 06/19/2006/19/2024 US, obste tric, follo w-up No observ ation record ed. [facility] [address], [place], [address], 06/19/2024 17:04:08 Result Notes None recorded. Problems Name Problem SNOMED Code Status Onset Date Resolution Date Notes Provider Name and Address Organization Details Recorded Time Pregnanc y test negative 858371542 Completed 201412/08/2021 Negative Pregnanc y Test;Pra ctice ID: 0001 Jamee snyder [facility] 2 11:30:32 Amenorrh ea 62501988 Completed 201412/08/2021 AMENORRH EA;Pract ice ID: 0001 Jamee snyder [facility] 2 11:30:31 Routine antenata l care Completed 201412/08/2021 Supervis ion of other normal pregnanc y;Practi ce ID: 0001 Jamee snyder [facility] 2 11:30:31 Pregnanc y test positive 766663584 Completed 201412/08/2021 Positive Pregnanc y Test;Pra ctice ID: 0001 Jamee snyder, [facility] 2 11:30:32 Uterine size for dates discrepa ncy 419513473 Completed 201412/08/2021 UTERINE SIZE MARKO-ANTE PAR;Prac lovely ID: 0001 Jamee snyder, [facility] 2 11:30:32 Threaten ed miscarri age 01970450 Completed 201412/08/2021 Threaten ed , antepart um;Pract ice ID: 0001 [facility] 11:30:32 Missed miscarri age 57950586 Completed 201412/08/2021 Missed ;Practic e ID: 0001 Jamee snyder [facility] 2 11:30:[address] Concept Completed 201812/08/2021 Encntr for outbound telemarketing representative exam (general ) (routine ) w/o abn findings ;Practic e ID: 0001 Jamee snyder [facility] 2 11:30:32 Pelvic and perineal pain 700675336 Completed 201812/08/2021 Pelvic and perineal pain;Pra ctice ID: 0001 Jamee snyder, [facility] 2 11:30:32 Finding related to pregnanc y Completed 201812/08/2021 Recurren t pregnanc y loss;Pra ctice ID: 0001 Jamee snyder [facility] 2 11:30:32 Female infertil ity associat ed with anovulat ion 617202621 Completed 201812/08/2021 Female infertil ity associat ed with anovulat ion;Prac lovely ID: 0001 Jamee snyder, [facility] 2 11:30:31 Surveill ance of contrace ption Completed 201812/08/2021 Encounte r for surveill ance of contrace ptives, unspecif ied;Prac lovely ID: 0001 Jamee Cruz [place], [facility] 2 11:30:32 Venereal disease screenin g Completed 201312/08/2021 Screenin g examinat ion for venereal disease; Recorded Elsewher e: No Locat ion: [facility] S ource: EHR Awning Assembler bee: N Practi ce ID: 0001 Ken lable Time: 02:15:00 PM Jamee Cruz [facility] 2 11:30:31 Complete Completed 201312/08/2021 Spontane ous , complete , without mention of complica tion;Rec orded Elsewher e: No Locat ion: [facility] S ource: EHR Awning Assembler bee: N Practi ce ID: 0001 Ken lable Time: 11:45:00 AM Jamee Cruz [place], [facility] 2 11:30:32 Speciali zed medical examinat ion Completed 201312/08/2021 Other specifie d chlamydi al diseases ;Recorde d Elsewher e: No Locat ion: [facility] S ource: EHR Awning Assembler bee: N Practi ce ID: 0001 Ken lable Time: 02:15:00 PM Jamee Cruz [facility] 2 11:30:32 Adult health examinat ion Completed 201312/08/2021 ROUTINE MEDICAL EXAM;Rec orded Elsewher e: No Locat ion: [facility] S ource: EHR Awning Assembler bee: N Practi ce ID: 0001 Ken lable Time: 02:15:00 PM Jamee Cruz [facility] 2 11:30:32 Speciali zed medical examinat ion Completed 201312/08/2021 ROUTINE PHYSICIAN EXAMINAT ION;Ramone rded Elsewher e: No Locat ion: [facility] S ource: EHR Awning Assembler bee: N Odilonti ce ID: 0001 Ken lable Time: 02:15:00 PM Jamee Cruz [place], [facility] 2 11:30:32 Oligomen orrhea 57676054 Completed 201412/08/2021 Oligomen orrhea;R ecorded Elsewher e: No Locat ion: [facility] S ource: EHR Awning Assembler bee: N Odilonti ce ID: 0001 Ken lable Time: 06:00:00 PM Jamee Cruz [place], [facility] 2 11:30:32 Screenin g for malignan t neoplasm of cervix Completed 201312/08/2021 Screenin g for malignan t neoplasm s of the cervix;R ecorded Elsewher e: No Locat ion: [facility] S ource: EHR Awning Assembler bee: N Odilonti ce ID: 0001 Ken lable Time: 02:15:00 PM Jamee Cruz [place], [facility] 2 11:30:31 Pregnanc y 92383259 Active 2023 Marian Valdez null, [facility] 4 13:31:50 Mixed anxiety and depressi ve disorder 195442389 Active 4 EPDS score 15 Marian Valdez null, [facility] 4 13:32:54 Past pregnanc y history of multiple miscarri ages Active former partner had transloc ation Radha Carballo, [place] [address], [place], [address], [place] [facility] 4 14:03:22 Rubella non-immu ne 447146258 Active MMR PP Jessica snyder [facility] 4 10:33:54 Rubella non-immu ne 512130954 Active MMR PP Jessica snyder [facility] 4 10:33:54 Problem Notes None recorded. Procedures Surgical History Date Name Laterality Status Provider Name and Address Organization Details Recorded Time 2 Date of [facility] 13:24:55 1 extraction of wisdom tooth completed [facility] 04/22/2024 13:29:15 Imaging Results None [...] Prescrib ed Elsewher e: No Locat ion: [facility] odify By: kenneth angulo DateTime : 02/15/20 15 03:15:00 PM Not Available Not Available Not Available clomiphen e citrate 50 mg tablet take 1 Tablet by oral route every day for 5 days days 3-7 of cycle 01/30 completed Prescrib ed Elsewher e: No Locat ion: [facility] M odify By: rianna flores DateTime : 01/27/20 [...] Elsewher e: Yes Loca tion: Naiamparo annamarie [facility] odify By: [email or web address] trick En counter DateTime : 07/15/20 13 09:45:00 AM Not Available Not Available Not Available Provera 10 mg tablet take 1 tablet by oral route every day 01/12 completed Prescrib ed Elsewher e: No Locat ion: [facility] odify By: leandra [email or web address] DateTime : 01/04/20 15 06:00:00 PM Not [...] e: Yes Loca tion: [facility] odify By: adminnew Encount er DateTime : 07/15/20 13 09:45:00 AM Not Available Not Available Not Available Raoul-C DHA 35 mg-1 mg-200 mg capsule take 1 capsule by oral route every day 01/03 completed Prescrib ed Elsewher e: No Locat ion: [facility] [facility] odify By: [email or web address] trick En counter DateTime : 04/30/20 14 02:15:00 PM Not Available Not Available Not Available 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 13:23:43 Social History Question Answer Notes LastModified by Organizat ion Details LastModified Time Tobacco Smoking Status Current Some Day Smoker Jamee Anthony snyder, [facility] 12/12/2021 11:03:45 What Is Your Level Of Alcohol Consumption? None Information not available 04/22/2024 If You Are , What Was Your Level Of Alcohol Consumption Prior To ? Occasional [email or web address] Information not available 04/22/2024 Are You Blind Or Do You Have Difficulty Seeing? No Information not available 12/12/2021 What Is Your Level Of Caffeine Consumption? Occasional Information not available 12/12/2021 In The 14 Days Before Symptom Onset, Have You Had Close Contact With A Laboratory-confir med COVID-19 While That Case Was Ill? No [email or web address] Information not available 04/22/2024 In The 14 Days Before Symptom Onset, Have You Had Close Contact With A Person Who Is Under Investigation For COVID-19 While That Person Was Ill? No [email or web address] Information not available 04/22/2024 Have You Been To An Area Known To Be High Risk For COVID-19? No Information not available 04/22/2024 Are You Deaf Or Do You Have Serious Difficulty Hearing? No Information not available 12/12/2021 What Type Of Diet Are You Following? REGULAR Information not available 12/12/2021 What Is The Highest Grade Or Level Of School You Have Completed Or The Highest Degree You Have Received? 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 No Information not available 04/22/2024 Do You Use Protection During Sex? No [email or web address] Information not available 04/22/2024 Do You Use Your Seat Belt Or Car Seat Routinely? Yes Information not available 12/12/2021 Do You Have Smoke And Carbon Monoxide Detectors In Your Home? Yes Information not available 12/12/2021 How Much Tobacco Do You Smoke? No [email or web address] Information not available 04/22/2024 Do You Feel Stressed (tense, Restless, Nervous, Or Anxious, Or Unable To Sleep At Night)? [id number] Information not available 12/12/2021 Do You Use Any Illicit Or Recreational Drugs? No Information not available 12/12/2021 Do You Use Sunscreen Routinely? Yes Information not available 12/12/2021 Has Tobacco Cessation Counseling Been Provided? Yes [email or web address] Information not available 04/22/2024 On What Date Was Tobacco Cessation Counseling Provided? 07/01/2024 [email or web address] Information not available 07/01/2024 Have You Used IV Drugs? No Information not available 04/22/2024 Do You Or Have You Ever Used Any Other Forms Of Tobacco Or Nicotine? Yes [email or web address] Information not available 04/22/2024 Sex: Unknown Functional [...] Diagnosis/Indication Diagnosis SNOMED-CT Code Diagnosis ICD10 Code 128839 Radha Carballo CNM [facility] [address] [address] 04/22/2024 11:59:21 04/22/2024 14:05:36 Gestation period, 27 weeks 88294978 Z3A.27 Venereal d isease screening 449703244 Z11.3 Routine an tenatal care 499594017 Z34.90 Health Concerns Section Related Observation LastModified by Organization Detai ls LastModified Time None Recorded Concern Status LastModified by Organization Details LastModified Time None Recorded Payers Encounter Date Sequence Insurance Name Policy Number Policy Forbes Covered Member ID Forbes Member ID Guarantor Name 04/22/2024 1 [place] [facility] Yuli Mercado [id number] Yuli Mercado OBGyn Episode Ob Episode Information Episode Created Date Number of Fetuses Patient Bloodtype Patient rh Status Prepregnancy Weight lbs Domestic Partner Domestic Partner Phone Father Name Vp Talent Management Status 04/22/20 24 1 O Positive [place] OPEN Fetus Data First Name Last Name Admitted to NICU Weight (g) Sex Living Outcome Pediatric Complications Fetus ID Race Codes Race Delivery Type [id number] Problems Problem Notes Problem Name Start Date End Date Resolution Snomed Code Not e Rubella non-immune [id number] M PP Past history of multiple miscarriages 1818248855 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 Mixed anxiety and depressive disorder 773175518 4 EPDS score 15 David Calculation DAVID [...] Weight in lbs Pre/Post Dialysis Refused Weight 209.904187203616 BP Diastolic BP Location Tested BP Systolic BP Type 83 128 Fetus Heart Rate Present A 157 Present Fetus Movement A Yes Comments Patient states that is havin g heartburn, pain in rib area and some BH contractions. ok for tums, pepcid, begin routine prental care moved back from [place], reviewed office, precautions, +FM, GCT today f/u w eeks Flowsheet Date 05/04/2024 Watkins Score Blood Edema Fundus Height Fundus Units Glucose Ketones Leukocytes Nitrite Labor Signs Protein Cervic Dilation Cervic Effacement Cervic Station none Type Weight in lbs Pre/Post Dialysis Refused 213.750579320812 BP Diastolic BP Location Tested BP Systolic [...] Type Weight in lbs Pre/Post Dialysis Refused 220.842360775590 BP Diastolic BP Location Tested BP Systolic BP Type 81 124 Fetus Heart Rate Present Fetus Movement A Yes Comments Patient states that is havin g some light cramping. reviewed US, discussed renal dilation plan rpt in 4 weeks, reviewed vaccines. planning classes at [facility], discussed EIOL an option answered questions f/u 2 weeks Flowsheet Date 06/01/2024 Watkins Score Blood Edema Fundus Height Fundus Units Glucose Ketones Leukocytes Nitrite Labor Signs Protein Cervic Dilation Cervic Effacement Cervic Station 33 cm Type Weight in lbs Pre/Post Dialysis Refused 228.294216088746 BP Diastolic BP Location Tested BP Systolic [...] Type Weight in lbs Pre/Post Dialysis Refused 235.112048817542 BP Diastolic BP Location Tested BP Systolic [...] Type Weight in lbs Pre/Post Dialysis Refused 236.858942433847 BP Diastolic BP Location Tested BP Systolic [...] Weight in lbs Pre/Post Dialysis Refused Weight 236.710162591140 BP Diastolic BP Location Tested BP Systolic [...] Type Weight in lbs Pre/Post Dialysis Refused 244.869452460591 BP Diastolic BP Location Tested BP Systolic [...]
--- OUTSIDE RECORDS SUMMARY | 2024-07-18 06:55 | XMS_ITS | Continuity of Care Document ---
Author Organization [facility] Address [address] [place] [address] Care Team Providers Care Education Courses Sales Representative Name Role Phone JUVENTINO DIGGS Primary Care Provider [phone] Assessment Encounter Date Assessment Date Assessment LastModified by Organization Details LastModified Time 05/04/2024 05/04/2024 Patient is _29__weeks . Discussed plan. Not available 05/04/2024 11:49:31 Plan of Treatment Reminders Order Date Submit [...] test No observ ation record ed. [email or web address] [place] [address], [place], [address], 05/04/2024 12:19:11 05/04/2005/04/2024 US, obste tric, follo w-up No observ ation record ed. [email or web address] [address] [address], [place], [address], 05/04/2024 22:27:21 05/04/20 24 05/04/2024 US, obste tric, bioph ysica l profi le No observ ation record ed. [email or web address] [place] [address], [place], [address], 05/04/2024 17:18:32 05/18/2005/18/2024 US, obste tric, follo w-up No observ ation record ed. [facility] [address], [place], [address], 05/18/2024 18:12:58 05/18/20 24 05/18/2024 US, obste tric, follo w-up No observ ation record ed. [email or web address] [address], [place], [address], 05/20/2024 18:31:50 06/19/20 24 06/19/2024 US, obste tric, follo w-up No observ ation record ed. [email or web address] [address], [place], [address], 06/19/2024 20:46:58 06/19/2006/19/2024 US, obste tric, follo w-up No observ ation record ed. [facility] [address], [place], [address], 06/19/2024 17:04:08 Result Notes None recorded. Problems Name Problem SNOMED Code Status Onset Date Resolution Date Notes Provider Name and Address Organization Details Recorded Time Pregnanc y test negative 507190220 Completed 201412/08/2021 Negative Pregnanc y Test;Pra ctice ID: 0001 Jamee snyder [facility] 2 11:30:32 Amenorrh ea 78169674 Completed 201412/08/2021 AMENORRH EA;Pract ice ID: 0001 Jamee snyder [facility] 2 11:30:31 Routine antenata l care Completed 201412/08/2021 Supervis ion of other normal pregnanc y;Practi ce ID: 0001 Jamee snyder, [facility] 2 11:30:31 Pregnanc y test positive 480026743 Completed 201412/08/2021 Positive Pregnanc y Test;Pra ctice ID: 0001 Jamee snyder, [facility] 2 11:30:32 Uterine size for dates discrepa ncy 808842960 Completed 201412/08/2021 UTERINE SIZE MARKO-ANTE PAR;Prac lovely ID: 0001 [facility] 2 11:30:32 Threaten ed miscarri age 56462028 Completed 201412/08/2021 Threaten ed , antepart um;Pract ice ID: 0001 [facility] 2 11:30:32 Missed miscarri age 44451987 Completed 201412/08/2021 Missed ;Practic e ID: 0001 Jamee snyder, [facility] 2 11:30:[address] Concept Completed 201812/08/2021 Encntr for door slinger exam (general ) (routine ) w/o abn findings ;Practic e ID: 0001 Jamee snyder, [facility] 2 11:30:32 Pelvic and perineal pain 923806468 Completed 201812/08/2021 Pelvic and perineal pain;Pra ctice ID: 0001 Jamee snyder, [facility] 2 11:30:32 Finding related to pregnanc y Completed 201812/08/2021 Recurren t pregnanc y loss;Pra ctice ID: 0001 Jamee snyder [facility] 2 11:30:32 Female infertil ity associat ed with anovulat ion [id number] Completed 201812/08/2021 Female infertil ity associat ed with anovulat ion;Prac lovely ID: 0001 Jamee Cruz [facility], [facility] 2 11:30:31 Surveill ance of contrace ption Completed 201812/08/2021 Encounte r for surveill ance of contrace ptives, unspecif ied;Prac lovely ID: 0001 Jamee Cruz [facility], [facility] 2 11:30:32 Venereal disease screenin g Completed 201312/08/2021 Screenin g examinat ion for venereal disease; Recorded Elsewher e: No Locat ion: [facility] S ource: [facility] Case Records Supervisor bee: N Odilonti ce ID: 0001 Ken lable Time: 02:15:00 PM Jamee Cruz [facility] 2 11:30:31 Complete Completed 201312/08/2021 Spontane ous , complete , without mention of complica tion;Rec orded Elsewher e: No Locat ion: [facility] S ource: [facility] Supervisor bee: N Odilonti ce ID: 0001 Ken lable Time: 11:45:00 AM Jamee Cruz [facility] 2 11:30:32 Speciali zed medical examinat ion Completed 201312/08/2021 Other specifie d chlamydi al diseases ;Recorde d Elsewher e: No Locat ion: [facility] S ource: [facility] Supervisor bee: N Practi ce ID: 0001 Ken lable Time: 02:15:00 PM Jamee Cruz [facility] 2 11:30:32 Adult health examinat ion Completed 201312/08/2021 ROUTINE MEDICAL EXAM;Rec orded Elsewher e: No Locat ion: [facility] S ource: [facility] Supervisor bee: N Odilonti ce ID: 0001 Ken lable Time: 02:15:00 PM Jamee Cruz [facility], [facility] 2 11:30:32 Speciali zed medical examinat ion Completed 201312/08/2021 ROUTINE GAS ENGINE MECHANIC EXAMINAT ION;Ramone rded Elsewher e: No Locat ion: [facility] S ource: [facility] Records Supervisor bee: N Odilonti ce ID: 0001 Ken lable Time: 02:15:00 PM Jamee snyder, [facility] 2 11:30:32 Oligomen orrhea 13118173 Completed 201412/08/2021 Oligomen orrhea;R ecorded Elsewher e: No Locat ion: [facility] S ource: [facility] Case Records Supervisor bee: N Odilonti ce ID: 0001 Ken lable Time: 06:00:00 PM Jamee Cruz [facility], [facility] 2 11:30:32 Screenin g for malignan t neoplasm of cervix Completed 201312/08/2021 Screenin g for malignan t neoplasm s of the cervix;R ecorded Elsewher e: No Locat ion: [facility] S ource: [facility] Case Records Supervisor ebe: N Emilie ce ID: 0001 Ken lable Time: 02:15:00 PM Jamee Cruz [facility], [facility] 2 11:30:31 Pregnanc y 34308557 Active 2023 Marian Valdez [facility], [facility] 4 13:31:50 Mixed anxiety and depressi ve disorder 805494983 Active 4 EPDS score 15 Marian Valdez [facility], [facility] 4 13:32:54 Past pregnanc y history of multiple miscarri ages Active former partner had transloc ation Radha Carballo, [place] [address], [place], [address], [place] [facility] 4 14:03:22 Rubella non-immu ne 077379733 Active MMR PP Jessica snyder, [facility] 4 10:33:54 Rubella non-immu ne 885016837 Active MMR PP Jessica snyder, [facility] 4 10:33:54 Problem Notes None recorded. Procedures Surgical History Date Name Laterality Status Provider Name and Address Organization Details Recorded Time 2 Date of Last Pap Smear completed [facility] 04/22/2024 13:24:55 1 extraction of wisdom tooth completed [facility] 04/22/2024 13:29:15 Imaging Results None recorded. [...] Prescrib ed Elsewher e: No [facility] odify By: kenneth angulo DateTime : 02/15/20 15 03:15:00 PM Not Available Not Available Not Available clomiphen e citrate 50 mg tablet take 1 Tablet by oral route every day for 5 days days 3-7 of cycle 01/30 completed Prescrib ed Elsewher e: No [facility] odify By: rianna flores DateTime : [...] Prescrib ed Elsewher e: Yes [facility] By: [email or web address] trick En counter DateTime : 07/15/20 13 09:45:00 AM Not Available Not Available Not Available Provera 10 mg tablet take 1 tablet by oral route every day 01/12 completed Prescrib ed Elsewher e: No Locat ion: [facility] odify By: leandra sosa DateTime : 01/04/20 [...] Prescrib ed Elsewher e: Yes [facility] By: ángel Encount er DateTime : 07/15/20 13 09:45:00 AM Not Available Not Available Not Available Raoul-C DHA 35 mg-1 mg-200 mg capsule take 1 capsule by oral route every day 01/03 completed Prescrib ed Elsewher e: No [facility] By: kmkirkpa trick En counter DateTime : 04/30/20 14 02:15:00 PM Not Available Not Available Not Available 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 11:39:14 Social History Question Answer Notes LastModified by Organizat ion Details LastModified Time Tobacco Smoking Status Current Some Day Smoker Jamee Anthony snyder, [facility] 12/12/2021 11:03:45 What Is Your Level Of Alcohol Consumption? None [email or web address] Information not available 04/22/2024 If You Are , What Was Your Level Of Alcohol Consumption Prior To ? Occasional [email or web address] Information not available 04/22/2024 Are You Blind Or Do You Have Difficulty Seeing? No Information not available 12/12/2021 What Is Your Level Of Caffeine Consumption? Occasional Information not available 12/12/2021 In The 14 Days Before Symptom Onset, Have You Had Close Contact With A Laboratory-confir med COVID-19 While That Case Was Ill? No [email or web address] Information not available 04/22/2024 In The 14 Days Before Symptom Onset, Have You Had Close Contact With A Person Who Is Under Investigation For COVID-19 While That Person Was Ill? No [email or web address] Information not available 04/22/2024 Have You Been To An Area Known To Be High Risk For COVID-19? No [email or web address] Information not available 04/22/2024 Are You Deaf Or Do You Have Serious Difficulty Hearing? No Information not available 12/12/2021 What Type Of Diet Are You Following? REGULAR Information not available 12/12/2021 What Is The Highest Grade Or Level Of School You Have Completed Or The Highest Degree You Have Received? 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 No [email or web address] Information not available 04/22/2024 Do You Use Protection During Sex? No [email or web address] Information not available 04/22/2024 Do You Use Your Seat Belt Or Car Seat Routinely? Yes Information not available 12/12/2021 Do You Have Smoke And Carbon Monoxide Detectors In Your Home? Yes Information not available 12/12/2021 How Much Tobacco Do You Smoke? No [email or web address] Information not available 04/22/2024 Do You Feel Stressed (tense, Restless, Nervous, Or Anxious, Or Unable To Sleep At Night)? [id number] Information not available 12/12/2021 Do You Use Any Illicit Or Recreational Drugs? No Information not available 12/12/2021 Do You Use Sunscreen Routinely? Yes Information not available 12/12/2021 Has Tobacco Cessation Counseling Been Provided? Yes [email or web address] Information not available 04/22/2024 On What Date Was Tobacco Cessation Counseling Provided? 07/01/2024 [email or web address] Information not available 07/01/2024 Have You Used IV Drugs? No [email or web address] Information not available 04/22/2024 Do You Or Have You Ever Used Any Other Forms Of Tobacco Or Nicotine? Yes [email or web address] Information not available 04/22/2024 Sex: Unknown Functional [...] N Breast Cancer N Blood Transfusion N Lung Disease N Dermatologic Disorders N Defects or Inherited Disease N Breast Problem N Gestational Diabetes N Hematologic disorders N Anesthesia Complications N History of STI N Deep Vein Thrombosis N Polycystic ovary syndrome N Anxiety Disorder Y Autoimmune disease N Arthritis N Polyps N Infertility N History of abnormal pap N Acid Reflux (GERD) Y Cancer N [...] Diagnosis/Indication Diagnosis SNOMED-CT Code Diagnosis ICD10 Code [id number] Radha Carballo [facility] [address] [address] 04/22/2024 11:59:21 04/22/2024 14:05:36 Gestation period, 27 weeks 38849587 Z3A.27 Venereal d isease screening 077636320 Z11.3 Routine an tenatal care 320073066 Z34.[id number] [facility] [address] [address] 05/04/2024 11:01:38 05/04/2024 11:51:07 Gestation period, 29 weeks 75497568 Z3A.29 [id number] Jamee Rodriguez [place] [address],[place] [address] 05/04/2024 12:03:38 05/04/2024 12:29:23 heart deceleration 807995826 O36.8399 [id number] Kerrie Wood [place] [address],[place] [address] 05/04/2024 12:15:48 05/04/2024 17:20:59 Nonreassuring status 066836805 O36.8999 O76 Health Concerns Section Related Observation LastModified by Organization Detai ls LastModified Time None Recorded Concern Status LastModified by Organization Details LastModified Time None Recorded Payers Encounter Date Sequence Insurance Name Policy Number Policy Forbes Covered Member ID Forbes Member ID Guarantor Name 05/04/2024 1 [place] [facility] Yuli Mercado [id number] Yuli Mercado OBGyn Episode Ob Episode Information Episode Created Date Number of Fetuses Patient Bloodtype Patient rh Status Prepregnancy Weight lbs Domestic Partner Domestic Partner Phone Father Name Fax 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 Status 04/22/20 24 1 O Positive [place] OPEN Fetus Data First Name Last Name Admitted to NICU Weight (g) Sex Living Outcome Pediatric Complications Fetus ID Race Codes Race Delivery Type [id number] Problems Problem Notes Problem Name Start Date End Date Resolution Snomed Code Not e Rubella non-immune 697423988 M MR PP Past history of multiple miscarriages 3788504097 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 Mixed anxiety and depressive disorder 252926076 4 EPDS score 15 David Calculation DAVID [...] Weight in lbs Pre/Post Dialysis Refused Weight 209.584528047619 BP Diastolic BP Location Tested BP Systolic BP Type 83 128 Fetus Heart Rate Present A 157 Present Fetus Movement A Yes Comments Patient states that is havin g heartburn, pain in rib area and some BH contractions. ok for tums, pepcid, begin routine prental care moved back from [place], reviewed office, precautions, +FM, GCT today f/u w eeks Flowsheet Date 05/04/2024 Watkins Score Blood Edema Fundus Height Fundus Units Glucose Ketones Leukocytes Nitrite Labor Signs Protein Cervic Dilation Cervic Effacement Cervic Station none Type Weight in lbs Pre/Post Dialysis Refused 213.234389369610 BP Diastolic BP Location Tested BP Systolic [...] Type Weight in lbs Pre/Post Dialysis Refused 220.971844870630 BP Diastolic BP Location Tested BP Systolic BP Type 81 124 Fetus Heart Rate Present Fetus Movement A Yes Comments Patient states that is havin g some light cramping. reviewed US, discussed renal dilation plan rpt in 4 weeks, reviewed vaccines. planning classes at [facility], discussed EIOL an option answered questions f/u 2 weeks Flowsheet Date 06/01/2024 Watkins Score Blood Edema Fundus Height Fundus Units Glucose Ketones Leukocytes Nitrite Labor Signs Protein Cervic Dilation Cervic Effacement Cervic Station 33 cm Type Weight in lbs Pre/Post Dialysis Refused 228.962969882892 BP Diastolic BP Location Tested BP Systolic [...] Type Weight in lbs Pre/Post Dialysis Refused 235.105082767536 BP Diastolic BP Location Tested BP Systolic [...] Type Weight in lbs Pre/Post Dialysis Refused 236.003256418102 BP Diastolic BP Location Tested BP Systolic [...] Weight in lbs Pre/Post Dialysis Refused Weight 236.103720453955 BP Diastolic BP Location Tested BP Systolic [...] Type Weight in lbs Pre/Post Dialysis Refused 244.610883409457 BP Diastolic BP Location Tested BP Systolic [...]
--- OUTSIDE RECORDS SUMMARY | 2024-07-18 06:55 | XMS_ITS | Continuity of Care Document ---
Author Organization [facility] Address [address] [place] [address] [place] [address] Care Team Providers Care Med Admin Name Role Phone JUVENTINO DIGGS Primary Care Provider [phone] Assessment No assessment recorded. Plan of Treatment Reminders Order Date Submit Date Provider Last Modified By Organization Details Last Modified Time Details Appointments None record ed. Lab None record ed. Referral None record ed. Procedures None record ed. Surgeries None record ed. Imaging non-st ress test 024 05/04/20 24 [email or web address] [facility] [address], [place], [address], 08:49:24 Medication Orders None record ed. Patient TargetsNo targets recorded. Patient InstructionsNo instructions recorded. Reason for Referral None Reported. Results Created Date Observation Date Name Description Value Unit Range Abnormal Flag Note LastModifiedBy Organization Detail LastModifiedTime 05/04/20 24 05/04/2024 non-s tress test No observ ation record ed. [email or web address] Douglas [address], [place], [address], 05/04/2024 12:19:11 05/04/20 24 05/04/2024 US, obste tric, follo w-up No observ ation record ed. [email or web address] [address], [place], [address], 05/04/2024 22:27:21 05/04/20 24 05/04/2024 US, obste tric, bioph ysica l profi le No observ ation record ed. [email or web address] [facility] [address], [place], [address], 05/04/2024 17:18:32 05/18/2005/18/2024 US, obste tric, follo w-up No observ ation record ed. [facility] [address], [place], [address], 05/18/2024 18:12:58 05/18/2005/18/2024 US, obste tric, follo w-up No observ ation record ed. [email or web address] [address], [place], [address], 05/20/2024 18:31:50 06/19/2006/19/2024 US, obste tric, follo w-up No observ ation record ed. [email or web address] [address], [place], [address], 06/19/2024 20:46:58 06/19/2006/19/2024 US, obste tric, follo w-up No observ ation record ed. [facility] [address], [place], [address], 06/19/2024 17:04:08 Result Notes None recorded. Problems Name Problem SNOMED Code Status Onset Date Resolution Date Notes Provider Name and Address Organization Details Recorded Time Pregnanc y test negative 298106007 Completed 201412/08/2021 Negative Pregnanc y Test;Pra ctice ID: [address] [facility] 2 11:30:32 Amenorrh ea 03001629 Completed 201412/08/2021 AMENORRH EA;[facility] ID: 0001 [facility] 11:30:31 Routine antenata l care Completed 201412/08/2021 Supervis ion of other normal pregnanc y;Practi ce ID: 0001 [facility] 11:30:31 Pregnanc y test positive 881081781 Completed 201412/08/2021 Positive Pregnanc y Test;Pra ctice ID: 0001 Jamee snyder [facility] 2 11:30:32 Uterine size for dates discrepa ncy 385838357 Completed 201412/08/2021 UTERINE SIZE MARKO-ANTE PAR;Prac lovely ID: 0001 [facility] 2 11:30:32 Threaten ed miscarri age 18971183 Completed 201412/08/2021 Threaten ed , antepart um;Pract ice ID: 0001 [facility] 2 11:30:32 Missed miscarri age 91271140 Completed 201412/08/2021 Missed ;Practic e ID: 0001 Jamee snyder [facility] 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 2 11:30:32 Pelvic and perineal pain 513460462 Completed 201812/08/2021 Pelvic and perineal pain;Pra ctice ID: 0001 Jamee snyder [facility] 2 11:30:32 Finding related to pregnanc y Completed 201812/08/2021 Recurren t pregnanc y loss;Pra ctice ID: 0001 Jamee snyder [facility] 2 11:30:32 Female infertil ity associat ed with anovulat ion 647215303 Completed 201812/08/2021 Female infertil ity associat ed with anovulat ion;Prac lovely ID: 0001 Jamee snyder, [facility] 2 11:30:31 Surveill ance of contrace ption Completed 201812/08/2021 Encounte r for surveill ance of contrace ptives, unspecif ied;Prac lovely ID: 0001 Jamee snyder, [facility] 2 11:30:32 Venereal disease screenin g Completed 201312/08/2021 Screenin g examinat ion for venereal disease; Recorded Elsewher e: No Locat ion: [facility] S ource: EHR Field Assembly Supervisor bee: N Odilonti ce ID: 0001 Ken lable Time: 02:15:[address] [facility] 2 11:30:31 Complete Completed 201312/08/2021 Spontane ous , complete , without mention of complica tion;Rec orded Elsewher e: No Locat ion: [facility] S ource: EHR Field Assembly Supervisor bee: N Odilonti ce ID: 0001 Ken lable Time: 11:45:00 AM Jamee Cruz [facility] 2 11:30:32 Speciali zed medical examinat ion Completed 201312/08/2021 Other specifie d chlamydi al diseases ;Recorde d Elsewher e: No Locat ion: [facility] S ource: EHR Field Assembly Supervisor bee: N Practi ce ID: 0001 Ken lable Time: 02:15:00 PM Jamee Cruz [facility] 2 11:30:32 Adult health examinat ion Completed 201312/08/2021 ROUTINE MEDICAL EXAM;Rec orded Elsewher e: No Locat ion: [facility] S ource: EHR Field Assembly Supervisor bee: N Odilonti ce ID: 0001 Ken lable Time: 02:15:00 PM Jamee Cruz [facility], [facility] 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 2 11:30:32 Oligomen orrhea 95242579 Completed 201412/08/2021 Oligomen orrhea;R ecorded Elsewher e: No Locat ion: [facility] S ource: EHR Field Assembly Supervisor bee: N Emilie ce ID: 0001 Ken lable Time: 06:00:00 PM Jamee Cruz [facility], [facility] 2 11:30:32 Screenin g for malignan t neoplasm of cervix Completed 201312/08/2021 Screenin g for malignan t neoplasm s of the cervix;R ecorded Elsewher e: No Locat ion: [facility] Phan [facility] ID: 0001 Ken lable Time: 02:15:00 PM Jamee Cruz [facility], [facility] 2 11:30:31 Pregnanc y 48055902 Active 2023 Marian Valdez [facility], [facility] 4 13:31:50 Mixed anxiety and depressi ve disorder 398126979 Active 4 EPDS score 15 Marian Valdez [facility], [facility] 4 13:32:54 Past pregnanc y history of multiple miscarri ages Active former partner had transloc ation Radhakendy Carbalol CNM [address], [place], [address], [facility] 4 14:03:22 Rubella non-immu ne 982735910 Active MMR PP Jessica snyder, [facility] 4 10:33:54 Rubella non-immu ne 103742523 Active MMR PP Jessica snyder, [facility] 4 10:33:54 Problem Notes None recorded. Procedures Surgical History Date Name Laterality Status Provider Name and Address Organization Details Recorded Time 2 Date of Last Pap Smear completed Mariankalyan Valdez [facility] 04/22/2024 13:24:55 1 extraction of wisdom tooth completed Mariankalyan Valdez [facility] 04/22/2024 13:29:15 Imaging Results Imaging Date Name Status LastModified by Organiz ation Details LastModified Time 05/04/2024 non-stress test completed [email or web address] [facility] [address], [place], [address], 05/04/2024 12:19:11 Procedure Notes None recorded. Medical Equipment None [...] Locat ion: [facility] M odify By: kenneth angulo DateTime : 02/15/20 15 03:15:00 PM Not Available Not Available Not Available clomiphen e citrate 50 mg tablet take 1 Tablet by oral route every day for 5 days days 3-7 of cycle 01/30 completed Prescrib ed Elsewher e: No Locat ion: [place] [facility] odify By: rianna flores DateTime : 01/27/20 [...] e: Yes Loca tion: [facility] [place] [facility] odify By: [email or web address] trick En counter DateTime : 07/15/20 13 09:45:00 AM Not Available Not Available Not Available Provera 10 mg tablet take 1 tablet by oral route every day 01/12 completed Prescrib ed Elsewher e: No Locat ion: [place] [facility] odify By: dmrose E ncounter DateTime : [...] Prescrib ed Elsewher e: Yes [facility] By: adminnew Encount er DateTime : 07/15/20 13 09:45:00 AM Not Available Not Available Not Available Raoul-C DHA 35 mg-1 mg-200 mg capsule take 1 capsule by oral route every day 01/03 completed Prescrib ed Elsewher e: No Locat ion: [facility] odify By: [email or web address] trick En counter DateTime : 04/30/20 14 02:15:00 PM Not Available Not Available Not Available 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 4 11:39:14 Social History Question Answer Notes LastModified by Organizat ion Details LastModified Time Tobacco Smoking Status Current Some Day Smoker Jamee snyder, [facility] 12/12/2021 11:03:45 What Is Your Level Of Alcohol Consumption? None [email or web address] Information not available 04/22/2024 If You Are , What Was Your Level Of Alcohol Consumption Prior To ? Occasional [email or web address] Information not available 04/22/2024 Are You Blind Or Do You Have Difficulty Seeing? No Information not available 12/12/2021 What Is Your Level Of Caffeine Consumption? Occasional Information not available 12/12/2021 In The 14 Days Before Symptom Onset, Have You Had Close Contact With A Laboratory-confir med COVID-19 While That Case Was Ill? No [email or web address] Information not available 04/22/2024 In The 14 Days Before Symptom Onset, Have You Had Close Contact With A Person Who Is Under Investigation For COVID-19 While That Person Was Ill? No [email or web address] Information not available 04/22/2024 Have You Been [...] Or The Highest Degree You Have Received? 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 No [email or web address] Information not available 04/22/2024 Do You Use Protection During Sex? No [email or web address] Information not available 04/22/2024 Do You Use Your Seat Belt Or Car Seat Routinely? Yes Information not available 12/12/2021 Do You Have Smoke And Carbon Monoxide Detectors In Your Home? Yes Information not available 12/12/2021 How Much Tobacco Do You Smoke? No [email or web address] Information not available 04/22/2024 Do You Feel Stressed (tense, Restless, Nervous, Or Anxious, Or Unable To Sleep At Night)? [id number] Information not available 12/12/2021 Do You Use Any Illicit Or Recreational Drugs? No Information not available 12/12/2021 Do You Use Sunscreen Routinely? Yes Information not available 12/12/2021 Has Tobacco Cessation Counseling Been Provided? Yes [email or web address] Information not available 04/22/2024 On What Date Was Tobacco Cessation Counseling Provided? 07/01/2024 [email or web address] Information not available 07/01/2024 Have You Used IV Drugs? No [email or web address] Information not available 04/22/2024 Do You Or [...] (Food, seasonal, environmental ) N Other N Blood Transfusion N Breast Cancer N Drug/Latex Allergies/Reactions N Lung Disease N Dermatologic Disorders N [...] Diagnosis/Indication Diagnosis SNOMED-CT Code Diagnosis ICD10 Code 509487 [facility] [address],[place] [address] 04/22/2024 11:59:21 04/22/2024 14:05:36 Gestation period, 27 weeks 13874517 Z3A.27 Venereal d isease screening 649757386 Z11.3 Routine an tenatal care 473259670 Z34.90 [id number] [facility] [address],[place] [address] 05/04/2024 11:01:38 05/04/2024 11:51:07 Gestation period, 29 weeks 08852125 Z3A.29 [id number] Jamee Rodriguez [facility] [address],[place] [address] 05/04/2024 12:03:38 05/04/2024 12:29:23 heart deceleration 573192002 O36.8399 [id number] Kerrie Wood [facility] [address],[place] [address] 05/04/2024 12:15:48 05/04/2024 17:20:59 Nonreassuring status 278980154 O36.8999 O76 Health Concerns Section Related Observation LastModified by Organization Detai ls LastModified Time None Recorded Concern Status LastModified by Organization Details LastModified Time None Recorded Payers Encounter Date Sequence Insurance Name Policy Number Policy Forbes Covered Member ID Forbes Member ID Guarantor Name 05/04/2024 1 [place] [facility] OF PUBLIC AID Yuli Mrecado [id number] Yuli Mercado OBGyn Episode Ob Episode Information Episode Created Date Number of Fetuses Patient Bloodtype Patient rh Status Prepregnancy Weight lbs Domestic Partner Domestic Partner Phone Father Name Molder Trimmer Status 04/22/20 24 1 O Positive [place] OPEN Fetus Data First Name Last Name Admitted to NICU Weight (g) Sex Living Outcome Pediatric Complications Fetus ID Race Codes Race Delivery Type [id number] Problems Problem Notes Problem Name Start Date End Date Resolution Snomed Code Not e Rubella non-immune [id number] M MR BHATTI Past history of multiple miscarriages 1829265866 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 Mixed anxiety and depressive disorder 233013918 4 EPDS score 15 David Calculation DAVID [...] Weight in lbs Pre/Post Dialysis Refused Weight 209.997255843863 BP Diastolic BP Location Tested BP Systolic BP Type 83 128 Fetus Heart Rate Present A 157 Present Fetus Movement A Yes Comments Patient states that is havin g heartburn, pain in rib area and some BH contractions. ok for tums, pepcid, begin routine prental care moved back from [place], reviewed office, precautions, +FM, GCT today f/u w eeks Flowsheet Date 05/04/2024 Watkins Score Blood Edema Fundus Height Fundus Units Glucose Ketones Leukocytes Nitrite Labor Signs Protein Cervic Dilation Cervic Effacement Cervic Station none Type Weight in lbs Pre/Post Dialysis Refused 213.078564520885 BP Diastolic BP Location Tested BP Systolic [...] Type Weight in lbs Pre/Post Dialysis Refused 220.064794077684 BP Diastolic BP Location Tested BP Systolic BP Type 81 124 Fetus Heart Rate Present Fetus Movement A Yes Comments Patient states that is havin g some light cramping. reviewed US, discussed renal dilation plan rpt in 4 weeks, reviewed vaccines. planning classes at [place], discussed EIOL an option answered questions f/u 2 weeks Flowsheet Date 06/01/2024 Watkins Score Blood Edema Fundus Height Fundus Units Glucose Ketones Leukocytes Nitrite Labor Signs Protein Cervic Dilation Cervic Effacement Cervic Station 33 cm Type Weight in lbs Pre/Post Dialysis Refused 228.591114565528 BP Diastolic BP Location Tested BP Systolic [...] Type Weight in lbs Pre/Post Dialysis Refused 235.058625514092 BP Diastolic BP Location Tested BP Systolic [...] Type Weight in lbs Pre/Post Dialysis Refused 236.662292927725 BP Diastolic BP Location Tested BP Systolic [...] Weight in lbs Pre/Post Dialysis Refused Weight 236.319276828685 BP Diastolic BP Location Tested BP Systolic [...] Type Weight in lbs Pre/Post Dialysis Refused 244.402047037521 BP Diastolic BP Location Tested BP Systolic [...]
--- OUTSIDE RECORDS SUMMARY | 2024-07-18 06:55 | XMS_ITS | Continuity of Care Document ---
Author Organization [facility] Address [address] [place] [address] [place] [address] Care Team Providers Care Coloring Room Worker Name Role Phone JUVENTINO DIGGS Primary Care Provider [phone] Assessment No assessment recorded. Plan of Treatment Reminders Order Date Submit Date Provider Last Modified By Organization Details Last Modified Time Details Appointments None record ed. Lab None record ed. Referral None record ed. Procedures None record ed. Surgeries None record ed. Imaging US, obstet nia, follow -up 024 05/18/20 24 [email or web address] [place], [address], [place], [address], 21:35:02 Medication Orders None record ed. Patient TargetsNo targets recorded. Patient InstructionsNo instructions recorded. Reason for Referral None Reported. Results Created Date Observation Date Name Description Value Unit Range Abnormal Flag Note LastModifiedBy Organization Detail LastModifiedTime 05/04/2005/04/2024 non-s tress test No observ ation record ed. [email or web address] [place] [address], [place], [address], 05/04/2024 12:19:11 05/04/20 24 05/04/2024 US, obste tric, follo w-up No observ ation record ed. [email or web address] [address], [place], [address], 05/04/2024 22:27:21 05/04/20 24 05/04/2024 US, obste tric, bioph ysica l profi le No observ ation record ed. [email or web address] [place] [address], [place], [address], 05/04/2024 17:18:32 05/18/20 24 05/18/2024 US, obste tric, follo w-up No observ ation record ed. [facility] [address], [place], [address], 05/18/2024 18:12:58 05/18/2005/18/2024 US, obste tric, follo w-up No observ ation record ed. [email or web address] [address], [place], [address], 05/20/2024 18:31:50 06/19/20 24 06/19/2024 US, obste tric, follo w-up No observ ation record ed. [email or web address] [address], [place], [address], 06/19/2024 20:46:58 06/19/2006/19/2024 US, obste tric, follo w-up No observ ation record ed. [facility] [address], [place], [address], 06/19/2024 17:04:08 Result Notes None recorded. Problems Name Problem SNOMED Code Status Onset Date Resolution Date Notes Provider Name and Address Organization Details Recorded Time Pregnanc y test negative 570048338 Completed 201412/08/2021 Negative Pregnanc y Test;Pra ctice ID: 0001 Jamee Cruz [facility] 2 11:30:32 Amenorrh ea 79392641 Completed 201412/08/2021 AMENORRH EA;Pract ice ID: 0001 [facility] 11:30:31 Routine antenata l care Completed 201412/08/2021 Supervis ion of other normal pregnanc y;Practi ce ID: 0001 Jamee snyder [facility] 2 11:30:31 Pregnanc y test positive 613208265 Completed 201412/08/2021 Positive Pregnanc y Test;Pra ctice ID: 0001 Jamee snyder [facility] 2 11:30:32 Uterine size for dates discrepa ncy 619446020 Completed 201412/08/2021 UTERINE SIZE MARKO-ANTE PAR;Prac lovely ID: 0001 Jamee snyder [facility] 2 11:30:32 Threaten ed miscarri age 06119544 Completed 201412/08/2021 Threaten ed , antepart um;Pract ice ID: 0001 Jamee Cruz [facility] 2 11:30:32 Missed miscarri age 68710146 Completed 201412/08/2021 Missed ;Practic e ID: 0001 Jamee snyder [facility] 2 11:30:[address] Concept Completed 201812/08/2021 Encntr for baker helper exam (general ) (routine ) w/o abn findings ;Practic e ID: 0001 Jamee snyder [facility] 2 11:30:32 Pelvic and perineal pain 468968145 Completed 201812/08/2021 Pelvic and perineal pain;Pra ctice ID: 0001 Jamee snyder [facility] 2 11:30:32 Finding related to pregnanc y Completed 201812/08/2021 Recurren t pregnanc y loss;Pra ctice ID: 0001 Jamee snyder [facility] 2 11:30:32 Female infertil ity associat ed with anovulat ion 289944264 Completed 201812/08/2021 Female infertil ity associat ed with anovulat ion;Prac lovely ID: 0001 Jamee Cruz [facility], [facility] 2 11:30:31 Surveill ance of contrace ption Completed 201812/08/2021 Encounte r for surveill ance of contrace ptives, unspecif ied;Prac lovely ID: 0001 Jamee Cruz [facility], [facility] 2 11:30:32 Venereal disease screenin g Completed 201312/08/2021 Screenin g examinat ion for venereal disease; Recorded Elsewher e: No Locat ion: [facility] S ource: EHR Shingles Roofer bee: N [place] ID: 0001 Ken lable Time: 02:15:00 PM Jamee Cruz [facility] 2 11:30:31 Complete Completed 201312/08/2021 Spontane ous , complete , without mention of complica tion;Rec orded Elsewher e: No Locat ion: [facility] S ource: EHR Shingles Roofer bee: N [place] ID: 0001 Ken lable Time: 11:45:00 AM Jamee Cruz [facility] 2 11:30:32 Speciali zed medical examinat ion Completed 201312/08/2021 Other specifie d chlamydi al diseases ;Recorde d Elsewher e: No Locat ion: [facility] S ource: EHR Shingles Roofer bee: N [place] ID: 0001 Ken lable Time: 02:15:00 PM Jamee Cruz [facility] 2 11:30:32 Adult health examinat ion Completed 201312/08/2021 ROUTINE MEDICAL EXAM;Rec orded Elsewher e: No [facility]: EHR Shingles Roofer bee: N [place] ID: 0001 Ken lable Time: 02:15:00 PM Jamee Cruz [facility], [facility] 2 11:30:32 Speciali zed medical examinat ion Completed 201312/08/2021 ROUTINE CUSTOMER ASSISTANCE REPRESENTATIVE EXAMINAT ION;Ramone rded Elsewher e: No Locat ion: [facility] S ource: EHR Shingles Roofer bee: N [place] ID: 0001 Ken lable Time: 02:15:00 PM Jamee Cruz [facility], [facility] 2 11:30:32 Oligomen orrhea [id number] Completed 201412/08/2021 Oligomen orrhea;R ecorded Elsewher e: No Locat ion: [facility] S ource: EHR Shingles Roofer bee: N [place] ID: 0001 Ken lable Time: 06:00:00 PM Jamee Cruz [facility], [facility] 2 11:30:32 Screenin g for malignan t neoplasm of cervix Completed 201312/08/2021 Screenin g for malignan t neoplasm s of the cervix;R ecorded Elsewher e: No Locat ion: [facility] [place] ID: 0001 Ken lable Time: 02:15:00 PM Jamee Cruz [facility], [facility] 2 11:30:31 Pregnanc y 24224285 Active 2023 Marian Valdez null, [facility] 4 13:31:50 Mixed anxiety and depressi ve disorder 790702204 Active 4 EPDS score 15 Marian Valdez null, [facility] 4 13:32:54 Past pregnanc y history of multiple miscarri ages Active former partner had transloc ation Radha Carballo CNM [address], [place], [address], [place] [facility] 4 14:03:22 Rubella non-immu ne 290971486 Active MMR PP Jessica Rae null, [facility] 4 10:33:54 Rubella non-immu ne 841302740 Active MMR PP Jessica Rae null, [facility] 4 10:33:54 Problem Notes None recorded. Procedures Surgical History Date Name Laterality Status Provider Name and Address Organization Details Recorded Time 2 Date of Last Pap Smear completed Mariankalyan Valdez [facility] 04/22/2024 13:24:55 1 extraction of wisdom tooth completed Mariankalyan Valdez [facility] 04/22/2024 13:29:15 Imaging Results Imaging Date Name Status LastModified by [facility] Details LastModified Time 05/18/2024 US, obstetric, follow-up completed [facility] [address], [place], [address], 05/18/2024 18:12:58 05/18/2024 US, obstetric, follow-up completed [address], [place], [address], 05/20/2024 18:31:50 Procedure Notes None recorded. Medical Equipment None [...] e: No Locat ion: [place] [facility] odify By: kenneth angulo DateTime : 02/15/20 15 03:15:00 PM Not Available Not Available Not Available clomiphen e citrate 50 mg tablet take 1 Tablet by oral route every day for 5 days days 3-7 of cycle 01/30 completed Prescrib ed Elsewher e: No Locat ion: [place] ann[facility] odify By: rianna flores DateTime : [...] Prescrib ed Elsewher e: Yes [facility] odify By: [email or web address] chey En counter DateTime : 07/15/20 13 09:45:00 AM Not Available Not Available Not Available Provera 10 mg tablet take 1 tablet by oral route every day 01/12 completed Prescrib ed Elsewher e: No Locat ion: [facility] odify By: dmrose E ncounter DateTime [...] Prescrib ed Elsewher e: Yes Loca tion: [facility] annamarie [facility] odify By: ángel Bacon er DateTime : 07/15/20 13 09:45:00 AM Not Available Not Available Not Available Raoul-C DHA 35 mg-1 mg-200 mg capsule take 1 capsule by oral route every day 01/03 completed Prescrib ed Elsewher e: No Locat ion: [facility] odify By: [email or web address] chey En counter DateTime : 04/30/20 14 02:15:00 PM Not Available Not Available Not Available 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 04/22 completed Not Available Not Available Not Available Vitals None Recorded Social History Question Answer Notes LastModified by Organizat ion Details LastModified Time Tobacco Smoking Status Current Some Day Smoker Jamee Cruz [facility] 12/12/2021 11:03:45 What Is Your Level Of Alcohol Consumption? None [email or web address] Information not available 04/22/2024 If You Are [...] COVID-19 While That Case Was Ill? No [email or web address] Information not available 04/22/2024 In The 14 Days Before Symptom Onset, Have You Had Close Contact With A Person Who Is Under Investigation For COVID-19 While That Person Was Ill? No [email or web address] Information not available 04/22/2024 Have You Been To An Area Known To Be High Risk For COVID-19? No [email or web address] Information not available 04/22/2024 Are You Deaf Or Do You Have Serious Difficulty Hearing? No Information not available 12/12/2021 What Type Of Diet Are You Following? REGULAR Information not available 12/12/2021 What Is The Highest Grade Or Level Of School You Have Completed Or The Highest Degree You Have Received? 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 No Information not available 04/22/2024 Do You Use Protection During Sex? No [email or web address] Information not available 04/22/2024 Do You Use Your Seat Belt Or Car Seat Routinely? Yes Information not available 12/12/2021 Do You Have Smoke And Carbon Monoxide Detectors In Your Home? Yes Information not available 12/12/2021 How Much Tobacco Do You Smoke? No [email or web address] Information not available 04/22/2024 Do You Feel Stressed (tense, Restless, Nervous, Or Anxious, Or Unable To Sleep At Night)? [id number] Information not available 12/12/2021 Do You Use Any Illicit Or Recreational Drugs? No Information not available 12/12/2021 Do You Use Sunscreen Routinely? Yes Information not available 12/12/2021 Has Tobacco Cessation Counseling Been Provided? Yes [email or web address] Information not available 04/22/2024 On What Date Was Tobacco Cessation Counseling Provided? 07/01/2024 [email or web address] Information not available 07/01/2024 Have You Used IV Drugs? No [email or web address] Information not available 04/22/2024 Do You Or Have You Ever Used Any Other Forms Of Tobacco Or Nicotine? Yes [email or web address] Information not available 04/22/2024 Sex: Unknown Functional [...] N Breast Cancer N Drug/Latex Allergies/Reactions N Dermatologic Disorders N Lung Disease N [...] Diagnosis/Indication Diagnosis SNOMED-CT Code Diagnosis ICD10 Code 359380 [facility] [address],[place] [address] 04/22/2024 11:59:21 04/22/2024 14:05:36 Gestation period, 27 weeks 39024168 Z3A.27 Venereal d isease screening 695293005 Z11.3 Routine an tenatal care 206495602 Z34.90 [id number] Radha Carballo [facility] [address],[place] [address] 05/04/2024 11:01:38 05/04/2024 11:51:07 Gestation period, 29 weeks 44853692 Z3A.29 [id number] Jamee Rodriguez [place] [address],[place] [address] 05/04/2024 12:03:38 05/04/2024 12:29:23 heart deceleration 816615938 O36.8399 [id number] Kerrie Wood [place] [address],[place] [address] 05/04/2024 12:15:48 05/04/2024 17:20:59 Nonreassuring status 989625844 O36.8999 O76 [id number] [facility] [address] [address] 05/18/2024 17:06:31 05/18/2024 18:06:32 Medical examination for suspected condition 527067322 Z03.74 Z3A.31 Health Concerns Section Related Observation LastModified by Organization Detai ls LastModified Time None Recorded Concern Status LastModified by Organization Details LastModified Time None Recorded Payers Encounter Date Sequence Insurance Name Policy Number Policy Forbes Covered Member ID Forbes Member ID Guarantor Name 05/18/2024 1 [place] [employer] [facility] [employer] Yuli Mercado [id number] Yuli Mercado OBGyn Episode Ob Episode Information Episode Created Date Number of Fetuses Patient Bloodtype Patient rh Status Prepregnancy Weight lbs Domestic Partner Domestic Partner Phone Father Name Supervisor Soakers Status 04/22/20 24 1 O Positive [place] OPEN Fetus Data First Name Last Name Admitted to NICU Weight (g) Sex Living Outcome Pediatric Complications Fetus ID Race Codes Race Delivery Type [id number] Problems Problem Notes Problem Name Start Date End Date Resolution Snomed Code Not e Rubella non-immune 211408466 M MR BHATTI Past history of multiple miscarriages 5839516810 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 ok for tums, pepcid, begin routine prental care moved back from [place], reviewed office, precautions, +FM, GCT today f/u w eeks Flowsheet Date 05/04/2024 Watkins Score Blood Edema Fundus Height Fundus Units Glucose Ketones Leukocytes Nitrite Labor Signs Protein Cervic Dilation Cervic Effacement Cervic Station none Type Weight in lbs Pre/Post Dialysis Refused 213.281600588759 BP Diastolic BP Location Tested BP Systolic [...] Type Weight in lbs Pre/Post Dialysis Refused 220.304377137371 BP Diastolic BP Location Tested BP Systolic BP Type 81 124 Fetus Heart Rate Present Fetus Movement A Yes Comments Patient states that is havin g some light cramping. reviewed US, discussed renal dilation plan rpt in 4 weeks, reviewed vaccines. planning classes at [place], discussed EIOL an option answered questions f/u 2 weeks Flowsheet Date 06/01/2024 Watkins Score Blood Edema Fundus Height Fundus Units Glucose Ketones Leukocytes Nitrite Labor Signs Protein Cervic Dilation Cervic Effacement Cervic Station 33 cm Type Weight in lbs Pre/Post Dialysis Refused 228.841735325300 BP Diastolic BP Location Tested BP Systolic [...] Type Weight in lbs Pre/Post Dialysis Refused 235.213258697401 BP Diastolic BP Location Tested BP Systolic [...] Type Weight in lbs Pre/Post Dialysis Refused 236.959515950325 BP Diastolic BP Location Tested BP Systolic [...] Weight in lbs Pre/Post Dialysis Refused Weight 236.247847512690 BP Diastolic BP Location Tested BP Systolic [...] Type Weight in lbs Pre/Post Dialysis Refused 244.103809776396 BP Diastolic BP Location Tested BP Systolic [...]
--- OUTSIDE RECORDS SUMMARY | 2024-07-18 06:55 | XMS_ITS | Continuity of Care Document ---
Author Organization [facility] Address [address] [place] [address] [place] [address] Care Team Providers Care Health Care Consultant Name Role Phone JUVENTINO DIGGS Primary Care Provider [phone] Assessment No assessment recorded. Plan of Treatment Reminders Order Date Submit Date Provider Last Modified By Organization Details Last Modified Time Details Appointments None recorded. Lab None recorded. Referral None recorded. Procedures None recorded. Surgeries None recorded. Imaging US, obstetric, biophysical profile 2023 024 [email or web address] [facility], [address], [address], [place], [address], 17:20:59 Medication Orders None recorded. Patient TargetsNo targets recorded. Patient InstructionsNo instructions recorded. Reason for Referral None Reported. Results Created Date Observation Date Name Description Value Unit Range Abnormal Flag Note LastModifiedBy Organization Detail LastModifiedTime 05/04/2005/04/2024 non-s tress test No observ ation record ed. [email or web address] [facility] [address], [place], [address], 05/04/2024 12:19:11 05/04/2005/04/2024 US, obste tric, follo w-up No observ ation record ed. [email or web address] [address] [address], [place], [address], 05/04/2024 22:27:21 05/04/20 24 05/04/2024 US, obste tric, bioph ysica l profi le No observ ation record ed. [email or web address] [facility] [address], [place], [address], 05/04/2024 17:18:32 05/18/2005/18/2024 US, obste tric, follo w-up No observ ation record ed. [facility] [address], [place], [address], 05/18/2024 18:12:58 05/18/2005/18/2024 US, obste tric, follo w-up No observ ation record ed. [address], [place], [address], 05/20/2024 18:31:50 06/19/20 24 06/19/2024 US, obste tric, follo w-up No observ ation record ed. [email or web address] [address] [address], [place], [address], 06/19/2024 20:46:58 06/19/2006/19/2024 US, obste tric, follo w-up No observ ation record ed. [facility] [address], [place], [address], 06/19/2024 17:04:08 Result Notes None recorded. Problems Name Problem SNOMED Code Status Onset Date Resolution Date Notes Provider Name and Address Organization Details Recorded Time Pregnanc y test negative 028929876 Completed 201412/08/2021 Negative Pregnanc y Test;Pra ctice ID: 0001 Jamee snyder [facility] 2 11:30:32 Amenorrh ea 36983323 Completed 201412/08/2021 AMENORRH EA;Pract ice ID: 0001 Jamee snyder [facility] 2 11:30:31 Routine antenata l care Completed 201412/08/2021 Supervis ion of other normal pregnanc y;Practi ce ID: 0001 Jamee snyder, [facility] 2 11:30:31 Pregnanc y test positive 560187206 Completed 201412/08/2021 Positive Pregnanc y Test;Pra ctice ID: 0001 Jamee snyder, [facility] 2 11:30:32 Uterine size for dates discrepa ncy 904615475 Completed 201412/08/2021 UTERINE SIZE MARKO-ANTE PAR;Prac lovely ID: 0001 Jamee snyder, [facility] 2 11:30:32 Threaten ed miscarri age 01046397 Completed 201412/08/2021 Threaten ed , antepart um;[facility] ice ID: 0001 [facility] 11:30:32 Missed miscarri age 71693228 Completed 201412/08/2021 Missed ;Practic e ID: 0001 Jamee snyder, [facility] 2 11:30:[address] Concept Completed 201812/08/2021 Encntr for consumer marketing manager exam (general ) (routine ) w/o abn findings ;Practic e ID: 0001 Jamee snyder, [facility] 2 11:30:32 Pelvic and perineal pain 784136547 Completed 201812/08/2021 Pelvic and perineal pain;Pra ctice ID: 0001 Jamee snyder, [facility] 2 11:30:32 Finding related to pregnanc y Completed 201812/08/2021 Recurren t pregnanc y loss;Pra ctice ID: 0001 Jamee snyder, [facility] 2 11:30:32 Female infertil ity associat ed with anovulat ion 970266239 Completed 201812/08/2021 Female infertil ity associat ed with anovulat ion;Prac lovely ID: 0001 Jamee Cruz [facility], [facility] 2 11:30:31 Surveill ance of contrace ption Completed 201812/08/2021 Encounte r for surveill ance of contrace ptives, unspecif ied;Prac lovely ID: 0001 Jamee Cruz [facility], [facility] 2 11:30:32 Venereal disease screenin g Completed 201312/08/2021 Screenin g examinat ion for venereal disease; Recorded Elsewher e: No Locat ion: [facility] S ource: EHR Machine Stamper bee: N Odilonti ce ID: 0001 Ken lable Time: 02:15:00 PM Jamee Cruz [facility] 2 11:30:31 Complete Completed 201312/08/2021 Spontane ous , complete , without mention of complica tion;Rec orded Elsewher e: No Locat ion: [facility] S ource: EHR Machine Stamper bee: N Practi ce ID: 0001 Ken lable Time: 11:45:00 AM Jamee Cruz [facility] 2 11:30:32 Speciali zed medical examinat ion Completed 201312/08/2021 Other specifie d chlamydi al diseases ;Recorde d Elsewher e: No Locat ion: [facility] S ource: EHR Machine Stamper bee: N Practi ce ID: 0001 Ken lable Time: 02:15:00 PM Jamee Cruz [facility] 2 11:30:32 Adult health examinat ion Completed 201312/08/2021 ROUTINE MEDICAL EXAM;Rec orded Elsewher e: No Locat ion: [facility] S ource: EHR Machine Stamper bee: N Odilonti ce ID: 0001 Ken lable Time: 02:15:00 PM Jamee Cruz [facility], [facility] 2 11:30:32 Speciali zed medical examinat ion Completed 201312/08/2021 ROUTINE DENTAL HYGIENIST EXAMINAT ION;Ramone rded Elsewher e: No Locat ion: [facility] S ource: EHR Machine Stamper bee: N Odilonti ce ID: 0001 Ken lable Time: 02:15:00 PM Jamee Cruz [facility], [facility] 2 11:30:32 Oligomen orrhea [id number] Completed 201412/08/2021 Oligomen orrhea;R ecorded Elsewher e: No Locat ion: [facility] S ource: EHR Machine Stamper bee: N Emilie ce ID: 0001 Ken lable Time: 06:00:00 PM Jamee Cruz [facility], [facility] 2 11:30:32 Screenin g for malignan t neoplasm of cervix Completed 201312/08/2021 Screenin g for malignan t neoplasm s of the cervix;R ecorded Elsewher e: No Locat ion: [facility] S ource: EHR Machine Stamper bee: N Odilonti ce ID: 0001 Ken lable Time: 02:15:00 PM Jamee Cruz [facility], [facility] 2 11:30:31 Pregnanc y 70032560 Active 2023 Marian Valdez [facility], [facility] 4 13:31:50 Mixed anxiety and depressi ve disorder 558602485 Active 4 EPDS score 15 Marian Valdez [facility], [facility] 4 13:32:54 Past pregnanc y history of multiple miscarri ages Active former partner had transloc ation Radha Carballo, CN [address], [place], [address], [place] [facility] 4 14:03:22 Rubella non-immu ne 903808301 Active MMR PP Jessica snyder, [facility] 4 10:33:54 Rubella non-immu ne 890503863 Active MMR PP Jessica snyder, [facility] 4 10:33:54 Problem Notes None recorded. Procedures Surgical History Date Name Laterality Status Provider Name and Address Organization Details Recorded Time 2 Date of Last Pap Smear completed Mariankalyan Valdez [facility] 04/22/2024 13:24:55 1 [facility] 13:29:15 Imaging Results Imaging Date Name Status LastModified by Organiz ation Details LastModified Time 05/04/2024 US, obstetric, biophysical profile completed [email or web address] [facility] [address], [place], [address], 05/04/2024 17:18:32 Procedure Notes None recorded. Medical Equipment None [...] e: No Locat ion: [place] Mariela odify By: kenneth angulo DateTime : 02/15/20 15 03:15:00 PM Not Available Not Available Not Available clomiphen e citrate 50 mg tablet take 1 Tablet by oral route every day for 5 days days 3-7 of cycle 01/30 completed Prescrib ed Elsewher e: No Locat ion: [place] [facility] odify By: rianna flores DateTime : 01/27/20 [...] Prescrib ed Elsewher e: Yes [facility] By: [email or web address] trick En counter DateTime : 07/15/20 13 09:45:00 AM Not Available Not Available Not Available Provera 10 mg tablet take 1 tablet by oral route every day 01/12 completed Prescrib ed Elsewher e: No Locat ion: [facility] odify By: dmrose E ncounter DateTime [...] Prescrib ed Elsewher e: Yes Loca tion: [facility] M odify By: adminnew Encount er DateTime : 07/15/20 13 09:45:00 AM Not Available Not Available Not Available Raoul-C DHA 35 mg-1 mg-200 mg capsule take 1 capsule by oral route every day 01/03 completed Prescrib ed Elsewher e: No Locat ion: [facility] odify By: [email or web address] trick En counter DateTime : 04/30/20 14 02:15:00 PM Not Available Not Available Not Available 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 4 11:39:14 Social History Question Answer Notes LastModified by Organizat ion Details LastModified Time Tobacco Smoking Status Current Some Day Smoker Jamee snyder, [facility] 12/12/2021 11:03:45 What Is Your Level Of Alcohol Consumption? None [email or web address] Information not available 04/22/2024 If You Are , What Was Your Level Of Alcohol Consumption Prior To ? Occasional [email or web address] Information not available 04/22/2024 Are You Blind [...] COVID-19 While That Person Was Ill? No [email or web address] Information not available 04/22/2024 Have You Been To An Area Known To Be High Risk For COVID-19? No [email or web address] Information not available 04/22/2024 Are You Deaf Or Do You Have Serious Difficulty Hearing? No Information not available 12/12/2021 What Type Of Diet Are You Following? REGULAR Information not available 12/12/2021 What Is The Highest Grade Or Level Of School You Have Completed Or The Highest Degree You Have Received? 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 No [email or web address] Information not available 04/22/2024 Do You Use Protection During Sex? No [email or web address] Information not available 04/22/2024 Do You Use Your Seat Belt Or Car Seat Routinely? Yes Information not available 12/12/2021 Do You Have Smoke And Carbon Monoxide Detectors In Your Home? Yes Information not available 12/12/2021 How Much Tobacco Do You Smoke? No [email or web address] Information not available 04/22/2024 Do You Feel Stressed (tense, Restless, Nervous, Or Anxious, Or Unable To Sleep At Night)? [id number] Information not available 12/12/2021 Do You Use Any Illicit Or Recreational Drugs? No Information not available 12/12/2021 Do You Use Sunscreen Routinely? Yes Information not available 12/12/2021 Has Tobacco Cessation Counseling Been Provided? Yes [email or web address] Information not available 04/22/2024 On What Date Was Tobacco Cessation Counseling Provided? 07/01/2024 [email or web address] Information not available 07/01/2024 Have You Used IV Drugs? No [email or web address] Information not available 04/22/2024 Do You Or Have You Ever Used Any Other Forms Of Tobacco Or Nicotine? Yes [email or web address] Information not available 04/22/2024 Sex: Unknown Functional [...] N Drug/Latex Allergies/Reactions N Blood Transfusion N Lung Disease N [...] Diagnosis/Indication Diagnosis SNOMED-CT Code Diagnosis ICD10 Code [id number] Radha Carballo [facility] [address],[place] [address] 04/22/2024 11:59:21 04/22/2024 14:05:36 Gestation period, 27 weeks 12983591 Z3A.27 Venereal d isease screening 861171995 Z11.3 Routine an tenatal care 961170596 Z34.90 [id number] Radha Carballo [facility] [address],[place] [address] 05/04/2024 11:01:38 05/04/2024 11:51:07 Gestation period, 29 weeks 39176697 Z3A.29 [id number] Jamee Rodriguez [facility] [address],[place] [address] 05/04/2024 12:03:38 05/04/2024 12:29:23 heart deceleration 505706957 O36.8399 [id number] Kerrie Wood [facility] [address],[place] [address] 05/04/2024 12:15:48 05/04/2024 17:20:59 Nonreassuring status 871273977 O36.8999 O76 Health Concerns Section Related Observation LastModified by Organization Detai ls LastModified Time None Recorded Concern Status LastModified by Organization Details LastModified Time None Recorded Payers Encounter Date Sequence Insurance Name Policy Number Policy Forbes Covered Member ID Forbes Member ID Guarantor Name 05/04/2024 1 [place] [facility] Yuli Mercado [id number] Yuli Mercado OBGyn Episode Ob Episode Information Episode Created Date Number of Fetuses Patient Bloodtype Patient rh Status Prepregnancy Weight lbs Domestic Partner Domestic Partner Phone Father Name Regional Clinical Director Status 04/22/20 24 1 O Positive [place] OPEN Fetus Data First Name Last Name Admitted to NICU Weight (g) Sex Living Outcome Pediatric Complications Fetus ID Race Codes Race Delivery Type [id number] Problems Problem Notes Problem Name Start Date End Date Resolution Snomed Code Not e Rubella non-immune 519583118 M MR BHATTI Past history of multiple miscarriages 0813638378 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 Mixed anxiety and depressive disorder 861863174 4 EPDS score 15 David Calculation DAVID [...] Weight in lbs Pre/Post Dialysis Refused Weight 209.755987846519 BP Diastolic BP Location Tested BP Systolic BP Type 83 128 Fetus Heart Rate Present A 157 Present Fetus Movement A Yes Comments Patient states that is havin g heartburn, pain in rib area and some BH contractions. ok for tums, pepcid, begin routine prental care moved back from [place], reviewed office, precautions, +FM, GCT today f/u w eeks Flowsheet Date 05/04/2024 Watkins Score Blood Edema Fundus Height Fundus Units Glucose Ketones Leukocytes Nitrite Labor Signs Protein Cervic Dilation Cervic Effacement Cervic Station none Type Weight in lbs Pre/Post Dialysis Refused 213.238299696761 BP Diastolic BP Location Tested BP Systolic [...] Type Weight in lbs Pre/Post Dialysis Refused 220.067345949402 BP Diastolic BP Location Tested BP Systolic BP Type 81 124 Fetus Heart Rate Present Fetus Movement A Yes Comments Patient states that is havin g some light cramping. reviewed US, discussed renal dilation plan rpt in 4 weeks, reviewed vaccines. planning classes at [place], discussed EIOL an option answered questions f/u 2 weeks Flowsheet Date 06/01/2024 Watkins Score Blood Edema Fundus Height Fundus Units Glucose Ketones Leukocytes Nitrite Labor Signs Protein Cervic Dilation Cervic Effacement Cervic Station 33 cm Type Weight in lbs Pre/Post Dialysis Refused 228.677451431455 BP Diastolic BP Location Tested BP Systolic [...] Type Weight in lbs Pre/Post Dialysis Refused 235.720968854188 BP Diastolic BP Location Tested BP Systolic [...] Type Weight in lbs Pre/Post Dialysis Refused 236.186815097222 BP Diastolic BP Location Tested BP Systolic [...] Weight in lbs Pre/Post Dialysis Refused Weight 236.683121008474 BP Diastolic BP Location Tested BP Systolic [...] Type Weight in lbs Pre/Post Dialysis Refused 244.520826376986 BP Diastolic BP Location Tested BP Systolic [...]
== END 2024-07-15 13:30 | disposition home or self-care (01) | DRG 560 ==
LOC: ANHOB2 07-15 10:20 → ANHLDR 07-16 08:30
PROVIDERS: Advanced Practice Midwife; Admitting Provider Obstetrics & Gynecology; PCP Nurse Practitioner Family; Visit Provider Obstetrics & Gynecology
DX: O99.824 Streptococcus B carrier state complicating childbirth (principal); Z37.0 Single live birth; Z3A.39 39 weeks gestation of pregnancy
CPT/HCPCS: 36415; 85014; 85018; 85025; 86592; 86703; 86850; 86900; 86901; 90710; A9270; G0432; J0290; J2405; J2590; J2795; J7120